=== PATIENT | male | born 1950 | race African-American/Black ===

== ENCOUNTER → 2017-08-30 | Outpatient (CLI) | payer MEDICARE, BC | END | disposition home or self-care (01) | LOC: HKI 08:45 | DX: M17.12 Unilateral primary osteoarthritis, left knee (principal); D57.1 Sickle-cell disease without crisis; Z79.01 Long term (current) use of anticoagulants | CPT/HCPCS: 73562; 73562-50 ==

== ENCOUNTER → 2017-09-20 | Outpatient (CLI) | payer MEDICARE, BC | END | disposition home or self-care (01) | LOC: HKI 10:49 | DX: Z01.818 Encounter for other preprocedural examination (principal) | CPT/HCPCS: G0463 ==

== ENCOUNTER 2017-09-30 08:15 | Observation (INO) | payer MEDICARE, BC ==
[~2017-09-30 08:15] MED LIST: ACETAMINOPHEN 1000MG/100ML IV 100 ML IVPB; CEFAZOLIN 2 GM/50 ML (PMX) 50 ML (FOR WT < 120 KG) IVPB; CELECOXIB 200 MG CAP PO; DEXAMETHASONE 4 MG/ML 1 ML INJ IV; ETOMIDATE 20 MG INJ; LANSOPRAZOLE 30 MG CAP PO; ONDANSETRON 4 MG INJ IV; TRANEXAMIC ACID 1,000 MG in D5W 100 ML AT CLOSURE X1 IVPB; TRANEXAMIC ACID 1,000 MG in D5W 100 ML AT INCISION X1 IVPB
[2017-09-30 09:29] LABS: ADD MAN DIFF? NO
[2017-09-30 09:32] LABS: WHITE BLOOD COUNT 8.3 10^3/ul (4.8-10.8)
[2017-09-30 09:32] LABS: ABNORMAL IP MESSAGE 1; BASOPHIL # 0.1 10^3/ul (0.0-0.1); BASOPHILS % 0.7 % (0.0-2.0); EOSINOPHILS # 0.1 10^3/ul (0.0-0.5); EOSINOPHILS % 0.8 % (0.0-7.0); HEMOGLOBIN 7.1 g/dl (14.0-18.0); LYMPHOCYTES # 1.1 10^3/ul (0.8-2.9); LYMPHOCYTES % 13.5 % (15.0-51.0); MEAN CORPUSCULAR HEMOGLOBIN 30.2 pg (29.0-33.0); MEAN CORPUSCULAR HGB CONC 35.5 g/dl (32.0-37.0); MEAN CORPUSCULAR VOLUME 85.1 fl (82.0-101.0); MEAN PLATELET VOLUME 10.4 fl (7.4-10.4); MONOCYTE # 1.2 10^3/ul (0.3-0.9); MONOCYTES % 14.2 % (0.0-11.0); NEUTROPHIL # 5.8 10^3/ul (1.6-7.5); NEUTROPHILS % 70.1 % (39.0-77.0); NUCLEATED RED BLOOD CELLS # 0.5 10^3/ul (0.0-0.0); NUCLEATED RED BLOOD CELLS% 5.7 /100WBC (0.0-0.0); PLATELET COUNT 354 10^3/UL (140-415); POSITIVE DIFF @See below; RED BLOOD COUNT 2.35 10^6/ul (4.70-6.10); RED CELL DISTRIBUTION WIDTH 26.8 % (11.5-14.5)
[2017-09-30 09:36] LABS: HOLD TRANSMISSIONS 1
[2017-09-30 09:53] LABS: INR 1.28; PROTIME 16.2 Sec (11.9-14.9); PT RATIO 1.3
[2017-09-30 09:54] LABS: PARTIAL THROMBOPLASTIN TIME 30.3 Sec (25.0-35.0)
[2017-09-30 09:58] LABS: ALANINE AMINOTRANSFERASE 39 IU/L (13-69); ALBUMIN/GLOBULIN RATIO 0.97; ALKALINE PHOSPHATASE 182 IU/L (42-121); ANION GAP 18 (8-16); ASPARTATE AMINO TRANSFERASE 73 IU/L (15-46); BILIRUBIN,INDIRECT 4.7 mg/dl (0-1.1); BILIRUBIN,TOTAL 4.9 mg/dl (0.2-1.3); CARBON DIOXIDE 21 mmol/L (21-31); CHLORIDE 107 mmol/L (97-110); GLUCOSE 99 mg/dl (70-220); TOTAL PROTEIN 8.1 g/dl (6.1-8.1)
[2017-09-30 10:01] LABS: BLOOD UREA NITROGEN 16 mg/dl (7-20); CALCIUM 8.2 mg/dl (8.4-10.2); CREATININE 1.01 mg/dl (0.61-1.24); POTASSIUM 4.5 mmol/L (3.5-5.1); SODIUM 141 mmol/L (135-144)
[2017-09-30] MEDS ORDERED: MIDAZOLAM 1 MG/ML 2 ML INJ (11:12)
[2017-09-30] MEDS ORDERED: PROPOFOL 20 ML (11:12)
[2017-09-30] MEDS ORDERED: FENTAnyl 50 MCG/ML VIAL (11:12)
[2017-09-30] MEDS ORDERED: BUPIVACAINE 0.75%/DEXT (SPINAL) 2 ML INJ (11:13)
[2017-09-30] MEDS ORDERED: LIDOCAINE 1% (MDV) 20 ML INJ (11:13)
[2017-09-30] MEDS: POLYMYXIN B 500000 UNIT INJ (11:48)
[2017-09-30] MEDS: BACITRACIN 50000 UNITS INJ (11:48)
[2017-09-30] MEDS ORDERED: CEFAZOLIN 1 GM INJ (11:50)
[2017-09-30] MEDS ORDERED: PHENYLephrine (100 MCG/ML) 5ML SYG (12:12)
[2017-09-30] MEDS ORDERED: FAMOTIDINE 20 MG INJ (12:23)
[2017-09-30] MEDS ORDERED: ONDANSETRON 4 MG INJ (12:23)
[2017-09-30] MEDS ORDERED: DEXAMETHASONE 4 MG/ML 1 ML INJ ×2 (12:23→13:09)
[2017-09-30] MEDS ORDERED: ROPIVACAINE 0.5 % 30 ML VIAL (13:09)
[2017-09-30] MEDS ORDERED: NA PHOSPHATE/BIPHOS 133 ML ENEMA PR (13:30)
[2017-09-30] MEDS ORDERED: HYDROmorphONE (0.2 MG/ML) 10ML SYG IV ×2 (13:30)
[2017-09-30] MEDS ORDERED: NALOXONE (0.4 MG/ML) INJ IV (13:30)
[2017-09-30] MEDS ORDERED: MEPERIDINE 25 MG INJ IV (13:30)
[2017-09-30] MEDS ORDERED: DIPHENHYDRAMINE 50 MG INJ IV (13:30)
[2017-09-30] MEDS ORDERED: BISACODYL 10 MG SUPP PR (13:30)
[2017-09-30] MEDS ORDERED: DOCUSATE SODIUM 100 MG CAP PO (13:30)
[2017-09-30] MEDS ORDERED: ONDANSETRON 4 MG INJ IV (13:30)
[2017-09-30] MEDS ORDERED: oxyCODONE 5 MG TAB PO ×3 (13:30)
[2017-09-30] MEDS ORDERED: SENNA/DOCUSATE NA (8.6MG/50MG) TAB PO (13:30)
[2017-09-30] MEDS ORDERED: KETOROLAC 15 MG INJ IV (13:30)
[2017-09-30] MEDS: ONDANSETRON 4 MG INJ IV ×2 (13:30→20:12)
[2017-09-30] MEDS ORDERED: TRIMETHOBENZAMIDE 100 MG/ML VIAL IM (13:30)
[2017-09-30] MEDS ORDERED: MAGNESIUM HYDROXIDE 30ML CUP PO (13:30)
[2017-09-30] MEDS: SOD CHLORIDE 0.9% 1,000 ML IV (16:28)
[2017-09-30] MEDS: CEFAZOLIN 1 GM/50 ML (PMX) 50 ML IVPB ×2 (16:28→21:32)
[2017-09-30] MEDS: WARFARIN 1 MG TAB PO (16:29)
[2017-09-30] MEDS: WARFARIN 5 MG TAB PO (16:29)
[2017-09-30] MEDS: CELECOXIB 100 MG CAP PO (20:11)
[2017-09-30] MEDS: GABAPENTIN 100 MG CAP PO (20:11)
[2017-10-01] MEDS: SOD CHLORIDE 0.9% 1,000 ML IV (01:50)
[2017-10-01] MEDS: ONDANSETRON 4 MG INJ IV ×2 (02:04→06:49)
[2017-10-01] MEDS: CEFAZOLIN 1 GM/50 ML (PMX) 50 ML IVPB (05:20)
[2017-10-01] MEDS: LEVOTHYROXINE 50 MCG TAB PO (05:20)
[2017-10-01 05:42] LABS: ABNORMAL IP MESSAGE 1; HEMATOCRIT 15.6 % (42.0-52.0); MEAN CORPUSCULAR HGB CONC 34.6 g/dl (32.0-37.0); MEAN CORPUSCULAR VOLUME 86.7 fl (82.0-101.0); MEAN PLATELET VOLUME 11.4 fl (7.4-10.4); NUCLEATED RED BLOOD CELLS% 3.6 /100WBC (0.0-0.0); PLATELET COUNT 202 10^3/UL (140-415); POSITIVE DIFF @See below; RED CELL DISTRIBUTION WIDTH 26.5 % (11.5-14.5)
[2017-10-01 05:42] LABS: WHITE BLOOD COUNT 9.4 10^3/ul (4.8-10.8)
[2017-10-01 05:52] LABS: ADD MAN DIFF? YES; HEMOGLOBIN 5.4 g/dl (14.0-18.0); PATH REVIEW? YES
[2017-10-01 06:03] LABS: ANION GAP 13 (8-16); BLOOD UREA NITROGEN 15 mg/dl (7-20); CALCIUM 7.9 mg/dl (8.4-10.2); CARBON DIOXIDE 21 mmol/L (21-31); CHLORIDE 110 mmol/L (97-110); CREATININE 0.85 mg/dl (0.61-1.24); GLUCOSE 145 mg/dl (70-220); POTASSIUM 4.9 mmol/L (3.5-5.1); SODIUM 139 mmol/L (135-144)
[2017-10-01 06:08] LABS: INR 1.31; PROTIME 16.5 Sec (11.9-14.9); PT RATIO 1.3
[2017-10-01] MEDS: BETHANECHOL 25 MG TAB PO (06:49)
[2017-10-01 06:55] LABS: ADD UMIC YES; UR ASCORBIC ACID NEGATIVE (NEGATIVE); UR BACTERIA FEW /HPF (NONE SEEN); UR BILIRUBIN (Dip) NEGATIVE (NEGATIVE); UR BLOOD (Dip) 2+ mg/dL (NEGATIVE); UR CLARITY SLIGHTLY CLOUDY (CLEAR); UR COLOR YELLOW (YELLOW); UR GLUCOSE (Dip) NEGATIVE (NEGATIVE); UR KETONES (Dip) NEGATIVE (NEGATIVE); UR LEUKOCYTE ESTERASE (Dip) NEGATIVE Leu/ul (NEGATIVE); UR NITRITE (Dip) NEGATIVE (NEGATIVE); UR RBC 7 /HPF (0-5); UR SPECIFIC GRAVITY (Dip) 1.004 (1.003-1.030); UR TOTAL PROTEIN (Dip) NEGATIVE (NEGATIVE); UR UROBILINOGEN (Dip) NEGATIVE (NEGATIVE); UR WBC 4 /HPF (0-5)
[2017-10-01 07:07] LABS: IMMEDIATE SPIN CROSSMATCH 1 4
[2017-10-01 07:36] LABS: ANISOCYTOSIS 2+ (0-0); BAND NEUTROPHILS #M 0.3 10^3/ul (0.0-0.6); BAND NEUTROPHILS % (M) 4 % (0-4); ERYTHROBLAST% (NRBC) (M) 7 % (0-0); GIANT THROMBO% (M) 3 % (0-0); HYPOCHROMASIA 1+ (0-0); LYMPHOCYTES #M 0.6 10^3/ul (0.8-2.9); LYMPHOCYTES % (M) 7 % (15-51); MICROCYTOSIS 2+ (0-0); MONOCYTE #M 0.1 10^3/ul (0.3-0.9); MONOCYTES % (M) 2 % (0-11); MYELOCYTES % (M) 1 % (0-0); PLATELET ESTIMATE NORMAL; POIKILOCYTOSIS 2+ (0-0); POLYCHROMASIA 3+ (0-0); RBC MORPHOLOGY COMMENT @See below; SEG NEUT #M 8.1 10^3/ul (1.6-7.5); SEGMENTED NEUTROPHILS (M) % 86 % (39-77); SICKLE CELL 2+ (0-0); SMUDGE%M 1 % (0-0); WBC MORPHOLOGY COMMENT @See below
[2017-10-01] MEDS: FOLIC ACID 1 MG TAB PO (08:50)
[2017-10-01] MEDS: GABAPENTIN 100 MG CAP PO ×2 (08:50→21:05)
[2017-10-01] MEDS: CELECOXIB 100 MG CAP PO ×2 (08:50→21:05)
[2017-10-01] MEDS: AMIODARONE 200 MG TAB PO (08:50)
[2017-10-01] MEDS: FERROUS FUMARATE (SR) TAB PO ×2 (08:50→21:05)
[2017-10-01] MEDS: DOCUSATE SODIUM 100 MG CAP PO ×2 (08:51→21:05)
[2017-10-01 16:43] LABS: ADD MAN DIFF? NO
[2017-10-01 16:45] LABS: BASOPHILS % 0.1 % (0.0-2.0); HEMATOCRIT 25.7 % (42.0-52.0); LYMPHOCYTES # 0.9 10^3/ul (0.8-2.9); LYMPHOCYTES % 6.8 % (15.0-51.0); MEAN CORPUSCULAR HEMOGLOBIN 30.1 pg (29.0-33.0); MEAN PLATELET VOLUME 10.5 fl (7.4-10.4); MONOCYTE # 1.6 10^3/ul (0.3-0.9); MONOCYTES % 11.9 % (0.0-11.0); NEUTROPHILS % 80.3 % (39.0-77.0); NUCLEATED RED BLOOD CELLS # 0.5 10^3/ul (0.0-0.0); NUCLEATED RED BLOOD CELLS% 3.9 /100WBC (0.0-0.0); PLATELET COUNT 307 10^3/UL (140-415); RED BLOOD COUNT 2.99 10^6/ul (4.70-6.10); RED CELL DISTRIBUTION WIDTH 22.8 % (11.5-14.5)
[2017-10-01 16:45] LABS: WHITE BLOOD COUNT 13.7 10^3/ul (4.8-10.8)
[2017-10-01] MEDS: WARFARIN 5 MG TAB PO (17:19)
[2017-10-02] MEDS: LEVOTHYROXINE 50 MCG TAB PO (05:31)
[2017-10-02] MEDS: PANTOPRAZOLE (EC) 40 MG TAB PO (05:31)
[2017-10-02 06:09] LABS: ADD MAN DIFF? NO
[2017-10-02 06:14] LABS: WHITE BLOOD COUNT 10.3 10^3/ul (4.8-10.8)
[2017-10-02 06:14] LABS: ABNORMAL IP MESSAGE 1; BASOPHILS % 0.3 % (0.0-2.0); EOSINOPHILS % 0.3 % (0.0-7.0); HEMATOCRIT 21.7 % (42.0-52.0); HEMOGLOBIN 7.6 g/dl (14.0-18.0); LYMPHOCYTES # 1.4 10^3/ul (0.8-2.9); LYMPHOCYTES % 13.1 % (15.0-51.0); MEAN CORPUSCULAR HEMOGLOBIN 30.3 pg (29.0-33.0); MEAN CORPUSCULAR VOLUME 86.5 fl (82.0-101.0); MEAN PLATELET VOLUME 11.3 fl (7.4-10.4); MONOCYTE # 1.5 10^3/ul (0.3-0.9); MONOCYTES % 14.1 % (0.0-11.0); NEUTROPHIL # 7.4 10^3/ul (1.6-7.5); NEUTROPHILS % 71.6 % (39.0-77.0); NUCLEATED RED BLOOD CELLS # 0.6 10^3/ul (0.0-0.0); NUCLEATED RED BLOOD CELLS% 5.7 /100WBC (0.0-0.0); PLATELET COUNT 265 10^3/UL (140-415); POSITIVE DIFF @See below; RED BLOOD COUNT 2.51 10^6/ul (4.70-6.10); RED CELL DISTRIBUTION WIDTH 23.2 % (11.5-14.5)
[2017-10-02 06:21] LABS: ANION GAP 10 (8-16); BLOOD UREA NITROGEN 16 mg/dl (7-20); CALCIUM 7.9 mg/dl (8.4-10.2); CARBON DIOXIDE 23 mmol/L (21-31); CHLORIDE 110 mmol/L (97-110); CREATININE 0.84 mg/dl (0.61-1.24); GLUCOSE 98 mg/dl (70-220); POTASSIUM 4.9 mmol/L (3.5-5.1); SODIUM 138 mmol/L (135-144)
[2017-10-02] MEDS: FERROUS FUMARATE (SR) TAB PO (08:43)
[2017-10-02] MEDS: DOCUSATE SODIUM 100 MG CAP PO (08:43)
[2017-10-02] MEDS: CELECOXIB 100 MG CAP PO (08:43)
[2017-10-02] MEDS: GABAPENTIN 100 MG CAP PO (08:43)
[2017-10-02] MEDS: AMIODARONE 200 MG TAB PO (08:43)
[2017-10-02] MEDS: FOLIC ACID 1 MG TAB PO (08:43)
== END 2017-10-02 14:10 | disposition home health service (06) ==
LOC: REC 08:15 → MS1 15:09
DX: M17.12 Unilateral primary osteoarthritis, left knee (principal); M87.9 Osteonecrosis, unspecified; D57.1 Sickle-cell disease without crisis; I48.0 Paroxysmal atrial fibrillation; E03.9 Hypothyroidism, unspecified; N40.1 Benign prostatic hyperplasia with lower urinary tract symptoms; R33.8 Other retention of urine; M06.9 Rheumatoid arthritis, unspecified; K21.9 Gastro-esophageal reflux disease without esophagitis
CPT/HCPCS: 27447; 36430; 73560; 80048; 80053; 81001; 85025; 85610; 85730; 86850; 86900; 86901; 86920; 87081; 87086; 88304; 88311; 97110; 97116; 97161; 97167; 97530; 99217

== ENCOUNTER → 2017-10-11 | Outpatient (CLI) | payer MEDICARE, BC | END | disposition home or self-care (01) | LOC: HKI 10:55 | DX: Z47.1 Aftercare following joint replacement surgery (principal); Z96.652 Presence of left artificial knee joint | CPT/HCPCS: 73560; 73560-LT ==

== ENCOUNTER → 2017-11-08 | Outpatient (CLI) | payer MEDICARE, BC | END | disposition home or self-care (01) | LOC: HKI 10:51 | DX: Z09 Encounter for follow-up examination after completed treatment for conditions other than malignant neoplasm (principal); Z96.652 Presence of left artificial knee joint | CPT/HCPCS: 73560; 73560-LT ==

== ENCOUNTER → 2018-01-31 | Outpatient (CLI) | payer MEDICARE, BC | END | disposition home or self-care (01) | LOC: HKI 09:12 | DX: Z47.1 Aftercare following joint replacement surgery (principal); Z96.652 Presence of left artificial knee joint; Z96.642 Presence of left artificial hip joint | CPT/HCPCS: 73560; 73560-LT ==

== ENCOUNTER 2018-02-12 17:26 | Inpatient (IN) | payer MEDICARE, BC ==
[2018-02-12 18:23] LABS: ADD MAN DIFF? NO
[2018-02-12 18:25] LABS: WHITE BLOOD COUNT 19.7 10^3/ul (4.8-10.8)
[2018-02-12 18:26] LABS: ABNORMAL IP MESSAGE 1; BASOPHILS % 0.2 % (0.0-2.0); HEMATOCRIT 22.2 % (42.0-52.0); HEMOGLOBIN 7.9 g/dl (14.0-18.0); LYMPHOCYTES # 0.5 10^3/ul (0.8-2.9); LYMPHOCYTES % 2.5 % (15.0-51.0); MEAN CORPUSCULAR HEMOGLOBIN 32.4 pg (29.0-33.0); MEAN CORPUSCULAR HGB CONC 35.6 g/dl (32.0-37.0); MEAN PLATELET VOLUME 10.1 fl (7.4-10.4); MONOCYTE # 1.7 10^3/ul (0.3-0.9); MONOCYTES % 8.5 % (0.0-11.0); NEUTROPHIL # 17.4 10^3/ul (1.6-7.5); NUCLEATED RED BLOOD CELLS # 0.5 10^3/ul (0.0-0.0); NUCLEATED RED BLOOD CELLS% 2.3 /100WBC (0.0-0.0); PLATELET COUNT 423 10^3/UL (140-415); POSITIVE DIFF @See below; RED BLOOD COUNT 2.44 10^6/ul (4.70-6.10)
[2018-02-12] MEDS: SODIUM CHLORIDE 0.9% 1L BAG IV* (18:29)
[2018-02-12 18:41] LABS: INR 1.64; PROTIME 19.8 Sec (11.9-14.9); PT RATIO 1.5
[2018-02-12 18:42] LABS: PARTIAL THROMBOPLASTIN TIME 39.5 Sec (25.0-35.0)
[2018-02-12 18:43] LABS: ALANINE AMINOTRANSFERASE 44 IU/L (13-69); ALBUMIN 4.1 g/dl (3.3-4.9); ALBUMIN/GLOBULIN RATIO 0.89; ALKALINE PHOSPHATASE 169 IU/L (42-121); ANION GAP 19 (8-16); ASPARTATE AMINO TRANSFERASE 85 IU/L (15-46); BILIRUBIN,TOTAL 7.1 mg/dl (0.2-1.3); BLOOD UREA NITROGEN 14 mg/dl (7-20); CALCIUM 8.5 mg/dl (8.4-10.2); CARBON DIOXIDE 20 mmol/L (21-31); CHLORIDE 98 mmol/L (97-110); CREATININE 0.87 mg/dl (0.61-1.24); GLUCOSE 125 mg/dl (70-220); LIPASE 88 U/L (23-300); POTASSIUM 4.8 mmol/L (3.5-5.1); SODIUM 132 mmol/L (135-144); TOTAL PROTEIN 8.7 g/dl (6.1-8.1)
[2018-02-12 18:53] LABS: LACTIC ACID 4.4 mmol/L (0.5-2.0)
[2018-02-12] MEDS: PIPER-TAZO 3.375 GM IV (PMX) 100 ML IVPB ×2 (19:11→23:52)
[2018-02-12] MEDS: ACETAMINOPHEN 325 MG TAB PO (19:11)
[2018-02-12] MEDS: HYDROmorphONE 0.5 MG/0.5 ML SYG IV (19:30)
[2018-02-12] MEDS: SOD CHLORIDE 0.9% 100 ML (20:14)
[2018-02-12] MEDS: IOHEXOL 300MG/ML 150 ML BTL (20:14)
[2018-02-12] MEDS ORDERED: ONDANSETRON 4 MG INJ IV (20:30)
[2018-02-12] MEDS ORDERED: ACETAMINOPHEN 325 MG TAB PO (20:30)
[2018-02-12 21:12] LABS: HAAIG REFLEX REFLEX FILED
[2018-02-12 21:52] LABS: HEPATITIS B SURFACE ANTIGEN NEGATIVE (NEGATIVE)
[2018-02-12 22:10] LABS: HEPATITIS B CORE ANTIBODY NEGATIVE (NEGATIVE); HEPATITIS C VIRAL ANTIBODY NEGATIVE (NEGATIVE)
[2018-02-12 22:48] LABS: LACTIC ACID 3.2 mmol/L (0.5-2.0)
[2018-02-12] MEDS: HYDROmorphONE 1 MG/ML SYG IV (23:07)
[2018-02-12] MEDS: SOD CHLORIDE 0.45% 1,000 ML IV (23:49)
[2018-02-13] MEDS: HYDROmorphONE 1 MG/ML SYG IV ×3 (05:06→23:26)
[2018-02-13] MEDS: PANTOPRAZOLE 40 MG INJ IV (05:06)
[2018-02-13 06:24] LABS: ABNORMAL IP MESSAGE 1; HEMATOCRIT 19.2 % (42.0-52.0); MEAN CORPUSCULAR HEMOGLOBIN 32.5 pg (29.0-33.0); MEAN CORPUSCULAR HGB CONC 35.4 g/dl (32.0-37.0); MEAN CORPUSCULAR VOLUME 91.9 fl (82.0-101.0); MEAN PLATELET VOLUME 10.6 fl (7.4-10.4); NUCLEATED RED BLOOD CELLS% 1.4 /100WBC (0.0-0.0); PLATELET COUNT 320 10^3/UL (140-415); POSITIVE DIFF @See below; RED BLOOD COUNT 2.09 10^6/ul (4.70-6.10); RED CELL DISTRIBUTION WIDTH 22.5 % (11.5-14.5)
[2018-02-13] MEDS: LEVOTHYROXINE 50 MCG TAB PO (06:33)
[2018-02-13] MEDS: PIPER-TAZO 3.375 GM IV (PMX) 100 ML IVPB ×4 (06:33→23:38)
[2018-02-13 06:39] LABS: LACTIC ACID 1.4 mmol/L (0.5-2.0)
[2018-02-13 06:56] LABS: ADD MAN DIFF? YES; HEMOGLOBIN 6.8 g/dl (14.0-18.0)
[2018-02-13 07:39] LABS: ALBUMIN 3.4 g/dl (3.3-4.9); ALBUMIN/GLOBULIN RATIO 0.94; ALKALINE PHOSPHATASE 138 IU/L (42-121); ANION GAP 11 (8-16); ASPARTATE AMINO TRANSFERASE 61 IU/L (15-46); BILIRUBIN,INDIRECT 5.7 mg/dl (0-1.1); BILIRUBIN,TOTAL 8.7 mg/dl (0.2-1.3); BLOOD UREA NITROGEN 14 mg/dl (7-20); CARBON DIOXIDE 21 mmol/L (21-31); CHLORIDE 104 mmol/L (97-110); CREATININE 0.76 mg/dl (0.61-1.24); GLUCOSE 109 mg/dl (70-220); MAGNESIUM 2.2 mg/dl (1.7-2.5); POTASSIUM 4.4 mmol/L (3.5-5.1); SODIUM 132 mmol/L (135-144)
[2018-02-13 08:01] LABS: ALANINE AMINOTRANSFERASE 44 IU/L (13-69)
[2018-02-13 08:05] LABS: FREE T4 (FREE THYROXINE) 2.63 ng/dl (0.78-2.44)
[2018-02-13] MEDS: AMIODARONE 200 MG TAB PO (09:09)
[2018-02-13] MEDS: FOLIC ACID 1 MG TAB PO (09:09)
[2018-02-13 09:33] LABS: PT RATIO 1.8
[2018-02-13 09:35] LABS: INR 2.04; PARTIAL THROMBOPLASTIN TIME 53.6 Sec (25.0-35.0); PROTIME 23.5 Sec (11.9-14.9)
[2018-02-13 09:55] LABS: ANISOCYTOSIS 3+ (0-0); BAND NEUTROPHILS #M 0.2 10^3/ul (0.0-0.6); BAND NEUTROPHILS % (M) 1 % (0-4); BASOPHIL #M 0.2 10^3/ul (0.0-0.0); BASOPHILS % (M) 1 % (0-2); ERYTHROBLAST% (NRBC) (M) 2 % (0-0); LYMPHOCYTES % (M) 4 % (15-51); MONOCYTES % (M) 8 % (0-11); OVALOCYTES 1+ (0-0); PLATELET ESTIMATE NORMAL; POIKILOCYTOSIS 2+ (0-0); POLYCHROMASIA 2+ (0-0); SEG NEUT #M 21.6 10^3/ul (1.6-7.5); SEGMENTED NEUTROPHILS (M) % 86 % (39-77); SICKLE CELL 2+ (0-0); SMUDGE%M 15 % (0-0); TARGET CELLS 2+ (0-0)
[2018-02-13] MEDS: SOD CHLORIDE 0.45% 1,000 ML IV ×2 (12:20→17:49)
[2018-02-13] MEDS: ACETAMINOPHEN 325 MG TAB PO (14:39)
[2018-02-14] MEDS: ACETAMINOPHEN 325 MG TAB PO (01:09)
[2018-02-14] MEDS: HYDROmorphONE 1 MG/ML SYG IV ×4 (04:42→21:35)
[2018-02-14] MEDS: PANTOPRAZOLE 40 MG INJ IV (06:01)
[2018-02-14] MEDS: PIPER-TAZO 3.375 GM IV (PMX) 100 ML IVPB ×4 (06:02→23:03)
[2018-02-14] MEDS: LEVOTHYROXINE 50 MCG TAB PO (06:30)
[2018-02-14] MEDS: FOLIC ACID 1 MG TAB PO (08:25)
[2018-02-14] MEDS: AMIODARONE 200 MG TAB PO (08:27)
[2018-02-14 11:32] LABS: WHITE BLOOD COUNT 27.1 10^3/ul (4.8-10.8)
[2018-02-14 11:32] LABS: ABNORMAL IP MESSAGE 1; HEMATOCRIT 23.1 % (42.0-52.0); HEMOGLOBIN 8.1 g/dl (14.0-18.0); MEAN CORPUSCULAR HEMOGLOBIN 31.6 pg (29.0-33.0); MEAN CORPUSCULAR HGB CONC 35.1 g/dl (32.0-37.0); MEAN CORPUSCULAR VOLUME 90.2 fl (82.0-101.0); MEAN PLATELET VOLUME 11.3 fl (7.4-10.4); NUCLEATED RED BLOOD CELLS% 0.8 /100WBC (0.0-0.0); PLATELET COUNT 289 10^3/UL (140-415); POSITIVE DIFF @See below; RED BLOOD COUNT 2.56 10^6/ul (4.70-6.10); RED CELL DISTRIBUTION WIDTH 19.6 % (11.5-14.5)
[2018-02-14 11:39] LABS: ADD MAN DIFF? YES
[2018-02-14 11:50] LABS: LACTIC ACID 1.8 mmol/L (0.5-2.0)
[2018-02-14 11:51] LABS: ALANINE AMINOTRANSFERASE 41 IU/L (13-69); ALBUMIN 2.8 g/dl (3.3-4.9); ALBUMIN/GLOBULIN RATIO 0.73; ALKALINE PHOSPHATASE 126 IU/L (42-121); AMYLASE 74 U/L (11-123); ANION GAP 14 (8-16); ASPARTATE AMINO TRANSFERASE 43 IU/L (15-46); BILIRUBIN,INDIRECT 6.1 mg/dl (0-1.1); BILIRUBIN,TOTAL 10.1 mg/dl (0.2-1.3); BLOOD UREA NITROGEN 19 mg/dl (7-20); CALCIUM 8.6 mg/dl (8.4-10.2); CARBON DIOXIDE 20 mmol/L (21-31); CHLORIDE 105 mmol/L (97-110); CREATININE 0.93 mg/dl (0.61-1.24); GLUCOSE 90 mg/dl (70-220); LIPASE 60 U/L (23-300); POTASSIUM 4.2 mmol/L (3.5-5.1); SODIUM 135 mmol/L (135-144); TOTAL PROTEIN 6.6 g/dl (6.1-8.1)
[2018-02-14 13:18] LABS: ANISOCYTOSIS 2+ (0-0); BAND NEUTROPHILS % (M) 4 % (0-4); EOSINOPHILS % (M) 1 % (0-7); LYMPHOCYTES % (M) 4 % (15-51); MONOCYTE #M 1.8 10^3/ul (0.3-0.9); MONOCYTES % (M) 7 % (0-11); MYELOCYTES #M 0.2 10^3/ul (0.0-0.0); MYELOCYTES % (M) 1 % (0-0); PLATELET ESTIMATE NORMAL; POIKILOCYTOSIS 1+ (0-0); POLYCHROMASIA 3+ (0-0); SEG NEUT #M 22.8 10^3/ul (1.6-7.5); SEGMENTED NEUTROPHILS (M) % 83 % (39-77); SICKLE CELL 1+ (0-0); SMUDGE%M 6 % (0-0); TARGET CELLS 2+ (0-0)
[2018-02-14] MEDS: SOD CHLORIDE 0.45% 1,000 ML IV (15:14)
[2018-02-14 18:47] LABS: INR 2.29; PROTIME 25.8 Sec (11.9-14.9)
[2018-02-14 18:48] LABS: PARTIAL THROMBOPLASTIN TIME 53.6 Sec (25.0-35.0)
[2018-02-15] MEDS: HYDROmorphONE 1 MG/ML SYG IV ×4 (02:20→19:04)
[2018-02-15 03:54] LABS: IMMEDIATE SPIN CROSSMATCH 1 1
[2018-02-15] MEDS: SOD CHLORIDE 0.45% 1,000 ML IV ×3 (05:40→20:02)
[2018-02-15] MEDS: PANTOPRAZOLE 40 MG INJ IV (05:40)
[2018-02-15] MEDS: PIPER-TAZO 3.375 GM IV (PMX) 100 ML IVPB ×4 (05:45→23:15)
[2018-02-15] MEDS: LEVOTHYROXINE 50 MCG TAB PO (06:25)
[2018-02-15] MEDS: ACETAMINOPHEN 325 MG TAB PO (06:45)
[2018-02-15 07:29] LABS: ABNORMAL IP MESSAGE 1; HEMATOCRIT 18.9 % (42.0-52.0); MEAN CORPUSCULAR HEMOGLOBIN 31.4 pg (29.0-33.0); MEAN CORPUSCULAR HGB CONC 34.9 g/dl (32.0-37.0); MEAN PLATELET VOLUME 11.3 fl (7.4-10.4); PLATELET COUNT 264 10^3/UL (140-415); POSITIVE DIFF @See below; RED CELL DISTRIBUTION WIDTH 19.9 % (11.5-14.5)
[2018-02-15 07:40] LABS: HEMOGLOBIN 6.6 g/dl (14.0-18.0)
[2018-02-15 07:41] LABS: PATH REVIEW? YES
[2018-02-15 07:45] LABS: INR 2.08; PROTIME 23.9 Sec (11.9-14.9); PT RATIO 1.9
[2018-02-15 07:46] LABS: PARTIAL THROMBOPLASTIN TIME 58.9 Sec (23.0-35.0)
[2018-02-15 07:48] LABS: ALANINE AMINOTRANSFERASE 33 IU/L (13-69); ALBUMIN 2.8 g/dl (3.3-4.9); ALBUMIN/GLOBULIN RATIO 0.75; ALKALINE PHOSPHATASE 101 IU/L (42-121); ANION GAP 15 (8-16); ASPARTATE AMINO TRANSFERASE 36 IU/L (15-46); BILIRUBIN,INDIRECT 6.3 mg/dl (0-1.1); BILIRUBIN,TOTAL 10.3 mg/dl (0.2-1.3); BLOOD UREA NITROGEN 22 mg/dl (7-20); CALCIUM 8.5 mg/dl (8.4-10.2); CARBON DIOXIDE 21 mmol/L (21-31); CHLORIDE 107 mmol/L (97-110); CREATININE 1.01 mg/dl (0.61-1.24); GLUCOSE 91 mg/dl (70-220); POTASSIUM 3.6 mmol/L (3.5-5.1); SODIUM 139 mmol/L (135-144); TOTAL PROTEIN 6.5 g/dl (6.1-8.1)
[2018-02-15 08:33] LABS: ANISOCYTOSIS 2+ (0-0); BURR CELLS 1+ (0-0); LYMPHOCYTES #M 0.9 10^3/ul (0.8-2.9); LYMPHOCYTES % (M) 4 % (15-51); MONOCYTE #M 1.6 10^3/ul (0.3-0.9); MONOCYTES % (M) 7 % (0-11); PLATELET ESTIMATE NORMAL; POIKILOCYTOSIS 2+ (0-0); POLYCHROMASIA 3+ (0-0); SCHISTOCYTES 1+ (0-0); SEGMENTED NEUTROPHILS (M) % 89 % (39-77); SICKLE CELL 1+ (0-0); SMUDGE%M 11 % (0-0); TARGET CELLS 1+ (0-0); TEAR DROP CELLS 1+ (0-0)
[2018-02-15 08:37] LABS: ADD MAN DIFF? YES
[2018-02-15] MEDS: FOLIC ACID 1 MG TAB PO (08:43)
[2018-02-15] MEDS: AMIODARONE 200 MG TAB PO (08:45)
[2018-02-15 11:13] LABS: IMMEDIATE SPIN CROSSMATCH 1
[2018-02-15] MEDS: PHYTONADIONE 10 MG in DEXTROSE 5% 50 ML IVPB ×2 (12:54→21:38)
[2018-02-15] MEDS: PHYTONADIONE (1 MG/ML PO SYG) PO (23:41)
[2018-02-16] MEDS: HYDROmorphONE 1 MG/ML SYG IV ×2 (00:35→10:25)
[2018-02-16] MEDS: ONDANSETRON 4 MG INJ IV (00:35)
[2018-02-16] MEDS: PANTOPRAZOLE 40 MG INJ IV (05:30)
[2018-02-16] MEDS: PIPER-TAZO 3.375 GM IV (PMX) 100 ML IVPB ×3 (05:30→17:52)
[2018-02-16 06:47] LABS: ADD MAN DIFF? NO
[2018-02-16 06:51] LABS: WHITE BLOOD COUNT 21.5 10^3/ul (4.8-10.8)
[2018-02-16 06:51] LABS: ABNORMAL IP MESSAGE 1; BASOPHIL # 0.1 10^3/ul (0.0-0.1); BASOPHILS % 0.4 % (0.0-2.0); EOSINOPHILS % 0.2 % (0.0-7.0); LYMPHOCYTES # 0.7 10^3/ul (0.8-2.9); LYMPHOCYTES % 3.1 % (15.0-51.0); MEAN CORPUSCULAR HEMOGLOBIN 30.5 pg (29.0-33.0); MEAN CORPUSCULAR HGB CONC 34.8 g/dl (32.0-37.0); MEAN CORPUSCULAR VOLUME 87.8 fl (82.0-101.0); MEAN PLATELET VOLUME 10.8 fl (7.4-10.4); MONOCYTE # 2.5 10^3/ul (0.3-0.9); MONOCYTES % 11.7 % (0.0-11.0); NEUTROPHILS % 83.7 % (39.0-77.0); NUCLEATED RED BLOOD CELLS # 0.4 10^3/ul (0.0-0.0); PLATELET COUNT 330 10^3/UL (140-415); POSITIVE DIFF @See below; RED BLOOD COUNT 2.62 10^6/ul (4.70-6.10); RED CELL DISTRIBUTION WIDTH 20.8 % (11.5-14.5)
[2018-02-16] MEDS: LEVOTHYROXINE 50 MCG TAB PO ×2 (07:00→08:08)
[2018-02-16 07:11] LABS: INR 1.21; PROTIME 15.5 Sec (11.9-14.9); PT RATIO 1.2
[2018-02-16 07:12] LABS: PARTIAL THROMBOPLASTIN TIME 43.6 Sec (23.0-35.0)
[2018-02-16] MEDS: FOLIC ACID 1 MG TAB PO ×2 (07:38→08:08)
[2018-02-16] MEDS: AMIODARONE 200 MG TAB PO (08:08)
[2018-02-16 10:08] LABS: PARTIAL THROMBOPLASTIN TIME 42.7 Sec (23.0-35.0)
[2018-02-16 10:36] LABS: ANISOCYTOSIS 2+ (0-0); BAND NEUTROPHILS #M 0.4 10^3/ul (0.0-0.6); BAND NEUTROPHILS % (M) 2 % (0-4); BURR CELLS 1+ (0-0); ERYTHROBLAST% (NRBC) (M) 2 % (0-0); HYPOCHROMASIA 1+ (0-0); LYMPHOCYTES #M 1.2 10^3/ul (0.8-2.9); LYMPHOCYTES % (M) 6 % (15-51); MONOCYTES % (M) 14 % (0-11); PLATELET ESTIMATE NORMAL; POIKILOCYTOSIS 3+ (0-0); POLYCHROMASIA 1+ (0-0); SEG NEUT #M 16.9 10^3/ul (1.6-7.5); SEGMENTED NEUTROPHILS (M) % 78 % (39-77); SICKLE CELL 1+ (0-0); TARGET CELLS 1+ (0-0)
[2018-02-16] MEDS: SOD CHLORIDE 0.45% 1,000 ML IV (15:24)
[2018-02-16 18:28] LABS: 50/50 PTT IMMED 38.7 Sec
[2018-02-16 18:30] LABS: 50/50 PTT 1 HOUR 46.8 Sec
[2018-02-16] MEDS ORDERED: BUPIVACAINE 0.25%/EPI (SDV) 30 ML INJ (19:02)
[2018-02-16] MEDS ORDERED: LIDOCAINE 1% (MPF) 10 ML INJ (19:02)
[2018-02-16] MEDS ORDERED: IOHEXOL 300MG/ML 30 ML BTL (19:03)
[2018-02-16] MEDS ORDERED: LIDOCAINE 1% (MDV) 20 ML INJ ×2 (19:04→22:04)
[2018-02-16] MEDS: LIDOCAINE 1% (MPF) 30 ML INJ INJ (20:28)
[2018-02-16] MEDS: BUPIVACAINE 0.25%/EPI (SDV) 30 ML INJ INJ (20:28)
[2018-02-16] MEDS ORDERED: ETOMIDATE 20 MG INJ (22:03)
[2018-02-16] MEDS ORDERED: ROCURONIUM 50 MG INJ (22:04)
[2018-02-16] MEDS ORDERED: METOPROLOL 5 MG INJ (22:04)
[2018-02-16] MEDS ORDERED: ACETAMINOPHEN 1000MG/100ML IV 100 ML (22:04)
[2018-02-16] MEDS ORDERED: ONDANSETRON 4 MG INJ (22:04)
[2018-02-16] MEDS ORDERED: MIDAZOLAM 1 MG/ML 2 ML INJ (22:04)
[2018-02-16] MEDS ORDERED: ROPIVACAINE 0.2% 20 ML VIAL (22:04)
[2018-02-16] MEDS ORDERED: DEXAMETHASONE 4 MG/ML 1 ML INJ (22:04)
[2018-02-16] MEDS ORDERED: SUGAMMADEX SODIUM 200 MG/2 ML VIAL IV (22:22)
[2018-02-16] MEDS ORDERED: HYDROmorphONE 1 MG/5 ML IV SYRINGE IV ×2 (23:00)
[2018-02-16 23:04] LABS: ADD MAN DIFF? NO
[2018-02-16 23:07] LABS: WHITE BLOOD COUNT 19.1 10^3/ul (4.8-10.8)
[2018-02-16 23:07] LABS: ABNORMAL IP MESSAGE 1; BASOPHIL # 0.1 10^3/ul (0.0-0.1); BASOPHILS % 0.3 % (0.0-2.0); EOSINOPHILS % 0.1 % (0.0-7.0); HEMATOCRIT 19.2 % (42.0-52.0); LYMPHOCYTES # 0.4 10^3/ul (0.8-2.9); MEAN CORPUSCULAR HEMOGLOBIN 30.3 pg (29.0-33.0); MEAN CORPUSCULAR HGB CONC 34.9 g/dl (32.0-37.0); MEAN CORPUSCULAR VOLUME 86.9 fl (82.0-101.0); MEAN PLATELET VOLUME 10.3 fl (7.4-10.4); MONOCYTES % 5.2 % (0.0-11.0); NEUTROPHIL # 17.4 10^3/ul (1.6-7.5); NEUTROPHILS % 90.7 % (39.0-77.0); NUCLEATED RED BLOOD CELLS # 0.4 10^3/ul (0.0-0.0); NUCLEATED RED BLOOD CELLS% 2.1 /100WBC (0.0-0.0); PLATELET COUNT 240 10^3/UL (140-415); POSITIVE DIFF @See below; RED BLOOD COUNT 2.21 10^6/ul (4.70-6.10); RED CELL DISTRIBUTION WIDTH 21.2 % (11.5-14.5)
[2018-02-16 23:14] LABS: HEMOGLOBIN 6.7 g/dl (14.0-18.0)
[2018-02-17] MEDS ORDERED: DIPHENHYDRAMINE 50 MG INJ (00:24)
[2018-02-17] MEDS: PIPER-TAZO 3.375 GM IV (PMX) 100 ML IVPB ×5 (00:46→23:24)
[2018-02-17 02:36] LABS: AHG CROSSMATCH 1 2
[2018-02-17] MEDS: PANTOPRAZOLE 40 MG INJ IV (06:06)
[2018-02-17] MEDS: LEVOTHYROXINE 50 MCG TAB PO (06:06)
[2018-02-17 06:11] LABS: ADD MAN DIFF? NO
[2018-02-17 06:14] LABS: WHITE BLOOD COUNT 16.5 10^3/ul (4.8-10.8)
[2018-02-17 06:14] LABS: ABNORMAL IP MESSAGE 1; BASOPHILS % 0.2 % (0.0-2.0); HEMATOCRIT 22.1 % (42.0-52.0); HEMOGLOBIN 7.7 g/dl (14.0-18.0); LYMPHOCYTES # 0.5 10^3/ul (0.8-2.9); LYMPHOCYTES % 2.7 % (15.0-51.0); MEAN CORPUSCULAR HEMOGLOBIN 30.3 pg (29.0-33.0); MEAN CORPUSCULAR HGB CONC 34.8 g/dl (32.0-37.0); MEAN PLATELET VOLUME 11.5 fl (7.4-10.4); MONOCYTE # 0.7 10^3/ul (0.3-0.9); MONOCYTES % 4.3 % (0.0-11.0); NEUTROPHIL # 15.2 10^3/ul (1.6-7.5); NEUTROPHILS % 91.8 % (39.0-77.0); NUCLEATED RED BLOOD CELLS # 0.4 10^3/ul (0.0-0.0); NUCLEATED RED BLOOD CELLS% 2.4 /100WBC (0.0-0.0); PLATELET COUNT 230 10^3/UL (140-415); POSITIVE DIFF @See below; RED BLOOD COUNT 2.54 10^6/ul (4.70-6.10); RED CELL DISTRIBUTION WIDTH 19.6 % (11.5-14.5)
[2018-02-17 07:05] LABS: ALANINE AMINOTRANSFERASE 55 IU/L (13-69); ALBUMIN 2.5 g/dl (3.3-4.9); ALBUMIN/GLOBULIN RATIO 0.71; ALKALINE PHOSPHATASE 73 IU/L (42-121); ANION GAP 15 (8-16); ASPARTATE AMINO TRANSFERASE 108 IU/L (15-46); BILIRUBIN,TOTAL 13.7 mg/dl (0.2-1.3); CALCIUM 8.2 mg/dl (8.4-10.2); CARBON DIOXIDE 19 mmol/L (21-31); CHLORIDE 111 mmol/L (97-110); CREATININE 1.21 mg/dl (0.61-1.24); GLUCOSE 120 mg/dl (70-220); POTASSIUM 3.8 mmol/L (3.5-5.1); SODIUM 141 mmol/L (135-144)
[2018-02-17] MEDS: HYDROCHLOROTHIAZIDE 25 MG TAB PO (07:32)
[2018-02-17] MEDS: FOLIC ACID 1 MG TAB PO (07:32)
[2018-02-17] MEDS: AMIODARONE 200 MG TAB PO (07:33)
[2018-02-17 07:49] LABS: BLOOD UREA NITROGEN 32 mg/dl (7-20)
[2018-02-17] MEDS: HYDROmorphONE 1 MG/ML SYG IV ×3 (11:52→23:17)
[2018-02-17] MEDS: ATENOLOL 50 MG TAB NGT ×2 (15:23→23:17)
[2018-02-17] MEDS: SOD CHLORIDE 0.45% 1,000 ML IV ×2 (15:26→23:00)
[2018-02-18] MEDS: PIPER-TAZO 3.375 GM IV (PMX) 100 ML IVPB ×4 (05:50→23:48)
[2018-02-18] MEDS: PANTOPRAZOLE 40 MG INJ IV (05:50)
[2018-02-18] MEDS: LEVOTHYROXINE 50 MCG TAB PO (05:50)
[2018-02-18 07:16] LABS: ABNORMAL IP MESSAGE 1; HEMOGLOBIN 7.4 g/dl (14.0-18.0); MEAN CORPUSCULAR HEMOGLOBIN 30.5 pg (29.0-33.0); MEAN CORPUSCULAR HGB CONC 35.2 g/dl (32.0-37.0); MEAN CORPUSCULAR VOLUME 86.4 fl (82.0-101.0); MEAN PLATELET VOLUME 11.7 fl (7.4-10.4); NUCLEATED RED BLOOD CELLS% 3.6 /100WBC (0.0-0.0); PLATELET COUNT 199 10^3/UL (140-415); POSITIVE DIFF @See below; RED BLOOD COUNT 2.43 10^6/ul (4.70-6.10); RED CELL DISTRIBUTION WIDTH 20.6 % (11.5-14.5)
[2018-02-18 07:16] LABS: WHITE BLOOD COUNT 13.5 10^3/ul (4.8-10.8)
[2018-02-18 07:30] LABS: ADD MAN DIFF? YES
[2018-02-18 08:26] LABS: ALANINE AMINOTRANSFERASE 52 IU/L (13-69); ALBUMIN 2.4 g/dl (3.3-4.9); ALBUMIN/GLOBULIN RATIO 0.66; ALKALINE PHOSPHATASE 73 IU/L (42-121); ANION GAP 14 (8-16); ASPARTATE AMINO TRANSFERASE 66 IU/L (15-46); BILIRUBIN,INDIRECT 4.3 mg/dl (0-1.1); BILIRUBIN,TOTAL 14.5 mg/dl (0.2-1.3); BLOOD UREA NITROGEN 37 mg/dl (7-20); CALCIUM 8.4 mg/dl (8.4-10.2); CARBON DIOXIDE 22 mmol/L (21-31); CHLORIDE 111 mmol/L (97-110); CREATININE 1.17 mg/dl (0.61-1.24); GLUCOSE 96 mg/dl (70-220); POTASSIUM 3.7 mmol/L (3.5-5.1); SODIUM 143 mmol/L (135-144)
[2018-02-18] MEDS: FOLIC ACID 1 MG TAB PO (08:50)
[2018-02-18] MEDS: ATENOLOL 50 MG TAB NGT ×2 (08:52→20:20)
[2018-02-18] MEDS: AMIODARONE 200 MG TAB PO (08:52)
[2018-02-18 10:20] LABS: ANISOCYTOSIS 2+ (0-0); BURR CELLS 1+ (0-0); ERYTHROBLAST% (NRBC) (M) 5 % (0-0); GIANT THROMBO% (M) 7 % (0-0); LYMPHOCYTES #M 0.5 10^3/ul (0.8-2.9); LYMPHOCYTES % (M) 4 % (15-51); MONOCYTE #M 2.5 10^3/ul (0.3-0.9); MONOCYTES % (M) 19 % (0-11); MYELOCYTES #M 0.2 10^3/ul (0.0-0.0); MYELOCYTES % (M) 2 % (0-0); PLATELET ESTIMATE NORMAL; POIKILOCYTOSIS 1+ (0-0); POLYCHROMASIA 3+ (0-0); SCHISTOCYTES 1+ (0-0); SEGMENTED NEUTROPHILS (M) % 75 % (39-77); SICKLE CELL 1+ (0-0); SMUDGE%M 2 % (0-0); TARGET CELLS 1+ (0-0)
[2018-02-18] MEDS: HYDROmorphONE 1 MG/ML SYG IV ×3 (11:04→20:19)
[2018-02-18] MEDS: SOD CHLORIDE 0.45% 1,000 ML IV ×2 (11:58→23:48)
[2018-02-18 17:36] LABS: ANA SCREEN POSITIVE (NEGATIVE)
[2018-02-18 19:06] LABS: ANA PATTERN HOMOGENEOUS
[2018-02-19] MEDS: HYDROmorphONE 1 MG/ML SYG IV ×4 (01:31→23:07)
[2018-02-19] MEDS: SOD CHLORIDE 0.45% 1,000 ML IV ×2 (01:40→15:16)
[2018-02-19] MEDS: PANTOPRAZOLE 40 MG INJ IV (06:29)
[2018-02-19] MEDS: PIPER-TAZO 3.375 GM IV (PMX) 100 ML IVPB ×4 (06:30→23:06)
[2018-02-19] MEDS: LEVOTHYROXINE 50 MCG TAB PO (06:30)
[2018-02-19] MEDS: FOLIC ACID 1 MG TAB PO (08:17)
[2018-02-19] MEDS: AMIODARONE 200 MG TAB PO (08:18)
[2018-02-19] MEDS: ATENOLOL 50 MG TAB NGT ×2 (08:18→21:02)
[2018-02-19] MEDS: LACTATED RINGER'S 500 ML IV (11:49)
[2018-02-19 20:42] LABS: HEXAGONAL PHASE CONFIRMATION POSITIVE (NEGATIVE); THROMBIN CLOTTING TIME 16 sec (13-19)
[2018-02-20] MEDS: SOD CHLORIDE 0.45% 1,000 ML IV ×3 (02:39→21:43)
[2018-02-20] MEDS: PIPER-TAZO 3.375 GM IV (PMX) 100 ML IVPB ×3 (06:38→17:33)
[2018-02-20] MEDS: HYDROmorphONE 1 MG/ML SYG IV (06:38)
[2018-02-20] MEDS: LEVOTHYROXINE 50 MCG TAB PO (06:38)
[2018-02-20] MEDS: PANTOPRAZOLE 40 MG INJ IV (06:38)
[2018-02-20 06:58] LABS: ABNORMAL IP MESSAGE 1; HEMOGLOBIN 7.4 g/dl (14.0-18.0); MEAN CORPUSCULAR HEMOGLOBIN 29.7 pg (29.0-33.0); MEAN CORPUSCULAR HGB CONC 33.6 g/dl (32.0-37.0); MEAN CORPUSCULAR VOLUME 88.4 fl (82.0-101.0); MEAN PLATELET VOLUME 11.2 fl (7.4-10.4); NUCLEATED RED BLOOD CELLS% 20.5 /100WBC (0.0-0.0); PLATELET COUNT 331 10^3/UL (140-415); POSITIVE DIFF @See below; RED BLOOD COUNT 2.49 10^6/ul (4.70-6.10); RED CELL DISTRIBUTION WIDTH 21.8 % (11.5-14.5)
[2018-02-20 06:58] LABS: WHITE BLOOD COUNT 19.4 10^3/ul (4.8-10.8)
[2018-02-20 07:18] LABS: ADD MAN DIFF? YES
[2018-02-20 07:26] LABS: ALANINE AMINOTRANSFERASE 42 IU/L (13-69); ALBUMIN 2.3 g/dl (3.3-4.9); ALBUMIN/GLOBULIN RATIO 0.63; ALKALINE PHOSPHATASE 70 IU/L (42-121); ANION GAP 13 (8-16); ASPARTATE AMINO TRANSFERASE 51 IU/L (15-46); BILIRUBIN,INDIRECT 3.2 mg/dl (0-1.1); BILIRUBIN,TOTAL 12.8 mg/dl (0.2-1.3); BLOOD UREA NITROGEN 30 mg/dl (7-20); CALCIUM 8.1 mg/dl (8.4-10.2); CARBON DIOXIDE 21 mmol/L (21-31); CHLORIDE 110 mmol/L (97-110); GLUCOSE 82 mg/dl (70-220); POTASSIUM 3.2 mmol/L (3.5-5.1); SODIUM 141 mmol/L (135-144); TOTAL PROTEIN 5.9 g/dl (6.1-8.1)
[2018-02-20] MEDS: AMIODARONE 200 MG TAB PO (08:13)
[2018-02-20] MEDS: FOLIC ACID 1 MG TAB PO (08:13)
[2018-02-20] MEDS: ATENOLOL 50 MG TAB NGT ×2 (08:13→21:00)
[2018-02-20 13:11] LABS: ANISOCYTOSIS 1+ (0-0); BAND NEUTROPHILS #M 0.1 10^3/ul (0.0-0.6); BAND NEUTROPHILS % (M) 1 % (0-4); BURR CELLS 1+ (0-0); ERYTHROBLAST% (NRBC) (M) 26 % (0-0); GIANT THROMBO% (M) 9 % (0-0); LYMPHOCYTES #M 1.3 10^3/ul (0.8-2.9); LYMPHOCYTES % (M) 7 % (15-51); MONOCYTE #M 2.1 10^3/ul (0.3-0.9); MONOCYTES % (M) 11 % (0-11); MYELOCYTES #M 0.7 10^3/ul (0.0-0.0); MYELOCYTES % (M) 4 % (0-0); OVALOCYTES 1+ (0-0); PLATELET ESTIMATE NORMAL; POIKILOCYTOSIS 1+ (0-0); POLYCHROMASIA 3+ (0-0); PROMYELOCYTES #M 0.3 10^3/ul (0-0); PROMYELOCYTES % (M) 2 % (0-0); SCHISTOCYTES 1+ (0-0); SEG NEUT #M 14.6 10^3/ul (1.6-7.5); SEGMENTED NEUTROPHILS (M) % 75 % (39-77); SICKLE CELL 1+ (0-0); SMUDGE%M 1 % (0-0); TARGET CELLS 2+ (0-0)
[2018-02-20 15:16] LABS: CARDIOLIPIN AB - IGA <11 APL; CARDIOLIPIN AB - IGG <14 GPL; CARDIOLIPIN AB - IGM <12 MPL
[2018-02-21] MEDS: PIPER-TAZO 3.375 GM IV (PMX) 100 ML IVPB ×4 (00:09→17:55)
[2018-02-21] MEDS: LEVOTHYROXINE 50 MCG TAB PO (06:33)
[2018-02-21] MEDS: PANTOPRAZOLE (EC) 40 MG TAB PO (06:33)
[2018-02-21] MEDS: FOLIC ACID 1 MG TAB PO (08:14)
[2018-02-21] MEDS: AMIODARONE 200 MG TAB PO (08:14)
[2018-02-21] MEDS: ATENOLOL 50 MG TAB NGT ×2 (08:14→21:00)
[2018-02-21] MEDS: SOD CHLORIDE 0.45% 1,000 ML IV (20:20)
[2018-02-22] MEDS: PIPER-TAZO 3.375 GM IV (PMX) 100 ML IVPB ×4 (01:14→18:21)
[2018-02-22] MEDS: PANTOPRAZOLE (EC) 40 MG TAB PO (05:19)
[2018-02-22 06:56] LABS: ADD MAN DIFF? NO
[2018-02-22 07:02] LABS: ABNORMAL IP MESSAGE 1; BASOPHIL # 0.1 10^3/ul (0.0-0.1); BASOPHILS % 0.3 % (0.0-2.0); EOSINOPHILS # 0.2 10^3/ul (0.0-0.5); EOSINOPHILS % 0.9 % (0.0-7.0); HEMATOCRIT 19.7 % (42.0-52.0); LYMPHOCYTES # 0.7 10^3/ul (0.8-2.9); LYMPHOCYTES % 3.1 % (15.0-51.0); MEAN CORPUSCULAR HEMOGLOBIN 31.1 pg (29.0-33.0); MEAN CORPUSCULAR HGB CONC 34.5 g/dl (32.0-37.0); MEAN PLATELET VOLUME 11.3 fl (7.4-10.4); MONOCYTE # 1.4 10^3/ul (0.3-0.9); NEUTROPHIL # 20.6 10^3/ul (1.6-7.5); NEUTROPHILS % 86.7 % (39.0-77.0); NUCLEATED RED BLOOD CELLS # 3.9 10^3/ul (0.0-0.0); NUCLEATED RED BLOOD CELLS% 16.5 /100WBC (0.0-0.0); PLATELET COUNT 359 10^3/UL (140-415); POSITIVE DIFF @See below; RED BLOOD COUNT 2.19 10^6/ul (4.70-6.10); RED CELL DISTRIBUTION WIDTH 23.1 % (11.5-14.5)
[2018-02-22 07:02] LABS: WHITE BLOOD COUNT 23.8 10^3/ul (4.8-10.8)
[2018-02-22] MEDS: LEVOTHYROXINE 50 MCG TAB PO (07:04)
[2018-02-22 07:17] LABS: HEMOGLOBIN 6.8 g/dl (14.0-18.0)
[2018-02-22 07:26] LABS: ALANINE AMINOTRANSFERASE 41 IU/L (13-69); ALBUMIN 2.2 g/dl (3.3-4.9); ALBUMIN/GLOBULIN RATIO 0.73; ALKALINE PHOSPHATASE 78 IU/L (42-121); ANION GAP 8 (8-16); ASPARTATE AMINO TRANSFERASE 59 IU/L (15-46); BILIRUBIN,INDIRECT 2.6 mg/dl (0-1.1); BILIRUBIN,TOTAL 11.4 mg/dl (0.2-1.3); BLOOD UREA NITROGEN 15 mg/dl (7-20); CALCIUM 7.2 mg/dl (8.4-10.2); CARBON DIOXIDE 22 mmol/L (21-31); CHLORIDE 112 mmol/L (97-110); CREATININE 0.84 mg/dl (0.61-1.24); GLUCOSE 84 mg/dl (70-220); SODIUM 139 mmol/L (135-144); TOTAL PROTEIN 5.2 g/dl (6.1-8.1)
[2018-02-22 07:32] LABS: POTASSIUM 2.8 mmol/L (3.5-5.1)
[2018-02-22] MEDS: ATENOLOL 50 MG TAB NGT ×2 (08:15→21:00)
[2018-02-22] MEDS: FOLIC ACID 1 MG TAB PO (08:16)
[2018-02-22] MEDS: AMIODARONE 200 MG TAB PO (08:16)
[2018-02-22] MEDS: POTASSIUM CHLORIDE 100 ML IVPB ×4 (09:08→18:30)
[2018-02-22] MEDS: SOD CHLORIDE 0.45% 1,000 ML IV ×2 (09:40→23:06)
[2018-02-22 15:19] LABS: POTASSIUM 3.4 mmol/L (3.5-5.1)
[2018-02-22] MEDS: POTASSIUM CHLORIDE (SR) 20 MEQ TAB PO (15:23)
[2018-02-22 18:42] LABS: AHG CROSSMATCH 1 2
[2018-02-23] MEDS: PIPER-TAZO 3.375 GM IV (PMX) 100 ML IVPB ×4 (00:35→17:42)
[2018-02-23] MEDS: PANTOPRAZOLE (EC) 40 MG TAB PO (05:42)
[2018-02-23] MEDS: LEVOTHYROXINE 50 MCG TAB PO (06:12)
[2018-02-23 06:45] LABS: HEMATOCRIT 22.9 % (42.0-52.0); HEMOGLOBIN 7.9 g/dl (14.0-18.0); MEAN CORPUSCULAR HEMOGLOBIN 31.2 pg (29.0-33.0); MEAN CORPUSCULAR HGB CONC 34.5 g/dl (32.0-37.0); MEAN CORPUSCULAR VOLUME 90.5 fl (82.0-101.0); MEAN PLATELET VOLUME 11.2 fl (7.4-10.4); NUCLEATED RED BLOOD CELLS% 6.9 /100WBC (0.0-0.0); PLATELET COUNT 320 10^3/UL (140-415); RED BLOOD COUNT 2.53 10^6/ul (4.70-6.10); RED CELL DISTRIBUTION WIDTH 21.5 % (11.5-14.5)
[2018-02-23 06:45] LABS: WHITE BLOOD COUNT 26.8 10^3/ul (4.8-10.8)
[2018-02-23 06:46] LABS: ABNORMAL IP MESSAGE 1; POSITIVE DIFF @See below
[2018-02-23 07:04] LABS: INR 1.27; PROTIME 16.1 Sec (11.9-14.9); PT RATIO 1.3
[2018-02-23 07:09] LABS: ADD MAN DIFF? YES
[2018-02-23] MEDS: FOLIC ACID 1 MG TAB PO (07:35)
[2018-02-23] MEDS: ATENOLOL 50 MG TAB NGT ×2 (07:35→21:00)
[2018-02-23] MEDS: AMIODARONE 200 MG TAB PO (07:35)
[2018-02-23 07:54] LABS: ALANINE AMINOTRANSFERASE 44 IU/L (13-69); ALBUMIN/GLOBULIN RATIO 0.62; ALKALINE PHOSPHATASE 105 IU/L (42-121); ANION GAP 10 (8-16); ASPARTATE AMINO TRANSFERASE 59 IU/L (15-46); BILIRUBIN,INDIRECT 3.4 mg/dl (0-1.1); BILIRUBIN,TOTAL 15.5 mg/dl (0.2-1.3); BLOOD UREA NITROGEN 12 mg/dl (7-20); CALCIUM 7.4 mg/dl (8.4-10.2); CARBON DIOXIDE 19 mmol/L (21-31); CHLORIDE 114 mmol/L (97-110); CREATININE 0.77 mg/dl (0.61-1.24); GLUCOSE 79 mg/dl (70-220); POTASSIUM 3.7 mmol/L (3.5-5.1); SODIUM 139 mmol/L (135-144); TOTAL PROTEIN 5.2 g/dl (6.1-8.1)
[2018-02-23 08:17] LABS: MAGNESIUM 2.5 mg/dl (1.7-2.5)
[2018-02-23 09:40] LABS: ANISOCYTOSIS 2+ (0-0); BURR CELLS 1+ (0-0); EOSINOPHILS % (M) 1 % (0-7); ERYTHROBLAST% (NRBC) (M) 11 % (0-0); GIANT THROMBO% (M) 1 % (0-0); LYMPHOCYTES #M 0.5 10^3/ul (0.8-2.9); LYMPHOCYTES % (M) 2 % (15-51); MYELOCYTES #M 0.2 10^3/ul (0.0-0.0); MYELOCYTES % (M) 1 % (0-0); PLATELET ESTIMATE NORMAL; POIKILOCYTOSIS 3+ (0-0); POLYCHROMASIA 2+ (0-0); SEGMENTED NEUTROPHILS (M) % 96 % (39-77); SICKLE CELL 3+ (0-0); SMUDGE%M 70 % (0-0); TARGET CELLS 1+ (0-0)
[2018-02-23] MEDS: SOD CHLORIDE 0.45% 1,000 ML IV (11:35)
[2018-02-23] MEDS: TAMSULOSIN (SR) 0.4 MG CAP PO (21:08)
[2018-02-24] MEDS: PIPER-TAZO 3.375 GM IV (PMX) 100 ML IVPB ×4 (00:10→20:34)
[2018-02-24] MEDS: SOD CHLORIDE 0.45% 1,000 ML IV ×2 (04:51→14:20)
[2018-02-24] MEDS: PANTOPRAZOLE (EC) 40 MG TAB PO (06:00)
[2018-02-24] MEDS: LEVOTHYROXINE 50 MCG TAB PO (06:25)
[2018-02-24] MEDS ORDERED: LIDOCAINE 2% (SDV) 5 ML INJ (07:00)
[2018-02-24] MEDS: FOLIC ACID 1 MG TAB PO (08:54)
[2018-02-24] MEDS: AMIODARONE 200 MG TAB PO (08:54)
[2018-02-24] MEDS: FINASTERIDE 5 MG TAB PO (08:54)
[2018-02-24] MEDS: ATENOLOL 50 MG TAB NGT ×2 (08:55→20:35)
[2018-02-24] MEDS ORDERED: IOHEXOL 300MG/ML 30 ML BTL (14:53)
[2018-02-24] MEDS ORDERED: PROPOFOL 20 ML (15:11)
[2018-02-24] MEDS: INDOMETHACIN 50 MG SUPP PR (16:00)
[2018-02-24] MEDS ORDERED: ROCURONIUM 50 MG INJ (16:05)
[2018-02-24] MEDS ORDERED: SUGAMMADEX SODIUM 200 MG/2 ML VIAL IV (17:07)
[2018-02-24] MEDS ORDERED: KETOROLAC 30 MG INJ IV (17:30)
[2018-02-24] MEDS ORDERED: ONDANSETRON 4 MG INJ IV (17:30)
[2018-02-24] MEDS ORDERED: hydrALAzine 20 MG INJ IV (17:30)
[2018-02-24] MEDS ORDERED: EPHEDrine SULFATE 50 MG/5 ML SYG IV (17:30)
[2018-02-24] MEDS ORDERED: DIPHENHYDRAMINE 50 MG INJ IV (17:30)
[2018-02-24] MEDS ORDERED: LABETALOL HCL 20MG INJ IV (17:30)
[2018-02-24] MEDS ORDERED: MIDAZOLAM 1 MG/ML 2 ML INJ IV (17:30)
[2018-02-24] MEDS ORDERED: METOCLOPRAMIDE 10 MG INJ IV (17:30)
[2018-02-24] MEDS ORDERED: FENTAnyl 50 MCG/ML VIAL IV ×3 (17:30)
[2018-02-24] MEDS ORDERED: ALBUTEROL 0.083% (NEB) 2.5 MG/3 ML AMP HHN (17:30)
[2018-02-24] MEDS: TAMSULOSIN (SR) 0.4 MG CAP PO (20:35)
[2018-02-24] MEDS: URSODIOL 300 MG CAP PO (21:43)
[2018-02-25] MEDS: PIPER-TAZO 3.375 GM IV (PMX) 100 ML IVPB ×5 (00:25→23:57)
[2018-02-25] MEDS: SOD CHLORIDE 0.45% 1,000 ML IV ×2 (04:21→11:53)
[2018-02-25] MEDS: PANTOPRAZOLE (EC) 40 MG TAB PO (05:30)
[2018-02-25 06:13] LABS: ADD MAN DIFF? NO
[2018-02-25 06:22] LABS: WHITE BLOOD COUNT 18.8 10^3/ul (4.8-10.8)
[2018-02-25 06:22] LABS: BASOPHIL # 0.1 10^3/ul (0.0-0.1); BASOPHILS % 0.7 % (0.0-2.0); EOSINOPHILS # 0.4 10^3/ul (0.0-0.5); EOSINOPHILS % 2.1 % (0.0-7.0); HEMATOCRIT 22.3 % (42.0-52.0); HEMOGLOBIN 7.6 g/dl (14.0-18.0); LYMPHOCYTES # 1.2 10^3/ul (0.8-2.9); LYMPHOCYTES % 6.3 % (15.0-51.0); MEAN CORPUSCULAR HEMOGLOBIN 30.8 pg (29.0-33.0); MEAN CORPUSCULAR HGB CONC 34.1 g/dl (32.0-37.0); MEAN CORPUSCULAR VOLUME 90.3 fl (82.0-101.0); MEAN PLATELET VOLUME 11.1 fl (7.4-10.4); MONOCYTE # 1.4 10^3/ul (0.3-0.9); MONOCYTES % 7.2 % (0.0-11.0); NEUTROPHIL # 15.3 10^3/ul (1.6-7.5); NEUTROPHILS % 81.9 % (39.0-77.0); NUCLEATED RED BLOOD CELLS # 0.3 10^3/ul (0.0-0.0); NUCLEATED RED BLOOD CELLS% 1.4 /100WBC (0.0-0.0); PLATELET COUNT 472 10^3/UL (140-415); RED BLOOD COUNT 2.47 10^6/ul (4.70-6.10); RED CELL DISTRIBUTION WIDTH 20.8 % (11.5-14.5)
[2018-02-25] MEDS: LEVOTHYROXINE 50 MCG TAB PO (06:32)
[2018-02-25 06:35] LABS: LACTATE DEHYDROGENASE 589 IU/L (313-618)
[2018-02-25 06:39] LABS: ALANINE AMINOTRANSFERASE 39 IU/L (13-69); ALBUMIN 1.9 g/dl (3.3-4.9); ALBUMIN/GLOBULIN RATIO 0.59; ALKALINE PHOSPHATASE 87 IU/L (42-121); ANION GAP 12 (8-16); ASPARTATE AMINO TRANSFERASE 50 IU/L (15-46); BILIRUBIN,INDIRECT 2.4 mg/dl (0-1.1); BILIRUBIN,TOTAL 11.6 mg/dl (0.2-1.3); BLOOD UREA NITROGEN 10 mg/dl (7-20); CALCIUM 7.3 mg/dl (8.4-10.2); CARBON DIOXIDE 18 mmol/L (21-31); CHLORIDE 113 mmol/L (97-110); CREATININE 0.73 mg/dl (0.61-1.24); GLUCOSE 103 mg/dl (70-220); POTASSIUM 3.4 mmol/L (3.5-5.1); SODIUM 140 mmol/L (135-144); TOTAL PROTEIN 5.1 g/dl (6.1-8.1)
[2018-02-25] MEDS: URSODIOL 300 MG CAP PO ×2 (08:51→20:39)
[2018-02-25] MEDS: FOLIC ACID 1 MG TAB PO (08:51)
[2018-02-25] MEDS: FINASTERIDE 5 MG TAB PO (08:51)
[2018-02-25] MEDS: ATENOLOL 50 MG TAB NGT ×2 (08:52→20:39)
[2018-02-25] MEDS: AMIODARONE 200 MG TAB PO (08:53)
[2018-02-25] MEDS: POTASSIUM CHLORIDE (SR) 20 MEQ TAB PO (14:54)
[2018-02-25] MEDS: POTASSIUM CHLORIDE 100 ML IVPB ×2 (15:36→18:05)
[2018-02-25] MEDS: TAMSULOSIN (SR) 0.4 MG CAP PO (20:39)
[2018-02-26] MEDS: LEVOTHYROXINE 50 MCG TAB PO (06:26)
[2018-02-26] MEDS: PANTOPRAZOLE (EC) 40 MG TAB PO (06:26)
[2018-02-26] MEDS: PIPER-TAZO 3.375 GM IV (PMX) 100 ML IVPB ×3 (06:26→17:28)
[2018-02-26] MEDS: SOD CHLORIDE 0.45% 1,000 ML IV ×2 (06:27→17:28)
[2018-02-26 07:07] LABS: ALANINE AMINOTRANSFERASE 34 IU/L (13-69); ALBUMIN 2.2 g/dl (3.3-4.9); ALBUMIN/GLOBULIN RATIO 0.73; ALKALINE PHOSPHATASE 102 IU/L (42-121); ANION GAP 9 (8-16); ASPARTATE AMINO TRANSFERASE 55 IU/L (15-46); BILIRUBIN,INDIRECT 2.1 mg/dl (0-1.1); BILIRUBIN,TOTAL 10.7 mg/dl (0.2-1.3); BLOOD UREA NITROGEN 8 mg/dl (7-20); CALCIUM 7.6 mg/dl (8.4-10.2); CARBON DIOXIDE 20 mmol/L (21-31); CHLORIDE 115 mmol/L (97-110); CREATININE 0.68 mg/dl (0.61-1.24); GLUCOSE 80 mg/dl (70-220); POTASSIUM 4.6 mmol/L (3.5-5.1); SODIUM 139 mmol/L (135-144); TOTAL PROTEIN 5.2 g/dl (6.1-8.1)
[2018-02-26] MEDS: URSODIOL 300 MG CAP PO ×2 (09:07→22:19)
[2018-02-26] MEDS: FOLIC ACID 1 MG TAB PO (09:07)
[2018-02-26] MEDS: FINASTERIDE 5 MG TAB PO (09:07)
[2018-02-26] MEDS: AMIODARONE 200 MG TAB PO (09:08)
[2018-02-26] MEDS: ATENOLOL 50 MG TAB NGT ×2 (09:09→22:20)
[2018-02-26] MEDS: TAMSULOSIN (SR) 0.4 MG CAP PO (22:19)
[2018-02-27] MEDS: PIPER-TAZO 3.375 GM IV (PMX) 100 ML IVPB ×4 (05:08→17:57)
[2018-02-27] MEDS: PANTOPRAZOLE (EC) 40 MG TAB PO (06:21)
[2018-02-27] MEDS: LEVOTHYROXINE 50 MCG TAB PO (06:21)
[2018-02-27 07:02] LABS: ABNORMAL IP MESSAGE 1; HEMATOCRIT 22.7 % (42.0-52.0); HEMOGLOBIN 7.8 g/dl (14.0-18.0); MEAN CORPUSCULAR HEMOGLOBIN 31.5 pg (29.0-33.0); MEAN CORPUSCULAR HGB CONC 34.4 g/dl (32.0-37.0); MEAN CORPUSCULAR VOLUME 91.5 fl (82.0-101.0); MEAN PLATELET VOLUME 11.8 fl (7.4-10.4); NUCLEATED RED BLOOD CELLS% 1.6 /100WBC (0.0-0.0); PLATELET COUNT 518 10^3/UL (140-415); POSITIVE DIFF @See below; RED BLOOD COUNT 2.48 10^6/ul (4.70-6.10); RED CELL DISTRIBUTION WIDTH 21.7 % (11.5-14.5)
[2018-02-27 07:02] LABS: WHITE BLOOD COUNT 25.7 10^3/ul (4.8-10.8)
[2018-02-27 07:07] LABS: ADD MAN DIFF? YES
[2018-02-27 07:19] LABS: ALANINE AMINOTRANSFERASE 36 IU/L (13-69); ALBUMIN 1.9 g/dl (3.3-4.9); ALBUMIN/GLOBULIN RATIO 0.59; ALKALINE PHOSPHATASE 136 IU/L (42-121); ANION GAP 11 (8-16); ASPARTATE AMINO TRANSFERASE 50 IU/L (15-46); BILIRUBIN,TOTAL 10.1 mg/dl (0.2-1.3); BLOOD UREA NITROGEN 9 mg/dl (7-20); CALCIUM 7.6 mg/dl (8.4-10.2); CARBON DIOXIDE 19 mmol/L (21-31); CHLORIDE 112 mmol/L (97-110); CREATININE 0.79 mg/dl (0.61-1.24); GLUCOSE 93 mg/dl (70-220); POTASSIUM 3.8 mmol/L (3.5-5.1); SODIUM 138 mmol/L (135-144); TOTAL PROTEIN 5.1 g/dl (6.1-8.1)
[2018-02-27 07:24] LABS: PHOSPHORUS 2.1 mg/dl (2.5-4.9)
[2018-02-27 07:24] LABS: MAGNESIUM 1.9 mg/dl (1.7-2.5)
[2018-02-27 08:07] LABS: ANISOCYTOSIS 2+ (0-0); BURR CELLS 2+ (0-0); EOSINOPHILS % (M) 1 % (0-7); GIANT THROMBO% (M) 6 % (0-0); HYPOCHROMASIA 1+ (0-0); LYMPHOCYTES #M 0.2 10^3/ul (0.8-2.9); LYMPHOCYTES % (M) 1 % (15-51); MONOCYTE #M 0.7 10^3/ul (0.3-0.9); MONOCYTES % (M) 3 % (0-11); PLATELET ESTIMATE INCREASED; POIKILOCYTOSIS 2+ (0-0); POLYCHROMASIA 2+ (0-0); SEGMENTED NEUTROPHILS (M) % 95 % (39-77); SICKLE CELL 1+ (0-0); SMUDGE%M 2 % (0-0); TARGET CELLS 1+ (0-0)
[2018-02-27] MEDS: AMIODARONE 200 MG TAB PO (09:27)
[2018-02-27] MEDS: ATENOLOL 50 MG TAB NGT ×2 (09:27→21:07)
[2018-02-27] MEDS: URSODIOL 300 MG CAP PO ×2 (09:27→21:07)
[2018-02-27] MEDS: FOLIC ACID 1 MG TAB PO (09:27)
[2018-02-27] MEDS: SOD CHLORIDE 0.45% 1,000 ML IV ×2 (09:28→22:45)
[2018-02-27] MEDS: FINASTERIDE 5 MG TAB PO (09:28)
[2018-02-27] MEDS: POTASSIUM PHOSPHATE 15 MM in SOD CHLORIDE 0.9% 250 ML IVPB (11:34)
[2018-02-27] MEDS: TAMSULOSIN (SR) 0.4 MG CAP PO (21:07)
[2018-02-28] MEDS: PANTOPRAZOLE (EC) 40 MG TAB PO (05:56)
[2018-02-28] MEDS: PIPER-TAZO 3.375 GM IV (PMX) 100 ML IVPB ×3 (05:56→11:38)
[2018-02-28 06:04] LABS: ADD MAN DIFF? NO
[2018-02-28 06:14] LABS: WHITE BLOOD COUNT 24.2 10^3/ul (4.8-10.8)
[2018-02-28 06:14] LABS: ABNORMAL IP MESSAGE 1; BASOPHIL # 0.2 10^3/ul (0.0-0.1); BASOPHILS % 0.9 % (0.0-2.0); EOSINOPHILS # 0.4 10^3/ul (0.0-0.5); EOSINOPHILS % 1.7 % (0.0-7.0); HEMATOCRIT 21.1 % (42.0-52.0); HEMOGLOBIN 7.4 g/dl (14.0-18.0); LYMPHOCYTES # 1.4 10^3/ul (0.8-2.9); LYMPHOCYTES % 5.7 % (15.0-51.0); MEAN CORPUSCULAR HEMOGLOBIN 31.1 pg (29.0-33.0); MEAN CORPUSCULAR HGB CONC 35.1 g/dl (32.0-37.0); MEAN CORPUSCULAR VOLUME 88.7 fl (82.0-101.0); MONOCYTES % 8.3 % (0.0-11.0); NEUTROPHIL # 19.7 10^3/ul (1.6-7.5); NEUTROPHILS % 81.4 % (39.0-77.0); NUCLEATED RED BLOOD CELLS # 0.3 10^3/ul (0.0-0.0); NUCLEATED RED BLOOD CELLS% 1.1 /100WBC (0.0-0.0); PLATELET COUNT 495 10^3/UL (140-415); POSITIVE DIFF @See below; RED BLOOD COUNT 2.38 10^6/ul (4.70-6.10); RED CELL DISTRIBUTION WIDTH 21.4 % (11.5-14.5)
[2018-02-28] MEDS: LEVOTHYROXINE 50 MCG TAB PO (06:33)
[2018-02-28 06:34] LABS: ALANINE AMINOTRANSFERASE 31 IU/L (13-69); ALBUMIN 2.1 g/dl (3.3-4.9); ALKALINE PHOSPHATASE 118 IU/L (42-121); ANION GAP 9 (8-16); ASPARTATE AMINO TRANSFERASE 49 IU/L (15-46); BILIRUBIN,INDIRECT 1.8 mg/dl (0-1.1); BILIRUBIN,TOTAL 10.1 mg/dl (0.2-1.3); BLOOD UREA NITROGEN 9 mg/dl (7-20); CALCIUM 7.4 mg/dl (8.4-10.2); CARBON DIOXIDE 19 mmol/L (21-31); CHLORIDE 113 mmol/L (97-110); CREATININE 0.74 mg/dl (0.61-1.24); GLUCOSE 82 mg/dl (70-220); SODIUM 137 mmol/L (135-144); TOTAL PROTEIN 5.1 g/dl (6.1-8.1)
[2018-02-28] MEDS: SOD CHLORIDE 0.45% 1,000 ML IV ×2 (06:34→12:20)
[2018-02-28] MEDS: URSODIOL 300 MG CAP PO ×2 (09:07→21:23)
[2018-02-28] MEDS: ATENOLOL 50 MG TAB NGT (09:07)
[2018-02-28] MEDS: AMIODARONE 200 MG TAB PO (09:08)
[2018-02-28] MEDS: FINASTERIDE 5 MG TAB PO (09:08)
[2018-02-28] MEDS: FOLIC ACID 1 MG TAB PO (09:08)
[2018-02-28] MEDS: WARFARIN 10 MG TAB PO (18:38)
[2018-02-28] MEDS: ATENOLOL 50 MG TAB PO (18:39)
[2018-02-28] MEDS: TAMSULOSIN (SR) 0.4 MG CAP PO (21:23)
[2018-03-01] MEDS: PANTOPRAZOLE (EC) 40 MG TAB PO (05:37)
[2018-03-01] MEDS: LEVOTHYROXINE 50 MCG TAB PO (06:35)
[2018-03-01 07:06] LABS: PROTIME 15.4 Sec (11.9-14.9); PT RATIO 1.2
[2018-03-01 07:07] LABS: PARTIAL THROMBOPLASTIN TIME 37.7 Sec (23.0-35.0)
[2018-03-01] MEDS: FOLIC ACID 1 MG TAB PO (08:46)
[2018-03-01] MEDS: ATENOLOL 50 MG TAB PO ×2 (08:46→20:23)
[2018-03-01] MEDS: URSODIOL 300 MG CAP PO ×2 (08:46→20:23)
[2018-03-01] MEDS: FINASTERIDE 5 MG TAB PO (08:46)
[2018-03-01] MEDS: AMIODARONE 200 MG TAB PO (08:46)
[2018-03-01 12:23] LABS: MITOCHONDRIAL TB NEGATIVE (NEGATIVE); SMOOTH MUSCLE AB SCREEN NEGATIVE (NEGATIVE)
[2018-03-01] MEDS: WARFARIN 5 MG TAB PO (17:57)
[2018-03-01] MEDS: TAMSULOSIN (SR) 0.4 MG CAP PO (20:23)
[2018-03-02 06:10] LABS: ADD MAN DIFF? NO
[2018-03-02 06:22] LABS: WHITE BLOOD COUNT 23.9 10^3/ul (4.8-10.8)
[2018-03-02 06:22] LABS: ABNORMAL IP MESSAGE 1; BASOPHIL # 0.1 10^3/ul (0.0-0.1); BASOPHILS % 0.6 % (0.0-2.0); EOSINOPHILS # 0.5 10^3/ul (0.0-0.5); EOSINOPHILS % 2.3 % (0.0-7.0); HEMATOCRIT 19.6 % (42.0-52.0); HEMOGLOBIN 7.1 g/dl (14.0-18.0); LYMPHOCYTES # 1.5 10^3/ul (0.8-2.9); LYMPHOCYTES % 6.1 % (15.0-51.0); MEAN CORPUSCULAR HGB CONC 36.2 g/dl (32.0-37.0); MEAN CORPUSCULAR VOLUME 88.3 fl (82.0-101.0); MEAN PLATELET VOLUME 12.1 fl (7.4-10.4); MONOCYTE # 2.3 10^3/ul (0.3-0.9); MONOCYTES % 9.8 % (0.0-11.0); NEUTROPHIL # 18.8 10^3/ul (1.6-7.5); NEUTROPHILS % 78.8 % (39.0-77.0); NUCLEATED RED BLOOD CELLS # 0.1 10^3/ul (0.0-0.0); NUCLEATED RED BLOOD CELLS% 0.6 /100WBC (0.0-0.0); PLATELET COUNT 491 10^3/UL (140-415); POSITIVE DIFF @See below; RED BLOOD COUNT 2.22 10^6/ul (4.70-6.10); RED CELL DISTRIBUTION WIDTH 21.3 % (11.5-14.5)
[2018-03-02 06:40] LABS: PROTIME 18.4 Sec (11.9-14.9); PT RATIO 1.4
[2018-03-02] MEDS: PANTOPRAZOLE (EC) 40 MG TAB PO (06:40)
[2018-03-02] MEDS: LEVOTHYROXINE 50 MCG TAB PO (06:40)
[2018-03-02 06:42] LABS: PARTIAL THROMBOPLASTIN TIME 47.8 Sec (23.0-35.0)
[2018-03-02 07:05] LABS: ALBUMIN 2.2 g/dl (3.3-4.9); ALKALINE PHOSPHATASE 136 IU/L (42-121); ANION GAP 9 (8-16); ASPARTATE AMINO TRANSFERASE 65 IU/L (15-46); BILIRUBIN,INDIRECT 1.9 mg/dl (0-1.1); BILIRUBIN,TOTAL 9.9 mg/dl (0.2-1.3); BLOOD UREA NITROGEN 13 mg/dl (7-20); CALCIUM 7.7 mg/dl (8.4-10.2); CARBON DIOXIDE 19 mmol/L (21-31); CHLORIDE 113 mmol/L (97-110); CREATININE 0.93 mg/dl (0.61-1.24); GLUCOSE 89 mg/dl (70-220); POTASSIUM 3.9 mmol/L (3.5-5.1); SODIUM 137 mmol/L (135-144); TOTAL PROTEIN 5.3 g/dl (6.1-8.1)
[2018-03-02 07:39] LABS: ALANINE AMINOTRANSFERASE 36 IU/L (13-69)
[2018-03-02] MEDS: AMIODARONE 200 MG TAB PO (08:04)
[2018-03-02 08:05] LABS: ERYTHROCYTE SEDIMENTATION RATE 53 mm/Hr (0-20)
[2018-03-02] MEDS: URSODIOL 300 MG CAP PO ×2 (08:05→21:59)
[2018-03-02] MEDS: FINASTERIDE 5 MG TAB PO (08:06)
[2018-03-02] MEDS: FOLIC ACID 1 MG TAB PO (08:06)
[2018-03-02] MEDS: ATENOLOL 50 MG TAB PO ×2 (08:06→21:59)
[2018-03-02] MEDS: WARFARIN 5 MG TAB PO (18:09)
[2018-03-02] MEDS: TAMSULOSIN (SR) 0.4 MG CAP PO (21:58)
[2018-03-03 06:12] LABS: ADD MAN DIFF? NO
[2018-03-03 06:24] LABS: WHITE BLOOD COUNT 23.5 10^3/ul (4.8-10.8)
[2018-03-03 06:24] LABS: ABNORMAL IP MESSAGE 1; BASOPHIL # 0.1 10^3/ul (0.0-0.1); BASOPHILS % 0.3 % (0.0-2.0); EOSINOPHILS # 0.3 10^3/ul (0.0-0.5); EOSINOPHILS % 1.4 % (0.0-7.0); HEMATOCRIT 19.8 % (42.0-52.0); LYMPHOCYTES # 1.4 10^3/ul (0.8-2.9); LYMPHOCYTES % 5.9 % (15.0-51.0); MEAN CORPUSCULAR HEMOGLOBIN 31.4 pg (29.0-33.0); MEAN CORPUSCULAR HGB CONC 35.4 g/dl (32.0-37.0); MEAN CORPUSCULAR VOLUME 88.8 fl (82.0-101.0); MEAN PLATELET VOLUME 11.6 fl (7.4-10.4); MONOCYTE # 2.3 10^3/ul (0.3-0.9); MONOCYTES % 9.6 % (0.0-11.0); NEUTROPHIL # 19.1 10^3/ul (1.6-7.5); NEUTROPHILS % 80.9 % (39.0-77.0); NUCLEATED RED BLOOD CELLS # 0.2 10^3/ul (0.0-0.0); NUCLEATED RED BLOOD CELLS% 0.6 /100WBC (0.0-0.0); PLATELET COUNT 431 10^3/UL (140-415); POSITIVE DIFF @See below; RED BLOOD COUNT 2.23 10^6/ul (4.70-6.10); RED CELL DISTRIBUTION WIDTH 21.2 % (11.5-14.5)
[2018-03-03 06:41] LABS: INR 1.84; PROTIME 21.7 Sec (11.9-14.9); PT RATIO 1.7
[2018-03-03] MEDS: LEVOTHYROXINE 50 MCG TAB PO (07:02)
[2018-03-03] MEDS: PANTOPRAZOLE (EC) 40 MG TAB PO (07:02)
[2018-03-03 07:06] LABS: ALANINE AMINOTRANSFERASE 35 IU/L (13-69); ALBUMIN 1.9 g/dl (3.3-4.9); ALBUMIN/GLOBULIN RATIO 0.59; ALKALINE PHOSPHATASE 121 IU/L (42-121); ANION GAP 11 (8-16); ASPARTATE AMINO TRANSFERASE 75 IU/L (15-46); BILIRUBIN,INDIRECT 2.6 mg/dl (0-1.1); BILIRUBIN,TOTAL 10.8 mg/dl (0.2-1.3); BLOOD UREA NITROGEN 17 mg/dl (7-20); CALCIUM 7.9 mg/dl (8.4-10.2); CARBON DIOXIDE 19 mmol/L (21-31); CHLORIDE 111 mmol/L (97-110); CREATININE 0.86 mg/dl (0.61-1.24); GLUCOSE 93 mg/dl (70-220); POTASSIUM 3.8 mmol/L (3.5-5.1); SODIUM 137 mmol/L (135-144); TOTAL PROTEIN 5.1 g/dl (6.1-8.1)
[2018-03-03] MEDS: ATENOLOL 50 MG TAB PO ×2 (09:13→21:00)
[2018-03-03] MEDS: FINASTERIDE 5 MG TAB PO (09:13)
[2018-03-03] MEDS: FOLIC ACID 1 MG TAB PO (09:13)
[2018-03-03] MEDS: AMIODARONE 200 MG TAB PO (09:14)
[2018-03-03] MEDS: URSODIOL 300 MG CAP PO ×2 (09:14→21:10)
[2018-03-03] MEDS: WARFARIN 5 MG TAB PO (16:23)
[2018-03-03] MEDS: TAMSULOSIN (SR) 0.4 MG CAP PO (21:09)
[2018-03-03] MEDS: SOD CHLORIDE 0.9% 100 ML (22:15)
[2018-03-03] MEDS: IOHEXOL 300MG/ML 150 ML BTL (22:16)
[2018-03-04] MEDS: LEVOTHYROXINE 50 MCG TAB PO (07:07)
[2018-03-04] MEDS: PANTOPRAZOLE (EC) 40 MG TAB PO (07:07)
[2018-03-04] MEDS: FINASTERIDE 5 MG TAB PO (08:09)
[2018-03-04] MEDS: URSODIOL 300 MG CAP PO ×2 (08:09→21:12)
[2018-03-04] MEDS: AMIODARONE 200 MG TAB PO (08:10)
[2018-03-04] MEDS: FOLIC ACID 1 MG TAB PO (08:10)
[2018-03-04] MEDS: ATENOLOL 50 MG TAB PO ×2 (08:10→21:12)
[2018-03-04 09:14] LABS: INR 2.37; PROTIME 26.5 Sec (11.9-14.9); PT RATIO 2.1
[2018-03-04] MEDS: WARFARIN 5 MG TAB PO (17:00)
[2018-03-04] MEDS: TAMSULOSIN (SR) 0.4 MG CAP PO (21:12)
[2018-03-05] MEDS: LEVOTHYROXINE 50 MCG TAB PO (06:35)
[2018-03-05] MEDS: PANTOPRAZOLE (EC) 40 MG TAB PO (06:35)
[2018-03-05 07:32] LABS: INR 2.22; PROTIME 25.2 Sec (11.9-14.9)
[2018-03-05] MEDS: AMIODARONE 200 MG TAB PO (08:16)
[2018-03-05] MEDS: FOLIC ACID 1 MG TAB PO (08:16)
[2018-03-05] MEDS: FINASTERIDE 5 MG TAB PO (08:16)
[2018-03-05] MEDS: URSODIOL 300 MG CAP PO ×2 (08:16→20:56)
[2018-03-05] MEDS: ATENOLOL 50 MG TAB PO ×2 (08:16→20:57)
[2018-03-05] MEDS: WARFARIN 5 MG TAB PO (17:02)
[2018-03-05] MEDS: TAMSULOSIN (SR) 0.4 MG CAP PO (20:56)
[2018-03-06] MEDS: PANTOPRAZOLE (EC) 40 MG TAB PO (06:35)
[2018-03-06] MEDS: LEVOTHYROXINE 50 MCG TAB PO (06:35)
[2018-03-06 06:55] LABS: ABNORMAL IP MESSAGE 1; HEMATOCRIT 17.4 % (42.0-52.0); MEAN CORPUSCULAR HGB CONC 35.6 g/dl (32.0-37.0); MEAN PLATELET VOLUME 12.2 fl (7.4-10.4); NUCLEATED RED BLOOD CELLS% 0.8 /100WBC (0.0-0.0); PLATELET COUNT 316 10^3/UL (140-415); POSITIVE DIFF @See below; RED CELL DISTRIBUTION WIDTH 20.9 % (11.5-14.5)
[2018-03-06 06:55] LABS: WHITE BLOOD COUNT 21.1 10^3/ul (4.8-10.8)
[2018-03-06 06:58] LABS: ADD MAN DIFF? YES; HEMOGLOBIN 6.2 g/dl (14.0-18.0)
[2018-03-06 07:09] LABS: INR 1.94; PROTIME 22.6 Sec (11.9-14.9); PT RATIO 1.8
[2018-03-06 07:17] LABS: ALANINE AMINOTRANSFERASE 45 IU/L (13-69); ALBUMIN 2.1 g/dl (3.3-4.9); ALBUMIN/GLOBULIN RATIO 0.65; ALKALINE PHOSPHATASE 146 IU/L (42-121); ANION GAP 10 (8-16); ASPARTATE AMINO TRANSFERASE 119 IU/L (15-46); BILIRUBIN,INDIRECT 2.4 mg/dl (0-1.1); BILIRUBIN,TOTAL 11.7 mg/dl (0.2-1.3); BLOOD UREA NITROGEN 17 mg/dl (7-20); CALCIUM 7.7 mg/dl (8.4-10.2); CARBON DIOXIDE 19 mmol/L (21-31); CHLORIDE 110 mmol/L (97-110); CREATININE 0.72 mg/dl (0.61-1.24); GLUCOSE 74 mg/dl (70-220); POTASSIUM 4.2 mmol/L (3.5-5.1); SODIUM 135 mmol/L (135-144); TOTAL PROTEIN 5.3 g/dl (6.1-8.1)
[2018-03-06] MEDS: ACETAMINOPHEN 325 MG TAB PO (08:00)
[2018-03-06] MEDS: DIPHENHYDRAMINE 50 MG CAP PO (08:00)
[2018-03-06] MEDS: URSODIOL 300 MG CAP PO ×2 (08:20→20:23)
[2018-03-06] MEDS: ATENOLOL 50 MG TAB PO ×2 (08:20→20:24)
[2018-03-06] MEDS: FOLIC ACID 1 MG TAB PO (08:21)
[2018-03-06] MEDS: AMIODARONE 200 MG TAB PO (08:21)
[2018-03-06] MEDS: FINASTERIDE 5 MG TAB PO (08:21)
[2018-03-06 08:58] LABS: ANISOCYTOSIS 3+ (0-0); BAND NEUTROPHILS #M 0.6 10^3/ul (0.0-0.6); BAND NEUTROPHILS % (M) 3 % (0-4); BASOPHIL #M 0.2 10^3/ul (0.0-0.0); BASOPHILS % (M) 1 % (0-2); EOSINOPHILS % (M) 2 % (0-7); ERYTHROBLAST% (NRBC) (M) 2 % (0-0); GIANT THROMBO% (M) 1 % (0-0); HYPOCHROMASIA 2+ (0-0); LYMPHOCYTES % (M) 5 % (15-51); MONOCYTES % (M) 5 % (0-11); MYELOCYTES #M 0.4 10^3/ul (0.0-0.0); MYELOCYTES % (M) 2 % (0-0); PLATELET ESTIMATE NORMAL; POIKILOCYTOSIS 1+ (0-0); POLYCHROMASIA 3+ (0-0); REACTIVE LYMPHOCYTES #M 0.2 10^3/ul (0.0-0.0); REACTIVE LYMPHOCYTES% (M) 1 % (0-0); SEG NEUT #M 17.2 10^3/ul (1.6-7.5); SEGMENTED NEUTROPHILS (M) % 81 % (39-77); SICKLE CELL 2+ (0-0); SMUDGE%M 1 % (0-0); TARGET CELLS 2+ (0-0)
[2018-03-06 14:38] LABS: AHG CROSSMATCH 1 2
[2018-03-06] MEDS: WARFARIN 5 MG TAB PO (17:34)
[2018-03-06] MEDS: TAMSULOSIN (SR) 0.4 MG CAP PO (20:23)
[2018-03-07] MEDS: LEVOTHYROXINE 50 MCG TAB PO (05:40)
[2018-03-07] MEDS: PANTOPRAZOLE (EC) 40 MG TAB PO (05:40)
[2018-03-07 06:40] LABS: ADD MAN DIFF? NO
[2018-03-07 06:43] LABS: ABNORMAL IP MESSAGE 1; BASOPHIL # 0.2 10^3/ul (0.0-0.1); EOSINOPHILS # 0.4 10^3/ul (0.0-0.5); EOSINOPHILS % 2.1 % (0.0-7.0); HEMATOCRIT 23.1 % (42.0-52.0); HEMOGLOBIN 8.3 g/dl (14.0-18.0); LYMPHOCYTES # 1.5 10^3/ul (0.8-2.9); LYMPHOCYTES % 8.3 % (15.0-51.0); MEAN CORPUSCULAR HEMOGLOBIN 30.9 pg (29.0-33.0); MEAN CORPUSCULAR HGB CONC 35.9 g/dl (32.0-37.0); MEAN CORPUSCULAR VOLUME 85.9 fl (82.0-101.0); MEAN PLATELET VOLUME 11.4 fl (7.4-10.4); MONOCYTE # 1.7 10^3/ul (0.3-0.9); MONOCYTES % 9.6 % (0.0-11.0); NEUTROPHILS % 77.7 % (39.0-77.0); NUCLEATED RED BLOOD CELLS # 0.1 10^3/ul (0.0-0.0); NUCLEATED RED BLOOD CELLS% 0.7 /100WBC (0.0-0.0); PLATELET COUNT 301 10^3/UL (140-415); POSITIVE DIFF @See below; RED BLOOD COUNT 2.69 10^6/ul (4.70-6.10); RED CELL DISTRIBUTION WIDTH 18.6 % (11.5-14.5)
[2018-03-07 07:03] LABS: INR 2.28; PROTIME 25.7 Sec (11.9-14.9)
[2018-03-07 07:13] LABS: ALANINE AMINOTRANSFERASE 51 IU/L (13-69); ALBUMIN 2.1 g/dl (3.3-4.9); ALBUMIN/GLOBULIN RATIO 0.61; ALKALINE PHOSPHATASE 135 IU/L (42-121); ANION GAP 12 (8-16); ASPARTATE AMINO TRANSFERASE 127 IU/L (15-46); BILIRUBIN,INDIRECT 2.4 mg/dl (0-1.1); BILIRUBIN,TOTAL 12.6 mg/dl (0.2-1.3); BLOOD UREA NITROGEN 14 mg/dl (7-20); CALCIUM 8.1 mg/dl (8.4-10.2); CARBON DIOXIDE 20 mmol/L (21-31); CHLORIDE 110 mmol/L (97-110); CREATININE 0.78 mg/dl (0.61-1.24); GLUCOSE 76 mg/dl (70-220); POTASSIUM 3.9 mmol/L (3.5-5.1); SODIUM 138 mmol/L (135-144); TOTAL PROTEIN 5.5 g/dl (6.1-8.1)
[2018-03-07] MEDS: FINASTERIDE 5 MG TAB PO (08:14)
[2018-03-07] MEDS: FOLIC ACID 1 MG TAB PO (08:14)
[2018-03-07] MEDS: URSODIOL 300 MG CAP PO ×2 (08:14→20:30)
[2018-03-07] MEDS: ATENOLOL 50 MG TAB PO ×2 (08:14→21:00)
[2018-03-07] MEDS: AMIODARONE 200 MG TAB PO (08:14)
[2018-03-07] MEDS: WARFARIN 5 MG TAB PO (20:35)
[2018-03-07] MEDS: TAMSULOSIN (SR) 0.4 MG CAP PO (20:35)
[2018-03-08] MEDS: PANTOPRAZOLE (EC) 40 MG TAB PO (05:27)
[2018-03-08] MEDS: LEVOTHYROXINE 50 MCG TAB PO (05:27)
[2018-03-08] MEDS: URSODIOL 300 MG CAP PO ×2 (09:15→20:30)
[2018-03-08] MEDS: FINASTERIDE 5 MG TAB PO (09:16)
[2018-03-08] MEDS: FOLIC ACID 1 MG TAB PO (09:16)
[2018-03-08] MEDS: AMIODARONE 200 MG TAB PO (09:16)
[2018-03-08] MEDS: ATENOLOL 50 MG TAB PO ×2 (09:16→20:30)
[2018-03-08] MEDS: WARFARIN 5 MG TAB PO (16:49)
[2018-03-08] MEDS: TAMSULOSIN (SR) 0.4 MG CAP PO (20:30)
[2018-03-09] MEDS: LEVOTHYROXINE 50 MCG TAB PO (06:12)
[2018-03-09] MEDS: PANTOPRAZOLE (EC) 40 MG TAB PO (06:12)
[2018-03-09 06:44] LABS: ADD MAN DIFF? NO
[2018-03-09 06:49] LABS: ABNORMAL IP MESSAGE 1; BASOPHIL # 0.1 10^3/ul (0.0-0.1); BASOPHILS % 0.5 % (0.0-2.0); EOSINOPHILS # 0.5 10^3/ul (0.0-0.5); EOSINOPHILS % 2.2 % (0.0-7.0); HEMATOCRIT 22.8 % (42.0-52.0); HEMOGLOBIN 8.3 g/dl (14.0-18.0); LYMPHOCYTES # 1.3 10^3/ul (0.8-2.9); LYMPHOCYTES % 5.9 % (15.0-51.0); MEAN CORPUSCULAR HEMOGLOBIN 31.6 pg (29.0-33.0); MEAN CORPUSCULAR HGB CONC 36.4 g/dl (32.0-37.0); MEAN CORPUSCULAR VOLUME 86.7 fl (82.0-101.0); MEAN PLATELET VOLUME 11.9 fl (7.4-10.4); MONOCYTE # 1.9 10^3/ul (0.3-0.9); MONOCYTES % 8.8 % (0.0-11.0); NEUTROPHIL # 17.4 10^3/ul (1.6-7.5); NEUTROPHILS % 81.5 % (39.0-77.0); NUCLEATED RED BLOOD CELLS # 0.1 10^3/ul (0.0-0.0); NUCLEATED RED BLOOD CELLS% 0.5 /100WBC (0.0-0.0); PLATELET COUNT 282 10^3/UL (140-415); POSITIVE DIFF @See below; RED BLOOD COUNT 2.63 10^6/ul (4.70-6.10)
[2018-03-09 06:49] LABS: WHITE BLOOD COUNT 21.3 10^3/ul (4.8-10.8)
[2018-03-09 07:08] LABS: INR 2.67; PROTIME 29.2 Sec (11.9-14.9); PT RATIO 2.3
[2018-03-09 07:15] LABS: ALANINE AMINOTRANSFERASE 59 IU/L (13-69); ALBUMIN 2.1 g/dl (3.3-4.9); ALBUMIN/GLOBULIN RATIO 0.61; ALKALINE PHOSPHATASE 152 IU/L (42-121); ANION GAP 9 (8-16); ASPARTATE AMINO TRANSFERASE 134 IU/L (15-46); BILIRUBIN,INDIRECT 2.4 mg/dl (0-1.1); BILIRUBIN,TOTAL 12.2 mg/dl (0.2-1.3); BLOOD UREA NITROGEN 15 mg/dl (7-20); CALCIUM 7.8 mg/dl (8.4-10.2); CARBON DIOXIDE 22 mmol/L (21-31); CHLORIDE 108 mmol/L (97-110); CREATININE 0.97 mg/dl (0.61-1.24); GLUCOSE 85 mg/dl (70-220); POTASSIUM 3.9 mmol/L (3.5-5.1); SODIUM 135 mmol/L (135-144); TOTAL PROTEIN 5.5 g/dl (6.1-8.1)
[2018-03-09] MEDS: FINASTERIDE 5 MG TAB PO (08:42)
[2018-03-09] MEDS: AMIODARONE 200 MG TAB PO (08:43)
[2018-03-09] MEDS: FOLIC ACID 1 MG TAB PO (08:43)
[2018-03-09] MEDS: ATENOLOL 50 MG TAB PO (08:43)
[2018-03-09] MEDS: URSODIOL 300 MG CAP PO (08:43)
[2018-03-11 10:46] LABS: NIL 0.04 IU/mL; QUANTIFERON(R)-TB GOLD NEGATIVE (NEGATIVE); TB-NIL <0.00 IU/mL
== END 2018-03-09 16:51 | disposition home or self-care (01) | DRG 853 ==
LOC: E/R 17:26 → TEL 20:14
PROC: 0FT44ZZ Resection of Gallbladder, Percutaneous Endoscopic Approach (ICD-10-PCS; principal; 2018-02-16 19:30)
PROC: 0FB04ZX Excision of Liver, Percutaneous Endoscopic Approach, Diagnostic (ICD-10-PCS; 2018-02-16 19:30)
PROC: 0FD98ZX Extraction of Common Bile Duct, Via Natural or Artificial Opening Endoscopic, Diagnostic (ICD-10-PCS; 2018-02-16 19:39)
PROC: 0F9C8ZZ Drainage of Ampulla of Vater, Via Natural or Artificial Opening Endoscopic (ICD-10-PCS; 2018-02-16 19:39)
PROC: BF10YZZ Fluoroscopy of Bile Ducts using Other Contrast (ICD-10-PCS; 2018-02-16 19:39)
PROC: CF1C1ZZ Planar Nuclear Medicine Imaging of Hepatobiliary System, All using Technetium 99m (Tc-99m) (ICD-10-PCS; 2018-02-16 19:39)
PROC: 30233N1 Transfusion of Nonautologous Red Blood Cells into Peripheral Vein, Percutaneous Approach (ICD-10-PCS; 2018-02-16 19:39)
PROC: 30233K1 Transfusion of Nonautologous Frozen Plasma into Peripheral Vein, Percutaneous Approach (ICD-10-PCS; 2018-02-16 19:39)
DX: A41.9 Sepsis, unspecified organism (principal); K72.00 Acute and subacute hepatic failure without coma; K83.1 Obstruction of bile duct; R18.8 Other ascites; D68.62 Lupus anticoagulant syndrome; K56.0 Paralytic ileus; K81.0 Acute cholecystitis; K82.A1 Gangrene of gallbladder in cholecystitis; D57.1 Sickle-cell disease without crisis; D64.9 Anemia, unspecified; E03.9 Hypothyroidism, unspecified; E80.6 Other disorders of bilirubin metabolism; E88.09 Other disorders of plasma-protein metabolism, not elsewhere classified; I48.0 Paroxysmal atrial fibrillation; I10 Essential (primary) hypertension; K21.9 Gastro-esophageal reflux disease without esophagitis; K57.90 Diverticulosis of intestine, part unspecified, without perforation or abscess without bleeding; M05.742 Rheumatoid arthritis with rheumatoid factor of left hand without organ or systems involvement; M05.741 Rheumatoid arthritis with rheumatoid factor of right hand without organ or systems involvement; N40.1 Benign prostatic hyperplasia with lower urinary tract symptoms; R16.0 Hepatomegaly, not elsewhere classified; R33.8 Other retention of urine; R60.1 Generalized edema; Z96.643 Presence of artificial hip joint, bilateral; Z96.653 Presence of artificial knee joint, bilateral; Z86.711 Personal history of pulmonary embolism; Z79.01 Long term (current) use of anticoagulants
CPT/HCPCS: 36415; 36430; 71045; 74177; 74181; 74330; 76705; 78226; 78806; 80053; 82150; 83036; 83605; 83615; 83690; 83735; 84100; 84132; 84439; 84443; 85025; 85335; 85610; 85613; 85651; 85730; 86038; 86147; 86255; 86301; 86480; 86644; 86704; 86709; 86803; 86850; 86870; 86900; 86901; 86920; 87040; 87070; 87340; 88104; 88304; 88305; 88307; 88313; 93005; 96374; 96375; 99291-25

== ENCOUNTER 2018-03-26 13:12 | Inpatient (IN) | payer MEDICARE, BC ==
[2018-03-26 14:52] LABS: ADD MAN DIFF? NO
[2018-03-26 15:14] LABS: ALBUMIN 3.3 g/dl (3.3-4.9); ALBUMIN/GLOBULIN RATIO 0.76; ANION GAP 21 (5-13); ASPARTATE AMINO TRANSFERASE 264 IU/L (15-46); BLOOD UREA NITROGEN 65 mg/dl (7-20); CALCIUM 8.1 mg/dl (8.4-10.2); CARBON DIOXIDE 10 mmol/L (21-31); CHLORIDE 102 mmol/L (97-110); CREATININE 4.55 mg/dl (0.61-1.24); Estimated GFR 16 mL/min (>60); GLUCOSE 108 mg/dl (70-220); POTASSIUM 3.7 mmol/L (3.5-5.1); SODIUM 133 mmol/L (135-144); TOTAL PROTEIN 7.6 g/dl (6.1-8.1)
[2018-03-26 15:18] LABS: INR 2.82; PROTIME 30.5 Sec (11.9-14.9); PT RATIO 2.4
[2018-03-26 15:21] LABS: ALANINE AMINOTRANSFERASE 117 IU/L (13-69); ALKALINE PHOSPHATASE 172 IU/L (42-121); LIPASE 1234 U/L (23-300)
[2018-03-26 15:22] LABS: BILIRUBIN,INDIRECT 3.4 mg/dl (0-1.1); BILIRUBIN,TOTAL 36.7 mg/dl (0.2-1.3)
[2018-03-26 15:33] LABS: WHITE BLOOD COUNT 22.5 10^3/ul (4.8-10.8)
[2018-03-26 15:33] LABS: ABNORMAL IP MESSAGE 1; BASOPHIL # 0.1 10^3/ul (0.0-0.1); BASOPHILS % 0.4 % (0.0-2.0); EOSINOPHILS # 0.2 10^3/ul (0.0-0.5); EOSINOPHILS % 1.1 % (0.0-7.0); LYMPHOCYTES % 4.3 % (15.0-51.0); MEAN CORPUSCULAR HEMOGLOBIN 30.8 pg (29.0-33.0); MEAN PLATELET VOLUME 11.7 fl (7.4-10.4); MONOCYTE # 2.6 10^3/ul (0.3-0.9); MONOCYTES % 11.6 % (0.0-11.0); NEUTROPHIL # 18.1 10^3/ul (1.6-7.5); NEUTROPHILS % 80.4 % (39.0-77.0); NUCLEATED RED BLOOD CELLS # 0.2 10^3/ul (0.0-0.0); NUCLEATED RED BLOOD CELLS% 0.9 /100WBC (0.0-0.0); PLATELET COUNT 375 10^3/UL (140-415); POSITIVE DIFF @See below; RED BLOOD COUNT 2.14 10^6/ul (4.70-6.10)
[2018-03-26 15:51] LABS: MEAN CORPUSCULAR HGB CONC 39.1 g/dl (32.0-37.0)
[2018-03-26 15:52] LABS: HEMOGLOBIN 5.7 g/dl (14.0-18.0)
[2018-03-26 15:53] LABS: HEMATOCRIT 17.1 % (42.0-52.0); PATH REVIEW? YES
[2018-03-26] MEDS ORDERED: ACETAMINOPHEN 325 MG TAB PO (16:30)
[2018-03-26] MEDS ORDERED: ONDANSETRON 4 MG INJ IV ×2 (16:30→17:30)
[2018-03-26 16:54] LABS: ADD UMIC YES; UR ASCORBIC ACID NEGATIVE (NEGATIVE); UR BILIRUBIN (Dip) 2+ mg/dL (NEGATIVE); UR BLOOD (Dip) 1+ mg/dL (NEGATIVE); UR CLARITY SLIGHTLY CLOUDY (CLEAR); UR COLOR AMBER (YELLOW); UR GLUCOSE (Dip) NEGATIVE (NEGATIVE); UR KETONES (Dip) NEGATIVE (NEGATIVE); UR LEUKOCYTE ESTERASE (Dip) NEGATIVE Leu/ul (NEGATIVE); UR NITRITE (Dip) NEGATIVE (NEGATIVE); UR RBC 0 /HPF (0-5); UR TOTAL PROTEIN (Dip) NEGATIVE (NEGATIVE); UR UROBILINOGEN (Dip) 2+ mg/dL (NEGATIVE); UR WBC 5 /HPF (0-5)
[2018-03-26] MEDS: PIPER-TAZO 3.375 GM IV (PMX) 100 ML IVPB (17:04)
[2018-03-26] MEDS: SODIUM CHLORIDE 0.9% 1L BAG IV* (17:05)
[2018-03-26 18:04] LABS: HEMOGLOBIN A1C 5.7 % (0-5.9)
[2018-03-26] MEDS: VANCOMYCIN IV PER PHARMACY XX (18:54)
[2018-03-26] MEDS: PHYTONADIONE 10 MG in DEXTROSE 5% 50 ML IVPB (19:26)
[2018-03-26] MEDS: DEXTROSE 5%-0.45% NACL 1,000 ML IV (19:28)
[2018-03-26] MEDS: VANCOMYCIN 1 GM (PMX) 250 ML IVPB (19:41)
[2018-03-26] MEDS: SOD CHLORIDE 0.9% 1,000 ML IV (20:26)
[2018-03-26] MEDS: TAMSULOSIN (SR) 0.4 MG CAP PO (20:26)
[2018-03-26] MEDS: URSODIOL 300 MG CAP PO (20:26)
[2018-03-26] MEDS: ATENOLOL 50 MG TAB PO (20:26)
[2018-03-26 20:54] LABS: LACTIC ACID 2.2 mmol/L (0.5-2.0)
[2018-03-26] MEDS: SOD CHLORIDE 0.9% 250 ML IV* (22:40)
[2018-03-26] MEDS: SOD CHLORIDE 0.9% 250 ML IV (22:40)
[2018-03-26] MEDS: PIPER-TAZO 2.25 GM (PMX) 50 ML IVPB (22:41)
[2018-03-27 04:58] LABS: ADD MAN DIFF? NO
[2018-03-27 05:03] LABS: RETICULOCYTE RBC 2.07
[2018-03-27 05:03] LABS: RETICULOCYTE COUNT # 0.076 X10^6 (0.020-0.110); RETICULOCYTE COUNT % 3.7 % (0.5-1.5)
[2018-03-27 05:22] LABS: AMMONIA 54 umol/l (9-30); LIPASE 1004 U/L (23-300)
[2018-03-27 05:24] LABS: ALANINE AMINOTRANSFERASE 103 IU/L (13-69); ALBUMIN 2.7 g/dl (3.3-4.9); ALKALINE PHOSPHATASE 138 IU/L (42-121); ANION GAP 15 (5-13); ASPARTATE AMINO TRANSFERASE 214 IU/L (15-46); BLOOD UREA NITROGEN 66 mg/dl (7-20); CALCIUM 7.5 mg/dl (8.4-10.2); CARBON DIOXIDE 12 mmol/L (21-31); CHLORIDE 108 mmol/L (97-110); CREATININE 4.24 mg/dl (0.61-1.24); Estimated GFR 17 mL/min (>60); GLUCOSE 81 mg/dl (70-220); LACTATE DEHYDROGENASE 957 IU/L (313-618); MAGNESIUM 2.3 mg/dl (1.7-2.5); PHOSPHORUS 7.3 mg/dl (2.5-4.9); POTASSIUM 3.1 mmol/L (3.5-5.1); SODIUM 135 mmol/L (135-144); TOTAL PROTEIN 6.7 g/dl (6.1-8.1)
[2018-03-27 05:55] LABS: BILIRUBIN,TOTAL 31.7 mg/dl (0.2-1.3)
[2018-03-27 05:56] LABS: BILIRUBIN,INDIRECT 3.3 mg/dl (0-1.1)
[2018-03-27] MEDS: PIPER-TAZO 2.25 GM (PMX) 50 ML IVPB ×3 (06:09→21:36)
[2018-03-27] MEDS: LEVOTHYROXINE 50 MCG TAB PO (06:09)
[2018-03-27] MEDS: PANTOPRAZOLE 40 MG INJ IV (06:09)
[2018-03-27 06:19] LABS: WHITE BLOOD COUNT 25.7 10^3/ul (4.8-10.8)
[2018-03-27 06:19] LABS: ABNORMAL IP MESSAGE 1; BASOPHIL # 0.2 10^3/ul (0.0-0.1); BASOPHILS % 0.6 % (0.0-2.0); EOSINOPHILS # 0.7 10^3/ul (0.0-0.5); EOSINOPHILS % 2.6 % (0.0-7.0); HEMATOCRIT 16.5 % (42.0-52.0); LYMPHOCYTES # 0.6 10^3/ul (0.8-2.9); LYMPHOCYTES % 2.4 % (15.0-51.0); MEAN CORPUSCULAR HEMOGLOBIN 31.4 pg (29.0-33.0); MEAN CORPUSCULAR VOLUME 79.7 fl (82.0-101.0); MEAN PLATELET VOLUME 11.3 fl (7.4-10.4); MONOCYTE # 2.7 10^3/ul (0.3-0.9); MONOCYTES % 10.6 % (0.0-11.0); NEUTROPHIL # 20.6 10^3/ul (1.6-7.5); NEUTROPHILS % 80.2 % (39.0-77.0); NUCLEATED RED BLOOD CELLS # 0.2 10^3/ul (0.0-0.0); NUCLEATED RED BLOOD CELLS% 0.6 /100WBC (0.0-0.0); PLATELET COUNT 287 10^3/UL (140-415); POSITIVE DIFF @See below; RED BLOOD COUNT 2.07 10^6/ul (4.70-6.10)
[2018-03-27 06:25] LABS: FREE THYROXINE INDEX (Calc) 3.49 ug/ml (0.65-3.89); T3 UPTAKE 49.9 % (23.5-40.5)
[2018-03-27 06:28] LABS: HEMOGLOBIN 6.5 g/dl (14.0-18.0); MEAN CORPUSCULAR HGB CONC 39.4 g/dl (32.0-37.0)
[2018-03-27 06:39] LABS: THYROID STIMULATING HORMONE 0.223 MIU/L (0.465-4.680)
[2018-03-27 08:14] LABS: IMMEDIATE SPIN CROSSMATCH 1
[2018-03-27] MEDS: AMIODARONE 200 MG TAB PO (08:33)
[2018-03-27] MEDS: POTASSIUM CHLORIDE (SR) 20 MEQ TAB PO (08:33)
[2018-03-27] MEDS: FINASTERIDE 5 MG TAB PO (08:33)
[2018-03-27] MEDS: FOLIC ACID 1 MG TAB PO (08:33)
[2018-03-27] MEDS: URSODIOL 300 MG CAP PO ×2 (08:34→21:36)
[2018-03-27 08:40] LABS: AADO2 Arterial 33.9 mmHg (7.0-24.0); Allen Test ACCEPTAB; Arterial Base Excess -9.4 mmol/L (-3.0-3); Arterial Blood Gas Oxygen Sat 98.4 mmHG (95.0-98.0); Arterial COHb 7.4 % (0.0-3.0); Arterial Fraction of Oxyhgb 90.9 % (93.0-99.0); Arterial HCO3 14.4 mmol/L (22.0-26.0); Arterial MetHb 0.2 % (0.0-1.5); Arterial Total Hemglobin 3.6 g/dl (12.0-18.0); Arterial pCO2 21.4 mmhg (35-45); MODE ROOM AIR; Site Right Radial
[2018-03-27] MEDS: ATENOLOL 50 MG TAB PO (09:00)
[2018-03-27 10:24] LABS: ADD UMIC YES; UR ASCORBIC ACID NEGATIVE (NEGATIVE); UR BILIRUBIN (Dip) 2+ mg/dL (NEGATIVE); UR BLOOD (Dip) 1+ mg/dL (NEGATIVE); UR CLARITY SLIGHTLY CLOUDY (CLEAR); UR COLOR AMBER (YELLOW); UR GLUCOSE (Dip) NEGATIVE (NEGATIVE); UR KETONES (Dip) NEGATIVE (NEGATIVE); UR LEUKOCYTE ESTERASE (Dip) NEGATIVE Leu/ul (NEGATIVE); UR NITRITE (Dip) NEGATIVE (NEGATIVE); UR RBC 0 /HPF (0-5); UR TOTAL PROTEIN (Dip) NEGATIVE (NEGATIVE); UR UROBILINOGEN (Dip) 2+ mg/dL (NEGATIVE); UR WBC 1 /HPF (0-5)
[2018-03-27 10:37] LABS: SODIUM,URINE RANDOM 47 mmol/L (30-90)
[2018-03-27 10:37] LABS: CREATININE,URINE RANDOM 56.49 mg/dl (20-370)
[2018-03-27] MEDS: SOD CHLORIDE 0.9% 1,000 ML IV ×2 (12:46→23:10)
[2018-03-27] MEDS: TAMSULOSIN (SR) 0.4 MG CAP PO (21:36)
[2018-03-28] MEDS: SOD CHLORIDE 0.9% 1,000 ML IV ×2 (01:15→14:00)
[2018-03-28 05:08] LABS: ADD MAN DIFF? NO
[2018-03-28 05:14] LABS: ABNORMAL IP MESSAGE 1; BASOPHIL # 0.1 10^3/ul (0.0-0.1); BASOPHILS % 0.6 % (0.0-2.0); EOSINOPHILS # 0.2 10^3/ul (0.0-0.5); EOSINOPHILS % 0.7 % (0.0-7.0); HEMATOCRIT 18.2 % (42.0-52.0); LYMPHOCYTES # 0.8 10^3/ul (0.8-2.9); LYMPHOCYTES % 3.3 % (15.0-51.0); MEAN CORPUSCULAR HEMOGLOBIN 31.1 pg (29.0-33.0); MEAN PLATELET VOLUME 11.6 fl (7.4-10.4); MONOCYTE # 2.6 10^3/ul (0.3-0.9); MONOCYTES % 10.9 % (0.0-11.0); NEUTROPHIL # 19.5 10^3/ul (1.6-7.5); NEUTROPHILS % 82.5 % (39.0-77.0); NUCLEATED RED BLOOD CELLS # 0.2 10^3/ul (0.0-0.0); NUCLEATED RED BLOOD CELLS% 0.9 /100WBC (0.0-0.0); PLATELET COUNT 247 10^3/UL (140-415); POSITIVE DIFF @See below; RED BLOOD COUNT 2.22 10^6/ul (4.70-6.10); RED CELL DISTRIBUTION WIDTH 18.3 % (11.5-14.5)
[2018-03-28 05:14] LABS: WHITE BLOOD COUNT 23.6 10^3/ul (4.8-10.8)
[2018-03-28] MEDS: PIPER-TAZO 2.25 GM (PMX) 50 ML IVPB ×3 (05:27→22:03)
[2018-03-28] MEDS: PANTOPRAZOLE 40 MG INJ IV (05:27)
[2018-03-28 05:33] LABS: INR 2.47; PROTIME 27.4 Sec (11.9-14.9); PT RATIO 2.1
[2018-03-28 05:34] LABS: AMMONIA 79 umol/l (9-30)
[2018-03-28 05:35] LABS: MEAN CORPUSCULAR HGB CONC 37.9 g/dl (32.0-37.0)
[2018-03-28 05:37] LABS: HEMOGLOBIN 6.9 g/dl (14.0-18.0)
[2018-03-28 05:42] LABS: ANION GAP 18 (5-13); BLOOD UREA NITROGEN 77 mg/dl (7-20); CALCIUM 7.4 mg/dl (8.4-10.2); CARBON DIOXIDE 10 mmol/L (21-31); CHLORIDE 108 mmol/L (97-110); CREATININE 4.58 mg/dl (0.61-1.24); Estimated GFR 16 mL/min (>60); GLUCOSE 90 mg/dl (70-220); MAGNESIUM 2.2 mg/dl (1.7-2.5); PHOSPHORUS 7.2 mg/dl (2.5-4.9); POTASSIUM 3.4 mmol/L (3.5-5.1); SODIUM 136 mmol/L (135-144)
[2018-03-28 05:48] LABS: VANCOMYCIN,RANDOM 9.6 ug/ml
[2018-03-28 05:49] LABS: PARTIAL THROMBOPLASTIN TIME 99.1 Sec (23.0-35.0)
[2018-03-28 06:05] LABS: ALANINE AMINOTRANSFERASE 94 IU/L (13-69); ALBUMIN 2.6 g/dl (3.3-4.9); ALKALINE PHOSPHATASE 105 IU/L (42-121); ASPARTATE AMINO TRANSFERASE 181 IU/L (15-46); TOTAL PROTEIN 5.8 g/dl (6.1-8.1)
[2018-03-28 06:05] LABS: LIPASE 1125 U/L (23-300)
[2018-03-28 06:14] LABS: BILIRUBIN,INDIRECT 3.4 mg/dl (0-1.1); BILIRUBIN,TOTAL 34.7 mg/dl (0.2-1.3)
[2018-03-28] MEDS: LEVOTHYROXINE 50 MCG TAB PO ×2 (06:55→10:18)
[2018-03-28] MEDS: AMIODARONE 200 MG TAB PO (09:00)
[2018-03-28 09:34] LABS: AHG CROSSMATCH 1 3
[2018-03-28] MEDS: POTASSIUM CHLORIDE 100 ML IVPB (09:37)
[2018-03-28] MEDS: FINASTERIDE 5 MG TAB PO (10:18)
[2018-03-28] MEDS: FOLIC ACID 1 MG TAB PO (10:19)
[2018-03-28] MEDS: URSODIOL 300 MG CAP PO ×2 (10:19→20:22)
[2018-03-28 15:21] LABS: CREATININE, RANDOM URINE 57 mg/dL (20-320); MICROALBUMIN 2.7 mg/dL; MICROALBUMIN/CREATININE RATIO 47 (<30)
[2018-03-28] MEDS ORDERED: ARTIFICIAL TEARS 15 ML OPH BOTH EYES (16:30)
[2018-03-28] MEDS: VANCOMYCIN 1 GM 250 ML IVPB (16:53)
[2018-03-28] MEDS: TAMSULOSIN (SR) 0.4 MG CAP PO (20:22)
[2018-03-29 05:09] LABS: ADD MAN DIFF? NO
[2018-03-29 05:14] LABS: ABNORMAL IP MESSAGE 1; BASOPHIL # 0.1 10^3/ul (0.0-0.1); BASOPHILS % 0.6 % (0.0-2.0); EOSINOPHILS # 0.2 10^3/ul (0.0-0.5); EOSINOPHILS % 0.8 % (0.0-7.0); HEMATOCRIT 16.6 % (42.0-52.0); LYMPHOCYTES # 0.8 10^3/ul (0.8-2.9); LYMPHOCYTES % 3.9 % (15.0-51.0); MEAN CORPUSCULAR HEMOGLOBIN 31.2 pg (29.0-33.0); MONOCYTES % 9.7 % (0.0-11.0); NEUTROPHIL # 16.5 10^3/ul (1.6-7.5); NEUTROPHILS % 82.6 % (39.0-77.0); NUCLEATED RED BLOOD CELLS # 0.3 10^3/ul (0.0-0.0); NUCLEATED RED BLOOD CELLS% 1.3 /100WBC (0.0-0.0); PLATELET COUNT 192 10^3/UL (140-415); POSITIVE DIFF @See below; RED BLOOD COUNT 2.05 10^6/ul (4.70-6.10); RED CELL DISTRIBUTION WIDTH 18.1 % (11.5-14.5)
[2018-03-29 05:27] LABS: MEAN CORPUSCULAR HGB CONC 38.6 g/dl (32.0-37.0)
[2018-03-29] MEDS: PIPER-TAZO 2.25 GM (PMX) 50 ML IVPB ×3 (05:28→21:50)
[2018-03-29 05:29] LABS: HEMOGLOBIN 6.4 g/dl (14.0-18.0)
[2018-03-29] MEDS: PANTOPRAZOLE 40 MG INJ IV (05:30)
[2018-03-29] MEDS: SOD CHLORIDE 0.9% 1,000 ML IV ×2 (05:30→21:50)
[2018-03-29 05:42] LABS: ANION GAP 16 (5-13); BLOOD UREA NITROGEN 86 mg/dl (7-20); CALCIUM 7.2 mg/dl (8.4-10.2); CARBON DIOXIDE 10 mmol/L (21-31); CHLORIDE 110 mmol/L (97-110); CREATININE 5.56 mg/dl (0.61-1.24); Estimated GFR 12 mL/min (>60); GLUCOSE 87 mg/dl (70-220); MAGNESIUM 2.2 mg/dl (1.7-2.5); PHOSPHORUS 7.5 mg/dl (2.5-4.9); POTASSIUM 3.5 mmol/L (3.5-5.1); SODIUM 136 mmol/L (135-144)
[2018-03-29] MEDS: AMIODARONE 200 MG TAB PO (09:00)
[2018-03-29] MEDS: LEVOTHYROXINE 50 MCG TAB PO (09:55)
[2018-03-29] MEDS: URSODIOL 300 MG CAP PO ×2 (09:55→20:49)
[2018-03-29] MEDS: FINASTERIDE 5 MG TAB PO (09:55)
[2018-03-29] MEDS: FOLIC ACID 1 MG TAB PO (09:55)
[2018-03-29] MEDS: SEVELAMER CARBONATE 800 MG TABLET PO ×2 (13:09→18:47)
[2018-03-29 13:12] LABS: HAPTOGLOBIN <8 mg/dL (43-212)
[2018-03-29] MEDS: FUROSEMIDE 40 MG INJ IV (14:21)
[2018-03-29] MEDS: TAMSULOSIN (SR) 0.4 MG CAP PO (20:49)
[2018-03-30 05:11] LABS: ADD MAN DIFF? NO
[2018-03-30] MEDS: PIPER-TAZO 2.25 GM (PMX) 50 ML IVPB ×3 (05:13→21:54)
[2018-03-30] MEDS: PANTOPRAZOLE 40 MG INJ IV (05:13)
[2018-03-30 05:20] LABS: ABNORMAL IP MESSAGE 1; BASOPHIL # 0.1 10^3/ul (0.0-0.1); BASOPHILS % 0.4 % (0.0-2.0); EOSINOPHILS # 0.1 10^3/ul (0.0-0.5); EOSINOPHILS % 0.5 % (0.0-7.0); HEMATOCRIT 17.7 % (42.0-52.0); LYMPHOCYTES # 0.7 10^3/ul (0.8-2.9); LYMPHOCYTES % 3.9 % (15.0-51.0); MEAN CORPUSCULAR HEMOGLOBIN 30.7 pg (29.0-33.0); MEAN CORPUSCULAR HGB CONC 37.3 g/dl (32.0-37.0); MEAN CORPUSCULAR VOLUME 82.3 fl (82.0-101.0); MEAN PLATELET VOLUME 11.8 fl (7.4-10.4); MONOCYTE # 2.3 10^3/ul (0.3-0.9); NEUTROPHIL # 15.2 10^3/ul (1.6-7.5); NEUTROPHILS % 80.7 % (39.0-77.0); NUCLEATED RED BLOOD CELLS # 0.5 10^3/ul (0.0-0.0); NUCLEATED RED BLOOD CELLS% 2.4 /100WBC (0.0-0.0); PLATELET COUNT 164 10^3/UL (140-415); POSITIVE DIFF @See below; RED BLOOD COUNT 2.15 10^6/ul (4.70-6.10); RED CELL DISTRIBUTION WIDTH 17.7 % (11.5-14.5)
[2018-03-30 05:20] LABS: WHITE BLOOD COUNT 18.9 10^3/ul (4.8-10.8)
[2018-03-30 05:37] LABS: AMYLASE 373 U/L (11-123)
[2018-03-30 05:39] LABS: INR 3.73; PROTIME 38.1 Sec (11.9-14.9)
[2018-03-30 05:44] LABS: ANION GAP 21 (5-13); BLOOD UREA NITROGEN 98 mg/dl (7-20); CALCIUM 6.8 mg/dl (8.4-10.2); CHLORIDE 109 mmol/L (97-110); CREATININE 6.45 mg/dl (0.61-1.24); Estimated GFR 11 mL/min (>60); GLUCOSE 82 mg/dl (70-220); MAGNESIUM 2.1 mg/dl (1.7-2.5); PHOSPHORUS 8.1 mg/dl (2.5-4.9); POTASSIUM 3.5 mmol/L (3.5-5.1); SODIUM 137 mmol/L (135-144)
[2018-03-30 05:48] LABS: LIPASE 2166 U/L (23-300)
[2018-03-30 05:56] LABS: CARBON DIOXIDE 7 mmol/L (21-31)
[2018-03-30 06:00] LABS: HEMOGLOBIN 6.6 g/dl (14.0-18.0)
[2018-03-30 06:07] LABS: ALANINE AMINOTRANSFERASE 64 IU/L (13-69); ALBUMIN 2.7 g/dl (3.3-4.9); ALKALINE PHOSPHATASE 88 IU/L (42-121); ASPARTATE AMINO TRANSFERASE 108 IU/L (15-46); TOTAL PROTEIN 6.2 g/dl (6.1-8.1)
[2018-03-30 06:31] LABS: BILIRUBIN,INDIRECT 3.2 mg/dl (0-1.1); BILIRUBIN,TOTAL 38.3 mg/dl (0.2-1.3)
[2018-03-30] MEDS: AMIODARONE 200 MG TAB PO (08:09)
[2018-03-30 08:14] LABS: AADO2 Arterial 20.3 mmHg (7.0-24.0); Allen Test ACCEPTAB; Arterial Base Excess -12.6 mmol/L (-3.0-3); Arterial Blood Gas Oxygen Sat 97.8 mmHG (95.0-98.0); Arterial COHb 3.1 % (0.0-3.0); Arterial Fraction of Oxyhgb 94.7 % (93.0-99.0); Arterial HCO3 11.7 mmol/L (22.0-26.0); Arterial MetHb 0.1 % (0.0-1.5); Arterial Total Hemglobin 6.7 g/dl (12.0-18.0); Arterial pCO2 21.4 mmhg (35-45); MODE ROOM AIR; Site Right Radial
[2018-03-30] MEDS: FINASTERIDE 5 MG TAB PO (10:06)
[2018-03-30] MEDS: FOLIC ACID 1 MG TAB PO (10:06)
[2018-03-30] MEDS: SEVELAMER CARBONATE 800 MG TABLET PO ×3 (10:06→17:01)
[2018-03-30] MEDS: LEVOTHYROXINE 50 MCG TAB PO (10:06)
[2018-03-30] MEDS: URSODIOL 300 MG CAP PO ×2 (10:07→20:58)
[2018-03-30 10:34] LABS: IMMEDIATE SPIN CROSSMATCH 1
[2018-03-30] MEDS: PHYTONADIONE 10 MG in DEXTROSE 5% 50 ML IVPB (13:42)
[2018-03-30 17:40] LABS: INR 3.16; PROTIME 33.4 Sec (11.9-14.9); PT RATIO 2.6
[2018-03-30 17:53] LABS: PARTIAL THROMBOPLASTIN TIME 161.4 Sec (23.0-35.0)
[2018-03-30] MEDS: TAMSULOSIN (SR) 0.4 MG CAP PO (20:58)
[2018-03-30] MEDS: SOD CHLORIDE 0.9% 1,000 ML IV (21:09)
[2018-03-31 05:43] LABS: ADD MAN DIFF? NO
[2018-03-31] MEDS: PANTOPRAZOLE 40 MG INJ IV (05:52)
[2018-03-31] MEDS: PIPER-TAZO 2.25 GM (PMX) 50 ML IVPB ×3 (05:52→21:43)
[2018-03-31 05:56] LABS: ABNORMAL IP MESSAGE 1; BASOPHIL # 0.1 10^3/ul (0.0-0.1); BASOPHILS % 0.4 % (0.0-2.0); EOSINOPHILS # 0.1 10^3/ul (0.0-0.5); EOSINOPHILS % 0.4 % (0.0-7.0); HEMATOCRIT 15.6 % (42.0-52.0); LYMPHOCYTES # 0.7 10^3/ul (0.8-2.9); LYMPHOCYTES % 3.7 % (15.0-51.0); MEAN CORPUSCULAR HGB CONC 37.2 g/dl (32.0-37.0); MEAN CORPUSCULAR VOLUME 83.4 fl (82.0-101.0); MEAN PLATELET VOLUME 12.4 fl (7.4-10.4); MONOCYTE # 2.4 10^3/ul (0.3-0.9); MONOCYTES % 12.5 % (0.0-11.0); NEUTROPHIL # 15.3 10^3/ul (1.6-7.5); NEUTROPHILS % 80.3 % (39.0-77.0); NUCLEATED RED BLOOD CELLS # 0.8 10^3/ul (0.0-0.0); NUCLEATED RED BLOOD CELLS% 3.9 /100WBC (0.0-0.0); PLATELET COUNT 115 10^3/UL (140-415); POSITIVE DIFF @See below; RED BLOOD COUNT 1.87 10^6/ul (4.70-6.10); RED CELL DISTRIBUTION WIDTH 17.3 % (11.5-14.5)
[2018-03-31 06:10] LABS: HEMOGLOBIN 5.8 g/dl (14.0-18.0)
[2018-03-31 06:18] LABS: VANCOMYCIN,RANDOM 7.1 ug/ml
[2018-03-31 06:19] LABS: ANION GAP 20 (5-13); BLOOD UREA NITROGEN 111 mg/dl (7-20); CALCIUM 6.6 mg/dl (8.4-10.2); CHLORIDE 110 mmol/L (97-110); CREATININE 7.29 mg/dl (0.61-1.24); Estimated GFR 9 mL/min (>60); GLUCOSE 85 mg/dl (70-220); MAGNESIUM 2.2 mg/dl (1.7-2.5); PHOSPHORUS 8.5 mg/dl (2.5-4.9); POTASSIUM 3.8 mmol/L (3.5-5.1); SODIUM 138 mmol/L (135-144)
[2018-03-31 06:31] LABS: CARBON DIOXIDE 8 mmol/L (21-31)
[2018-03-31 07:55] LABS: HEPATITIS B SURFACE ANTIGEN NEGATIVE (NEGATIVE)
[2018-03-31 08:12] LABS: HEPATITIS B SURFACE ANTIBODY POSITIVE (NEGATIVE)
[2018-03-31] MEDS: AMIODARONE 200 MG TAB PO (09:00)
[2018-03-31] MEDS ORDERED: ALBUMIN HUMAN 25% 50 ML IV (09:00)
[2018-03-31] MEDS: SEVELAMER CARBONATE 800 MG TABLET PO ×3 (09:09→19:56)
[2018-03-31] MEDS: URSODIOL 300 MG CAP PO ×2 (09:10→20:51)
[2018-03-31] MEDS: FINASTERIDE 5 MG TAB PO (09:10)
[2018-03-31] MEDS: FOLIC ACID 1 MG TAB PO (09:10)
[2018-03-31] MEDS: NORepinephrine 8MG/250 ML (PMX 250 ML IV (09:29)
[2018-03-31] MEDS: LIDOCAINE 1% (MPF) 5 ML VIAL SC (09:30)
[2018-03-31] MEDS ORDERED: ALBUMIN HUMAN 25% 100 ML IV (10:00)
[2018-03-31] MEDS: HEPARIN 1000 UNITS/ML 10 ML INJ CATHETER (12:40)
[2018-03-31] MEDS: VANCOMYCIN 1 GM 250 ML IVPB (13:15)
[2018-03-31] MEDS: PHYTONADIONE 10 MG/ML INJ SC (16:05)
[2018-03-31 16:18] LABS: HEMATOCRIT 15.9 % (42.0-52.0)
[2018-03-31 16:28] LABS: HEMOGLOBIN 5.8 g/dl (14.0-18.0)
[2018-03-31] MEDS: BISACODYL (EC) 5 MG TAB PO (17:30)
[2018-03-31] MEDS: MAGNESIUM CITRATE 300 ML BTL PO (19:56)
[2018-03-31] MEDS: TAMSULOSIN (SR) 0.4 MG CAP PO (20:51)
[2018-03-31] MEDS: POLYETHYLENE GLYCOL 3350 119 GM POWDER PO (20:56)
[2018-04-01] MEDS: PANTOPRAZOLE IV 80 MG in SOD CHLORIDE 0.9% 100 ML IV ×3 (01:22→21:00)
[2018-04-01] MEDS: SOD CHLORIDE 0.9% 1,000 ML IV ×2 (01:29→20:00)
[2018-04-01 03:32] LABS: ADD MAN DIFF? NO
[2018-04-01 03:58] LABS: ABNORMAL IP MESSAGE 1; BASOPHILS % 0.2 % (0.0-2.0); EOSINOPHILS % 0.1 % (0.0-7.0); HEMATOCRIT 15.7 % (42.0-52.0); LYMPHOCYTES # 0.5 10^3/ul (0.8-2.9); LYMPHOCYTES % 2.6 % (15.0-51.0); MEAN CORPUSCULAR HEMOGLOBIN 30.2 pg (29.0-33.0); MEAN CORPUSCULAR HGB CONC 36.3 g/dl (32.0-37.0); MEAN CORPUSCULAR VOLUME 83.1 fl (82.0-101.0); MEAN PLATELET VOLUME 12.2 fl (7.4-10.4); MONOCYTE # 2.7 10^3/ul (0.3-0.9); MONOCYTES % 12.9 % (0.0-11.0); NEUTROPHIL # 16.9 10^3/ul (1.6-7.5); NUCLEATED RED BLOOD CELLS # 1.3 10^3/ul (0.0-0.0); NUCLEATED RED BLOOD CELLS% 6.2 /100WBC (0.0-0.0); PLATELET COUNT 81 10^3/UL (140-415); POSITIVE DIFF @See below; RED BLOOD COUNT 1.89 10^6/ul (4.70-6.10)
[2018-04-01 03:58] LABS: WHITE BLOOD COUNT 20.9 10^3/ul (4.8-10.8)
[2018-04-01 04:02] LABS: HEMOGLOBIN 5.7 g/dl (14.0-18.0)
[2018-04-01 04:54] LABS: ADD MAN DIFF? NO
[2018-04-01 04:58] LABS: ABNORMAL IP MESSAGE 1; BASOPHILS % 0.2 % (0.0-2.0); EOSINOPHILS % 0.1 % (0.0-7.0); HEMATOCRIT 15.3 % (42.0-52.0); LYMPHOCYTES # 0.8 10^3/ul (0.8-2.9); LYMPHOCYTES % 3.6 % (15.0-51.0); MEAN CORPUSCULAR HEMOGLOBIN 29.1 pg (29.0-33.0); MEAN CORPUSCULAR HGB CONC 35.9 g/dl (32.0-37.0); MEAN PLATELET VOLUME 11.7 fl (7.4-10.4); MONOCYTE # 2.8 10^3/ul (0.3-0.9); MONOCYTES % 12.8 % (0.0-11.0); NEUTROPHIL # 17.5 10^3/ul (1.6-7.5); NEUTROPHILS % 80.3 % (39.0-77.0); NUCLEATED RED BLOOD CELLS # 1.4 10^3/ul (0.0-0.0); NUCLEATED RED BLOOD CELLS% 6.6 /100WBC (0.0-0.0); PLATELET COUNT 81 10^3/UL (140-415); POSITIVE DIFF @See below; RED BLOOD COUNT 1.89 10^6/ul (4.70-6.10); RED CELL DISTRIBUTION WIDTH 16.8 % (11.5-14.5)
[2018-04-01 04:58] LABS: WHITE BLOOD COUNT 21.8 10^3/ul (4.8-10.8)
[2018-04-01 05:18] LABS: HEMOGLOBIN 5.5 g/dl (14.0-18.0); INR 2.51; PROTIME 27.8 Sec (11.9-14.9); PT RATIO 2.2
[2018-04-01 05:24] LABS: ANION GAP 18 (5-13); BLOOD UREA NITROGEN 86 mg/dl (7-20); CALCIUM 6.8 mg/dl (8.4-10.2); CARBON DIOXIDE 13 mmol/L (21-31); CHLORIDE 111 mmol/L (97-110); Estimated GFR 12 mL/min (>60); GLUCOSE 100 mg/dl (70-220); MAGNESIUM 2.8 mg/dl (1.7-2.5); PHOSPHORUS 6.6 mg/dl (2.5-4.9); POTASSIUM 3.2 mmol/L (3.5-5.1); SODIUM 142 mmol/L (135-144)
[2018-04-01] MEDS: PIPER-TAZO 2.25 GM (PMX) 50 ML IVPB ×3 (05:45→22:00)
[2018-04-01] MEDS: POLYETHYLENE GLYCOL 3350 119 GM POWDER PO (05:47)
[2018-04-01] MEDS: LEVOTHYROXINE 50 MCG TAB PO (07:00)
[2018-04-01] MEDS: SEVELAMER CARBONATE 800 MG TABLET PO ×3 (07:04→17:35)
[2018-04-01] MEDS: ALBUMIN HUMAN 25% 100 ML IV (08:33)
[2018-04-01] MEDS: BISACODYL (EC) 5 MG TAB PO (08:39)
[2018-04-01] MEDS: FINASTERIDE 5 MG TAB PO (10:17)
[2018-04-01] MEDS: FOLIC ACID 1 MG TAB PO (10:17)
[2018-04-01] MEDS: AMIODARONE 200 MG TAB PO (10:18)
[2018-04-01] MEDS: URSODIOL 300 MG CAP PO ×2 (10:18→21:00)
[2018-04-01] MEDS: PHYTONADIONE 10 MG/ML INJ SC (10:19)
[2018-04-01] MEDS: SOD CHLORIDE 0.9% IVPB (10:48)
[2018-04-01] MEDS: DESMOPRESSIN IVPB (10:48)
[2018-04-01] MEDS: POTASSIUM CHLORIDE 100 ML IVPB ×2 (11:24→14:51)
[2018-04-01 12:47] LABS: AHG CROSSMATCH 1 7
[2018-04-01 12:56] LABS: HEMATOCRIT 17.4 % (42.0-52.0)
[2018-04-01 13:01] LABS: HEMOGLOBIN 6.4 g/dl (14.0-18.0)
[2018-04-01 17:12] LABS: HEMATOCRIT 19.8 % (42.0-52.0); HEMOGLOBIN 7.2 g/dl (14.0-18.0)
[2018-04-01 17:32] LABS: INR 1.83; PROTIME 21.6 Sec (11.9-14.9); PT RATIO 1.7
[2018-04-01] MEDS ORDERED: PROPOFOL 60 ML (17:40)
[2018-04-01] MEDS ORDERED: LIDOCAINE 2% (SDV) 5 ML INJ (17:40)
[2018-04-01] MEDS ORDERED: EPHEDrine SULFATE 50 MG/5 ML SYG (18:39)
[2018-04-01] MEDS ORDERED: PHENYLephrine (100 MCG/ML) 5ML SYG (18:39)
[2018-04-01] MEDS ORDERED: SUCCINYLCHOLINE CHLORIDE 100 MG/5 ML SYG IV (18:39)
[2018-04-01] MEDS: TAMSULOSIN (SR) 0.4 MG CAP PO (21:00)
[2018-04-01] MEDS: HEPARIN 1000 UNITS/ML 10 ML INJ CATHETER (23:45)
[2018-04-02 05:16] LABS: ABNORMAL IP MESSAGE 1; HEMATOCRIT 19.5 % (42.0-52.0); HEMOGLOBIN 7.1 g/dl (14.0-18.0); MEAN CORPUSCULAR HEMOGLOBIN 30.1 pg (29.0-33.0); MEAN CORPUSCULAR HGB CONC 36.4 g/dl (32.0-37.0); MEAN CORPUSCULAR VOLUME 82.6 fl (82.0-101.0); MEAN PLATELET VOLUME 12.1 fl (7.4-10.4); PLATELET COUNT 70 10^3/UL (140-415); POSITIVE DIFF @See below; RED BLOOD COUNT 2.36 10^6/ul (4.70-6.10); RED CELL DISTRIBUTION WIDTH 16.1 % (11.5-14.5)
[2018-04-02 05:16] LABS: WHITE BLOOD COUNT 22.8 10^3/ul (4.8-10.8)
[2018-04-02 05:33] LABS: ADD MAN DIFF? YES
[2018-04-02 05:34] LABS: INR 1.77; PT RATIO 1.6
[2018-04-02 05:39] LABS: VANCOMYCIN,RANDOM 11.9 ug/ml
[2018-04-02] MEDS: PIPER-TAZO 2.25 GM (PMX) 50 ML IVPB ×3 (05:41→21:35)
[2018-04-02 05:47] LABS: ANION GAP 16 (5-13); BLOOD UREA NITROGEN 55 mg/dl (7-20); CALCIUM 7.3 mg/dl (8.4-10.2); CARBON DIOXIDE 21 mmol/L (21-31); CHLORIDE 105 mmol/L (97-110); CREATININE 4.02 mg/dl (0.61-1.24); Estimated GFR 18 mL/min (>60); GLUCOSE 101 mg/dl (70-220); MAGNESIUM 2.4 mg/dl (1.7-2.5); PHOSPHORUS 3.6 mg/dl (2.5-4.9); POTASSIUM 3.3 mmol/L (3.5-5.1); SODIUM 142 mmol/L (135-144)
[2018-04-02] MEDS: LEVOTHYROXINE 50 MCG TAB PO (07:02)
[2018-04-02] MEDS: SEVELAMER CARBONATE 800 MG TABLET PO ×3 (08:01→18:00)
[2018-04-02] MEDS: POTASSIUM CHLORIDE (SR) 20 MEQ TAB PO (08:01)
[2018-04-02] MEDS: PANTOPRAZOLE IV 80 MG in SOD CHLORIDE 0.9% 100 ML IV ×2 (08:07→17:59)
[2018-04-02] MEDS: ALBUMIN HUMAN 25% 100 ML IV (08:07)
[2018-04-02] MEDS: AMIODARONE 200 MG TAB PO (08:29)
[2018-04-02] MEDS: FOLIC ACID 1 MG TAB PO (08:29)
[2018-04-02] MEDS: FINASTERIDE 5 MG TAB PO (08:29)
[2018-04-02] MEDS: PHYTONADIONE 10 MG/ML INJ SC (08:29)
[2018-04-02] MEDS: URSODIOL 300 MG CAP PO ×2 (08:29→20:48)
[2018-04-02 09:01] LABS: ANISOCYTOSIS 2+ (0-0); BASOPHIL #M 0.2 10^3/ul (0.0-0.0); BASOPHILS % (M) 1 % (0-2); EOSINOPHILS % (M) 1 % (0-7); ERYTHROBLAST% (NRBC) (M) 12 % (0-0); GIANT THROMBO% (M) 1 % (0-0); LYMPHOCYTES #M 0.9 10^3/ul (0.8-2.9); LYMPHOCYTES % (M) 4 % (15-51); MICROCYTOSIS 1+ (0-0); MONOCYTE #M 1.5 10^3/ul (0.3-0.9); MONOCYTES % (M) 7 % (0-11); PLATELET ESTIMATE DECREASED; POIKILOCYTOSIS 2+ (0-0); POLYCHROMASIA 3+ (0-0); PROMYELOCYTES #M 0.4 10^3/ul (0-0); PROMYELOCYTES % (M) 2 % (0-0); SEGMENTED NEUTROPHILS (M) % 85 % (39-77); SICKLE CELL 1+ (0-0); TARGET CELLS 1+ (0-0)
[2018-04-02] MEDS: SOD CHLORIDE 0.9% 1,000 ML IV (11:04)
[2018-04-02] MEDS: HEPARIN 1000 UNITS/ML 10 ML INJ CATHETER (17:30)
[2018-04-02] MEDS: VANCOMYCIN 1 GM 250 ML IVPB (18:40)
[2018-04-02] MEDS: TAMSULOSIN (SR) 0.4 MG CAP PO (20:48)
[2018-04-03] MEDS: PANTOPRAZOLE IV 80 MG in SOD CHLORIDE 0.9% 100 ML IV ×3 (03:00→23:10)
[2018-04-03 04:51] LABS: ADD MAN DIFF? NO
[2018-04-03 04:58] LABS: ABNORMAL IP MESSAGE 1; BASOPHIL # 0.1 10^3/ul (0.0-0.1); BASOPHILS % 0.5 % (0.0-2.0); EOSINOPHILS # 0.3 10^3/ul (0.0-0.5); EOSINOPHILS % 1.2 % (0.0-7.0); HEMATOCRIT 17.3 % (42.0-52.0); LYMPHOCYTES # 1.2 10^3/ul (0.8-2.9); LYMPHOCYTES % 5.4 % (15.0-51.0); MEAN CORPUSCULAR HGB CONC 36.4 g/dl (32.0-37.0); MEAN CORPUSCULAR VOLUME 82.4 fl (82.0-101.0); MEAN PLATELET VOLUME 13.7 fl (7.4-10.4); MONOCYTE # 2.1 10^3/ul (0.3-0.9); MONOCYTES % 9.9 % (0.0-11.0); NEUTROPHIL # 17.2 10^3/ul (1.6-7.5); NEUTROPHILS % 80.3 % (39.0-77.0); NUCLEATED RED BLOOD CELLS # 9.2 10^3/ul (0.0-0.0); NUCLEATED RED BLOOD CELLS% 43.1 /100WBC (0.0-0.0); PLATELET COUNT 75 10^3/UL (140-415); POSITIVE DIFF @See below; RED CELL DISTRIBUTION WIDTH 16.5 % (11.5-14.5)
[2018-04-03 04:58] LABS: WHITE BLOOD COUNT 21.4 10^3/ul (4.8-10.8)
[2018-04-03 05:32] LABS: HEMOGLOBIN 6.3 g/dl (14.0-18.0)
[2018-04-03 05:33] LABS: ANION GAP 10 (5-13); BLOOD UREA NITROGEN 36 mg/dl (7-20); CALCIUM 7.4 mg/dl (8.4-10.2); CARBON DIOXIDE 23 mmol/L (21-31); CHLORIDE 108 mmol/L (97-110); CREATININE 2.73 mg/dl (0.61-1.24); Estimated GFR 28 mL/min (>60); GLUCOSE 88 mg/dl (70-220); MAGNESIUM 2.2 mg/dl (1.7-2.5); PHOSPHORUS 2.4 mg/dl (2.5-4.9); POTASSIUM 3.7 mmol/L (3.5-5.1); SODIUM 141 mmol/L (135-144)
[2018-04-03] MEDS: PIPER-TAZO 2.25 GM (PMX) 50 ML IVPB ×3 (06:06→21:28)
[2018-04-03] MEDS: LEVOTHYROXINE 50 MCG TAB PO (06:06)
[2018-04-03] MEDS: URSODIOL 300 MG CAP PO ×2 (08:36→21:27)
[2018-04-03] MEDS: FOLIC ACID 1 MG TAB PO (08:36)
[2018-04-03] MEDS: SEVELAMER CARBONATE 800 MG TABLET PO ×3 (08:36→18:55)
[2018-04-03] MEDS: FINASTERIDE 5 MG TAB PO (08:36)
[2018-04-03] MEDS: AMIODARONE 200 MG TAB PO (08:39)
[2018-04-03] MEDS: PHYTONADIONE 10 MG/ML INJ SC (08:40)
[2018-04-03 12:10] LABS: INR 1.78; PROTIME 21.1 Sec (11.9-14.9); PT RATIO 1.6
[2018-04-03 12:34] LABS: AHG CROSSMATCH 1 1
[2018-04-03] MEDS: SOD CHLORIDE 0.9% 1,000 ML IV (16:07)
[2018-04-03 20:55] LABS: ADD MAN DIFF? NO
[2018-04-03 20:58] LABS: WHITE BLOOD COUNT 21.1 10^3/ul (4.8-10.8)
[2018-04-03 20:58] LABS: ABNORMAL IP MESSAGE 1; BASOPHIL # 0.1 10^3/ul (0.0-0.1); BASOPHILS % 0.6 % (0.0-2.0); EOSINOPHILS # 0.3 10^3/ul (0.0-0.5); EOSINOPHILS % 1.6 % (0.0-7.0); HEMATOCRIT 21.7 % (42.0-52.0); HEMOGLOBIN 7.7 g/dl (14.0-18.0); LYMPHOCYTES # 0.7 10^3/ul (0.8-2.9); LYMPHOCYTES % 3.2 % (15.0-51.0); MEAN CORPUSCULAR HEMOGLOBIN 30.3 pg (29.0-33.0); MEAN CORPUSCULAR HGB CONC 35.5 g/dl (32.0-37.0); MEAN CORPUSCULAR VOLUME 85.4 fl (82.0-101.0); MEAN PLATELET VOLUME 12.6 fl (7.4-10.4); MONOCYTE # 1.9 10^3/ul (0.3-0.9); MONOCYTES % 9.1 % (0.0-11.0); NEUTROPHIL # 17.4 10^3/ul (1.6-7.5); NEUTROPHILS % 82.2 % (39.0-77.0); NUCLEATED RED BLOOD CELLS # 11.2 10^3/ul (0.0-0.0); PLATELET COUNT 100 10^3/UL (140-415); POSITIVE DIFF @See below; RED BLOOD COUNT 2.54 10^6/ul (4.70-6.10); RED CELL DISTRIBUTION WIDTH 17.2 % (11.5-14.5)
[2018-04-03] MEDS: TAMSULOSIN (SR) 0.4 MG CAP PO (21:27)
[2018-04-04 05:07] LABS: WHITE BLOOD COUNT 20.6 10^3/ul (4.8-10.8)
[2018-04-04 05:07] LABS: ABNORMAL IP MESSAGE 1; HEMATOCRIT 20.9 % (42.0-52.0); HEMOGLOBIN 7.6 g/dl (14.0-18.0); MEAN CORPUSCULAR HEMOGLOBIN 30.8 pg (29.0-33.0); MEAN CORPUSCULAR HGB CONC 36.4 g/dl (32.0-37.0); MEAN CORPUSCULAR VOLUME 84.6 fl (82.0-101.0); MEAN PLATELET VOLUME 12.9 fl (7.4-10.4); NUCLEATED RED BLOOD CELLS% 53.9 /100WBC (0.0-0.0); PLATELET COUNT 64 10^3/UL (140-415); POSITIVE DIFF @See below; RED BLOOD COUNT 2.47 10^6/ul (4.70-6.10); RED CELL DISTRIBUTION WIDTH 17.3 % (11.5-14.5)
[2018-04-04 05:19] LABS: ADD MAN DIFF? YES
[2018-04-04 05:37] LABS: INR 1.75; PROTIME 20.8 Sec (11.9-14.9); PT RATIO 1.6
[2018-04-04 05:40] LABS: ALANINE AMINOTRANSFERASE 61 IU/L (13-69); ALBUMIN 2.6 g/dl (3.3-4.9); ALBUMIN/GLOBULIN RATIO 0.74; ALKALINE PHOSPHATASE 85 IU/L (42-121); ANION GAP 12 (5-13); ASPARTATE AMINO TRANSFERASE 80 IU/L (15-46); BLOOD UREA NITROGEN 44 mg/dl (7-20); CALCIUM 7.4 mg/dl (8.4-10.2); CARBON DIOXIDE 19 mmol/L (21-31); CHLORIDE 109 mmol/L (97-110); CREATININE 3.63 mg/dl (0.61-1.24); Estimated GFR 20 mL/min (>60); GLUCOSE 85 mg/dl (70-220); POTASSIUM 3.6 mmol/L (3.5-5.1); SODIUM 140 mmol/L (135-144); TOTAL PROTEIN 6.1 g/dl (6.1-8.1)
[2018-04-04 05:49] LABS: BILIRUBIN,INDIRECT 3.7 mg/dl (0-1.1); BILIRUBIN,TOTAL 33.5 mg/dl (0.2-1.3)
[2018-04-04] MEDS: PIPER-TAZO 2.25 GM (PMX) 50 ML IVPB ×3 (05:57→21:02)
[2018-04-04 06:22] LABS: AMYLASE 212 U/L (11-123)
[2018-04-04 06:22] LABS: LIPASE 1578 U/L (23-300)
[2018-04-04] MEDS: LEVOTHYROXINE 50 MCG TAB PO (06:42)
[2018-04-04 06:59] LABS: PARTIAL THROMBOPLASTIN TIME 75.1 Sec (23.0-35.0)
[2018-04-04 08:11] LABS: ANISOCYTOSIS 1+ (0-0); BASOPHIL #M 0.2 10^3/ul (0.0-0.0); BASOPHILS % (M) 1 % (0-2); BURR CELLS 1+ (0-0); EOSINOPHILS % (M) 3 % (0-7); ERYTHROBLAST% (NRBC) (M) 129 % (0-0); GIANT THROMBO% (M) 5 % (0-0); LYMPHOCYTES #M 1.6 10^3/ul (0.8-2.9); LYMPHOCYTES % (M) 8 % (15-51); MONOCYTE #M 0.6 10^3/ul (0.3-0.9); MONOCYTES % (M) 3 % (0-11); MYELOCYTES #M 0.4 10^3/ul (0.0-0.0); MYELOCYTES % (M) 2 % (0-0); OVALOCYTES 1+ (0-0); PLATELET ESTIMATE DECREASED; POIKILOCYTOSIS 1+ (0-0); POLYCHROMASIA 1+ (0-0); REACTIVE LYMPHOCYTES #M 0.2 10^3/ul (0.0-0.0); REACTIVE LYMPHOCYTES% (M) 1 % (0-0); SEGMENTED NEUTROPHILS (M) % 82 % (39-77); SMUDGE%M 5 % (0-0); TARGET CELLS 1+ (0-0)
[2018-04-04] MEDS: URSODIOL 300 MG CAP PO ×2 (08:38→21:02)
[2018-04-04] MEDS: SEVELAMER CARBONATE 800 MG TABLET PO ×3 (08:38→17:45)
[2018-04-04] MEDS: AMIODARONE 200 MG TAB PO (08:38)
[2018-04-04] MEDS: FOLIC ACID 1 MG TAB PO (08:38)
[2018-04-04] MEDS: PHYTONADIONE 10 MG/ML INJ SC (08:39)
[2018-04-04] MEDS: PANTOPRAZOLE IV 80 MG in SOD CHLORIDE 0.9% 100 ML IV ×3 (08:41→21:15)
[2018-04-04] MEDS: FINASTERIDE 5 MG TAB PO (08:41)
[2018-04-04 09:33] LABS: ABNORMAL IP MESSAGE 1; HEMOGLOBIN 7.9 g/dl (14.0-18.0); MEAN CORPUSCULAR HEMOGLOBIN 30.7 pg (29.0-33.0); MEAN CORPUSCULAR HGB CONC 35.9 g/dl (32.0-37.0); MEAN CORPUSCULAR VOLUME 85.6 fl (82.0-101.0); MEAN PLATELET VOLUME 12.7 fl (7.4-10.4); NUCLEATED RED BLOOD CELLS% 50.2 /100WBC (0.0-0.0); PLATELET COUNT 79 10^3/UL (140-415); POSITIVE DIFF @See below; RED BLOOD COUNT 2.57 10^6/ul (4.70-6.10); RED CELL DISTRIBUTION WIDTH 17.2 % (11.5-14.5)
[2018-04-04 09:33] LABS: WHITE BLOOD COUNT 22.1 10^3/ul (4.8-10.8)
[2018-04-04 09:57] LABS: ADD MAN DIFF? YES
[2018-04-04 11:03] LABS: ANISOCYTOSIS 1+ (0-0); BAND NEUTROPHILS #M 0.2 10^3/ul (0.0-0.6); BAND NEUTROPHILS % (M) 1 % (0-4); BURR CELLS 1+ (0-0); EOSINOPHILS % (M) 4 % (0-7); ERYTHROBLAST% (NRBC) (M) 79 % (0-0); LYMPHOCYTES #M 1.5 10^3/ul (0.8-2.9); LYMPHOCYTES % (M) 7 % (15-51); METAMYELOCYTES #M 0.4 10^3/ul (0.0-0.0); METAMYELOCYTES %M 2 % (0-0); MONOCYTE #M 1.7 10^3/ul (0.3-0.9); MONOCYTES % (M) 8 % (0-11); MYELOCYTES #M 0.2 10^3/ul (0.0-0.0); MYELOCYTES % (M) 1 % (0-0); PLATELET ESTIMATE DECREASED; POIKILOCYTOSIS 3+ (0-0); POLYCHROMASIA 1+ (0-0); SEG NEUT #M 17.1 10^3/ul (1.6-7.5); SEGMENTED NEUTROPHILS (M) % 77 % (39-77); TARGET CELLS 1+ (0-0)
[2018-04-04] MEDS: HEPARIN 1000 UNITS/ML 10 ML INJ CATHETER (13:20)
[2018-04-04] MEDS: TAMSULOSIN (SR) 0.4 MG CAP PO (21:02)
[2018-04-04 22:34] LABS: ADD MAN DIFF? NO
[2018-04-04 22:37] LABS: WHITE BLOOD COUNT 22.1 10^3/ul (4.8-10.8)
[2018-04-04 22:37] LABS: ABNORMAL IP MESSAGE 1; BASOPHIL # 0.2 10^3/ul (0.0-0.1); BASOPHILS % 0.7 % (0.0-2.0); EOSINOPHILS # 0.4 10^3/ul (0.0-0.5); EOSINOPHILS % 1.8 % (0.0-7.0); HEMATOCRIT 21.5 % (42.0-52.0); HEMOGLOBIN 7.7 g/dl (14.0-18.0); LYMPHOCYTES # 0.3 10^3/ul (0.8-2.9); LYMPHOCYTES % 1.2 % (15.0-51.0); MEAN CORPUSCULAR HEMOGLOBIN 30.7 pg (29.0-33.0); MEAN CORPUSCULAR HGB CONC 35.8 g/dl (32.0-37.0); MEAN CORPUSCULAR VOLUME 85.7 fl (82.0-101.0); MONOCYTE # 1.6 10^3/ul (0.3-0.9); MONOCYTES % 7.1 % (0.0-11.0); NEUTROPHIL # 19.2 10^3/ul (1.6-7.5); NEUTROPHILS % 86.5 % (39.0-77.0); NUCLEATED RED BLOOD CELLS # 9.3 10^3/ul (0.0-0.0); NUCLEATED RED BLOOD CELLS% 42.1 /100WBC (0.0-0.0); PLATELET COUNT 68 10^3/UL (140-415); POSITIVE DIFF @See below; RED BLOOD COUNT 2.51 10^6/ul (4.70-6.10); RED CELL DISTRIBUTION WIDTH 17.2 % (11.5-14.5)
[2018-04-05] MEDS: SOD CHLORIDE 0.9% 1,000 ML IV (03:41)
[2018-04-05 05:14] LABS: ADD MAN DIFF? NO
[2018-04-05 05:17] LABS: ABNORMAL IP MESSAGE 1; BASOPHIL # 0.2 10^3/ul (0.0-0.1); BASOPHILS % 0.8 % (0.0-2.0); EOSINOPHILS # 0.4 10^3/ul (0.0-0.5); HEMATOCRIT 20.5 % (42.0-52.0); HEMOGLOBIN 7.3 g/dl (14.0-18.0); LYMPHOCYTES # 0.7 10^3/ul (0.8-2.9); LYMPHOCYTES % 3.4 % (15.0-51.0); MEAN CORPUSCULAR HEMOGLOBIN 29.8 pg (29.0-33.0); MEAN CORPUSCULAR HGB CONC 35.6 g/dl (32.0-37.0); MEAN CORPUSCULAR VOLUME 83.7 fl (82.0-101.0); MEAN PLATELET VOLUME 12.6 fl (7.4-10.4); MONOCYTE # 1.7 10^3/ul (0.3-0.9); MONOCYTES % 7.8 % (0.0-11.0); NEUTROPHILS % 83.5 % (39.0-77.0); NUCLEATED RED BLOOD CELLS # 8.2 10^3/ul (0.0-0.0); PLATELET COUNT 75 10^3/UL (140-415); POSITIVE DIFF @See below; RED BLOOD COUNT 2.45 10^6/ul (4.70-6.10); RED CELL DISTRIBUTION WIDTH 17.4 % (11.5-14.5)
[2018-04-05 05:17] LABS: WHITE BLOOD COUNT 21.5 10^3/ul (4.8-10.8)
[2018-04-05] MEDS: PANTOPRAZOLE IV 80 MG in SOD CHLORIDE 0.9% 100 ML IV ×3 (06:13→21:38)
[2018-04-05] MEDS: LEVOTHYROXINE 50 MCG TAB PO (06:14)
[2018-04-05] MEDS: PIPER-TAZO 2.25 GM (PMX) 50 ML IVPB ×3 (06:14→21:27)
[2018-04-05 06:26] LABS: ANION GAP 10 (5-13); BLOOD UREA NITROGEN 32 mg/dl (7-20); CALCIUM 7.1 mg/dl (8.4-10.2); CARBON DIOXIDE 22 mmol/L (21-31); CHLORIDE 106 mmol/L (97-110); CREATININE 2.42 mg/dl (0.61-1.24); Estimated GFR 33 mL/min (>60); GLUCOSE 72 mg/dl (70-220); MAGNESIUM 2.1 mg/dl (1.7-2.5); PHOSPHORUS 3.7 mg/dl (2.5-4.9); POTASSIUM 3.6 mmol/L (3.5-5.1); SODIUM 138 mmol/L (135-144)
[2018-04-05] MEDS: FOLIC ACID 1 MG TAB PO (08:09)
[2018-04-05] MEDS: URSODIOL 300 MG CAP PO ×2 (08:09→21:27)
[2018-04-05] MEDS: FINASTERIDE 5 MG TAB PO (08:09)
[2018-04-05] MEDS: AMIODARONE 200 MG TAB PO (08:27)
[2018-04-05 09:55] LABS: ADD MAN DIFF? NO
[2018-04-05 10:10] LABS: ABNORMAL IP MESSAGE 1; BASOPHIL # 0.1 10^3/ul (0.0-0.1); BASOPHILS % 0.7 % (0.0-2.0); EOSINOPHILS # 0.4 10^3/ul (0.0-0.5); EOSINOPHILS % 1.7 % (0.0-7.0); HEMATOCRIT 21.3 % (42.0-52.0); HEMOGLOBIN 7.6 g/dl (14.0-18.0); LYMPHOCYTES # 0.4 10^3/ul (0.8-2.9); LYMPHOCYTES % 1.7 % (15.0-51.0); MEAN CORPUSCULAR HEMOGLOBIN 30.3 pg (29.0-33.0); MEAN CORPUSCULAR HGB CONC 35.7 g/dl (32.0-37.0); MEAN CORPUSCULAR VOLUME 84.9 fl (82.0-101.0); MEAN PLATELET VOLUME 13.2 fl (7.4-10.4); MONOCYTE # 1.7 10^3/ul (0.3-0.9); MONOCYTES % 7.8 % (0.0-11.0); NEUTROPHIL # 18.3 10^3/ul (1.6-7.5); NEUTROPHILS % 85.8 % (39.0-77.0); NUCLEATED RED BLOOD CELLS # 7.6 10^3/ul (0.0-0.0); NUCLEATED RED BLOOD CELLS% 35.5 /100WBC (0.0-0.0); PLATELET COUNT 79 10^3/UL (140-415); POSITIVE DIFF @See below; RED BLOOD COUNT 2.51 10^6/ul (4.70-6.10); RED CELL DISTRIBUTION WIDTH 17.7 % (11.5-14.5)
[2018-04-05 10:10] LABS: WHITE BLOOD COUNT 21.3 10^3/ul (4.8-10.8)
[2018-04-05] MEDS ORDERED: PENDING SANTYL ORDER FOR WOUND CARE XX (14:00)
[2018-04-05] MEDS: VANCOMYCIN 1 GM 250 ML IVPB (18:14)
[2018-04-05] MEDS: TAMSULOSIN (SR) 0.4 MG CAP PO (21:27)
[2018-04-06] MEDS: PANTOPRAZOLE IV 80 MG in SOD CHLORIDE 0.9% 100 ML IV ×2 (04:42→14:30)
[2018-04-06 05:18] LABS: ADD MAN DIFF? NO
[2018-04-06 05:22] LABS: WHITE BLOOD COUNT 26.2 10^3/ul (4.8-10.8)
[2018-04-06 05:22] LABS: ABNORMAL IP MESSAGE 1; BASOPHIL # 0.1 10^3/ul (0.0-0.1); BASOPHILS % 0.5 % (0.0-2.0); EOSINOPHILS # 0.4 10^3/ul (0.0-0.5); EOSINOPHILS % 1.6 % (0.0-7.0); HEMATOCRIT 20.2 % (42.0-52.0); HEMOGLOBIN 7.4 g/dl (14.0-18.0); LYMPHOCYTES # 0.6 10^3/ul (0.8-2.9); LYMPHOCYTES % 2.3 % (15.0-51.0); MEAN CORPUSCULAR HEMOGLOBIN 31.1 pg (29.0-33.0); MEAN CORPUSCULAR HGB CONC 36.6 g/dl (32.0-37.0); MEAN CORPUSCULAR VOLUME 84.9 fl (82.0-101.0); MEAN PLATELET VOLUME 13.3 fl (7.4-10.4); MONOCYTE # 1.9 10^3/ul (0.3-0.9); MONOCYTES % 7.2 % (0.0-11.0); NEUTROPHIL # 22.6 10^3/ul (1.6-7.5); NEUTROPHILS % 86.4 % (39.0-77.0); NUCLEATED RED BLOOD CELLS # 5.1 10^3/ul (0.0-0.0); NUCLEATED RED BLOOD CELLS% 19.4 /100WBC (0.0-0.0); POSITIVE DIFF @See below; RED BLOOD COUNT 2.38 10^6/ul (4.70-6.10); RED CELL DISTRIBUTION WIDTH 17.4 % (11.5-14.5)
[2018-04-06 05:57] LABS: ALANINE AMINOTRANSFERASE 44 IU/L (13-69); ALBUMIN 2.4 g/dl (3.3-4.9); ALKALINE PHOSPHATASE 88 IU/L (42-121); ASPARTATE AMINO TRANSFERASE 56 IU/L (15-46); PLATELET COUNT 67 10^3/UL (140-415); TOTAL PROTEIN 5.6 g/dl (6.1-8.1)
[2018-04-06 06:03] LABS: ANION GAP 13 (5-13); BLOOD UREA NITROGEN 41 mg/dl (7-20); CALCIUM 6.9 mg/dl (8.4-10.2); CARBON DIOXIDE 20 mmol/L (21-31); CHLORIDE 105 mmol/L (97-110); Estimated GFR 25 mL/min (>60); GLUCOSE 86 mg/dl (70-220); MAGNESIUM 2.1 mg/dl (1.7-2.5); PHOSPHORUS 4.2 mg/dl (2.5-4.9); POTASSIUM 3.4 mmol/L (3.5-5.1); SODIUM 138 mmol/L (135-144)
[2018-04-06] MEDS: LEVOTHYROXINE 50 MCG TAB PO (06:12)
[2018-04-06] MEDS: PIPER-TAZO 2.25 GM (PMX) 50 ML IVPB ×3 (06:12→21:40)
[2018-04-06 06:28] LABS: BILIRUBIN,TOTAL 29.5 mg/dl (0.2-1.3)
[2018-04-06 06:30] LABS: BILIRUBIN,INDIRECT 3.5 mg/dl (0-1.1)
[2018-04-06] MEDS: FOLIC ACID 1 MG TAB PO (08:13)
[2018-04-06] MEDS: FINASTERIDE 5 MG TAB PO (08:13)
[2018-04-06] MEDS: URSODIOL 300 MG CAP PO ×2 (08:13→20:29)
[2018-04-06] MEDS: AMIODARONE 200 MG TAB PO (08:14)
[2018-04-06] MEDS: POTASSIUM CHLORIDE (SR) 20 MEQ TAB PO (08:43)
[2018-04-06] MEDS: TAMSULOSIN (SR) 0.4 MG CAP PO (20:29)
[2018-04-07] MEDS: PANTOPRAZOLE IV 80 MG in SOD CHLORIDE 0.9% 100 ML IV (02:02)
[2018-04-07 05:55] LABS: WHITE BLOOD COUNT 30.2 10^3/ul (4.8-10.8)
[2018-04-07 05:55] LABS: ABNORMAL IP MESSAGE 1; HEMATOCRIT 19.3 % (42.0-52.0); MEAN CORPUSCULAR HEMOGLOBIN 30.7 pg (29.0-33.0); MEAN CORPUSCULAR HGB CONC 35.8 g/dl (32.0-37.0); MEAN CORPUSCULAR VOLUME 85.8 fl (82.0-101.0); MEAN PLATELET VOLUME 12.5 fl (7.4-10.4); PLATELET COUNT 54 10^3/UL (140-415); POSITIVE DIFF @See below; RED BLOOD COUNT 2.25 10^6/ul (4.70-6.10); RED CELL DISTRIBUTION WIDTH 17.6 % (11.5-14.5)
[2018-04-07 05:59] LABS: ADD MAN DIFF? YES
[2018-04-07 06:00] LABS: HEMOGLOBIN 6.9 g/dl (14.0-18.0)
[2018-04-07] MEDS: PIPER-TAZO 2.25 GM (PMX) 50 ML IVPB ×3 (06:04→20:46)
[2018-04-07] MEDS: LEVOTHYROXINE 50 MCG TAB PO ×2 (06:05→08:27)
[2018-04-07 06:47] LABS: ANION GAP 15 (5-13); BLOOD UREA NITROGEN 46 mg/dl (7-20); CALCIUM 6.8 mg/dl (8.4-10.2); CARBON DIOXIDE 18 mmol/L (21-31); CHLORIDE 103 mmol/L (97-110); CREATININE 3.77 mg/dl (0.61-1.24); Estimated GFR 20 mL/min (>60); GLUCOSE 55 mg/dl (70-220); MAGNESIUM 2.2 mg/dl (1.7-2.5); PHOSPHORUS 4.3 mg/dl (2.5-4.9); POTASSIUM 3.4 mmol/L (3.5-5.1); SODIUM 136 mmol/L (135-144)
[2018-04-07 07:08] LABS: ANISOCYTOSIS 1+ (0-0); EOSINOPHILS % (M) 2 % (0-7); ERYTHROBLAST% (NRBC) (M) 11 % (0-0); LYMPHOCYTES #M 1.5 10^3/ul (0.8-2.9); LYMPHOCYTES % (M) 5 % (15-51); MONOCYTE #M 0.6 10^3/ul (0.3-0.9); MONOCYTES % (M) 2 % (0-11); PLATELET ESTIMATE DECREASED; POLYCHROMASIA 1+ (0-0); REACTIVE LYMPHOCYTES #M 0.3 10^3/ul (0.0-0.0); REACTIVE LYMPHOCYTES% (M) 1 % (0-0); SEGMENTED NEUTROPHILS (M) % 90 % (39-77); SICKLE CELL 1+ (0-0); SMUDGE%M 6 % (0-0); TARGET CELLS 1+ (0-0)
[2018-04-07 07:28] LABS: LIPASE 891 U/L (23-300)
[2018-04-07 07:28] LABS: AMYLASE 167 U/L (11-123)
[2018-04-07 08:03] LABS: ALANINE AMINOTRANSFERASE 44 IU/L (13-69); ALBUMIN 2.2 g/dl (3.3-4.9); ALKALINE PHOSPHATASE 94 IU/L (42-121); ASPARTATE AMINO TRANSFERASE 68 IU/L (15-46); BILIRUBIN,INDIRECT 3.1 mg/dl (0-1.1); TOTAL PROTEIN 5.3 g/dl (6.1-8.1)
[2018-04-07 08:04] LABS: BILIRUBIN,TOTAL 29.9 mg/dl (0.2-1.3)
[2018-04-07] MEDS: FINASTERIDE 5 MG TAB PO (08:27)
[2018-04-07] MEDS: AMIODARONE 200 MG TAB PO (08:28)
[2018-04-07] MEDS: FOLIC ACID 1 MG TAB PO (08:28)
[2018-04-07] MEDS: URSODIOL 300 MG CAP PO ×2 (08:28→20:45)
[2018-04-07] MEDS: POTASSIUM CHLORIDE (SR) 20 MEQ TAB PO (08:35)
[2018-04-07] MEDS: HYDROmorphONE 0.5 MG/0.5 ML SYG IV ×3 (12:37→20:45)
[2018-04-07 17:00] LABS: AHG CROSSMATCH 1 1
[2018-04-07] MEDS: PANTOPRAZOLE (EC) 40 MG TAB PO (18:00)
[2018-04-07] MEDS: HEPARIN 1000 UNITS/ML 10 ML INJ CATHETER (20:11)
[2018-04-07] MEDS: TAMSULOSIN (SR) 0.4 MG CAP PO (20:45)
[2018-04-08] MEDS: HYDROmorphONE 0.5 MG/0.5 ML SYG IV ×5 (02:02→21:24)
[2018-04-08] MEDS: PIPER-TAZO 2.25 GM (PMX) 50 ML IVPB ×3 (04:42→21:23)
[2018-04-08] MEDS: PANTOPRAZOLE (EC) 40 MG TAB PO ×2 (04:42→18:35)
[2018-04-08 06:08] LABS: ABNORMAL IP MESSAGE 1; HEMATOCRIT 21.7 % (42.0-52.0); HEMOGLOBIN 7.8 g/dl (14.0-18.0); MEAN CORPUSCULAR HGB CONC 35.9 g/dl (32.0-37.0); MEAN CORPUSCULAR VOLUME 83.5 fl (82.0-101.0); MEAN PLATELET VOLUME 13.1 fl (7.4-10.4); NUCLEATED RED BLOOD CELLS% 1.7 /100WBC (0.0-0.0); PLATELET COUNT 94 10^3/UL (140-415); POSITIVE DIFF @See below; RED CELL DISTRIBUTION WIDTH 16.9 % (11.5-14.5)
[2018-04-08 06:08] LABS: WHITE BLOOD COUNT 31.5 10^3/ul (4.8-10.8)
[2018-04-08 06:16] LABS: ADD MAN DIFF? YES
[2018-04-08 06:47] LABS: INR 2.14; PROTIME 24.4 Sec (11.9-14.9); PT RATIO 1.9
[2018-04-08 07:11] LABS: ANION GAP 11 (5-13); BLOOD UREA NITROGEN 30 mg/dl (7-20); CALCIUM 7.2 mg/dl (8.4-10.2); CARBON DIOXIDE 23 mmol/L (21-31); CHLORIDE 105 mmol/L (97-110); CREATININE 2.48 mg/dl (0.61-1.24); Estimated GFR 32 mL/min (>60); GLUCOSE 54 mg/dl (70-220); MAGNESIUM 2.1 mg/dl (1.7-2.5); PHOSPHORUS 3.8 mg/dl (2.5-4.9); POTASSIUM 3.8 mmol/L (3.5-5.1); SODIUM 139 mmol/L (135-144)
[2018-04-08 07:42] LABS: ANISOCYTOSIS 1+ (0-0); BASOPHIL #M 0.3 10^3/ul (0.0-0.0); BASOPHILS % (M) 1 % (0-2); BURR CELLS 2+ (0-0); EOSINOPHILS % (M) 1 % (0-7); ERYTHROBLAST% (NRBC) (M) 2 % (0-0); GIANT THROMBO% (M) 8 % (0-0); HYPOCHROMASIA 2+ (0-0); LYMPHOCYTES #M 2.2 10^3/ul (0.8-2.9); LYMPHOCYTES % (M) 7 % (15-51); MONOCYTE #M 0.9 10^3/ul (0.3-0.9); MONOCYTES % (M) 3 % (0-11); MYELOCYTES #M 0.3 10^3/ul (0.0-0.0); MYELOCYTES % (M) 1 % (0-0); PLATELET ESTIMATE DECREASED; POIKILOCYTOSIS 2+ (0-0); PROMYELOCYTES #M 0.3 10^3/ul (0-0); PROMYELOCYTES % (M) 1 % (0-0); SEGMENTED NEUTROPHILS (M) % 86 % (39-77); SMUDGE%M 3 % (0-0); SPHEROCYTES 1+ (0-0); TARGET CELLS 3+ (0-0)
[2018-04-08] MEDS: FINASTERIDE 5 MG TAB PO (08:06)
[2018-04-08] MEDS: URSODIOL 300 MG CAP PO ×2 (08:07→21:23)
[2018-04-08] MEDS: FOLIC ACID 1 MG TAB PO (08:07)
[2018-04-08] MEDS: AMIODARONE 200 MG TAB PO (08:07)
[2018-04-08 17:25] LABS: VANCOMYCIN,TROUGH 11.3 ug/ml (10.0-20.0)
[2018-04-08] MEDS: VANCOMYCIN 1 GM 250 ML IVPB (18:19)
[2018-04-08] MEDS: TAMSULOSIN (SR) 0.4 MG CAP PO (21:23)
[2018-04-09] MEDS: PIPER-TAZO 2.25 GM (PMX) 50 ML IVPB ×3 (05:44→21:58)
[2018-04-09] MEDS: PANTOPRAZOLE (EC) 40 MG TAB PO ×2 (05:45→17:36)
[2018-04-09 06:10] LABS: ADD MAN DIFF? NO
[2018-04-09] MEDS: LEVOTHYROXINE 50 MCG TAB PO (06:17)
[2018-04-09 06:21] LABS: ABNORMAL IP MESSAGE 1; BASOPHIL # 0.2 10^3/ul (0.0-0.1); BASOPHILS % 0.5 % (0.0-2.0); EOSINOPHILS # 0.3 10^3/ul (0.0-0.5); HEMATOCRIT 21.2 % (42.0-52.0); HEMOGLOBIN 7.6 g/dl (14.0-18.0); LYMPHOCYTES % 3.3 % (15.0-51.0); MEAN CORPUSCULAR HEMOGLOBIN 30.2 pg (29.0-33.0); MEAN CORPUSCULAR HGB CONC 35.8 g/dl (32.0-37.0); MEAN CORPUSCULAR VOLUME 84.1 fl (82.0-101.0); MEAN PLATELET VOLUME 13.4 fl (7.4-10.4); MONOCYTE # 2.4 10^3/ul (0.3-0.9); MONOCYTES % 7.7 % (0.0-11.0); NEUTROPHIL # 26.2 10^3/ul (1.6-7.5); NEUTROPHILS % 85.3 % (39.0-77.0); NUCLEATED RED BLOOD CELLS # 0.3 10^3/ul (0.0-0.0); NUCLEATED RED BLOOD CELLS% 0.9 /100WBC (0.0-0.0); PLATELET COUNT 113 10^3/UL (140-415); POSITIVE DIFF @See below; RED BLOOD COUNT 2.52 10^6/ul (4.70-6.10)
[2018-04-09 06:21] LABS: WHITE BLOOD COUNT 30.8 10^3/ul (4.8-10.8)
[2018-04-09 06:29] LABS: ALANINE AMINOTRANSFERASE 47 IU/L (13-69); ALBUMIN 2.3 g/dl (3.3-4.9); ALKALINE PHOSPHATASE 99 IU/L (42-121); ANION GAP 14 (5-13); ASPARTATE AMINO TRANSFERASE 89 IU/L (15-46); BILIRUBIN,INDIRECT 2.2 mg/dl (0-1.1); BLOOD UREA NITROGEN 39 mg/dl (7-20); CALCIUM 7.2 mg/dl (8.4-10.2); CARBON DIOXIDE 21 mmol/L (21-31); CHLORIDE 104 mmol/L (97-110); CREATININE 3.15 mg/dl (0.61-1.24); Estimated GFR 24 mL/min (>60); GLUCOSE 87 mg/dl (70-220); MAGNESIUM 2.1 mg/dl (1.7-2.5); PHOSPHORUS 3.9 mg/dl (2.5-4.9); POTASSIUM 3.3 mmol/L (3.5-5.1); SODIUM 139 mmol/L (135-144); TOTAL PROTEIN 5.2 g/dl (6.1-8.1)
[2018-04-09 06:31] LABS: BILIRUBIN,TOTAL 29.2 mg/dl (0.2-1.3)
[2018-04-09 06:42] LABS: LIPASE 679 U/L (23-300)
[2018-04-09 06:42] LABS: AMYLASE 117 U/L (11-123)
[2018-04-09] MEDS: FINASTERIDE 5 MG TAB PO (09:42)
[2018-04-09] MEDS: FOLIC ACID 1 MG TAB PO (09:43)
[2018-04-09] MEDS: AMIODARONE 200 MG TAB PO (09:43)
[2018-04-09] MEDS: BALSAM PERU/CASTOR OIL 60 GM TUBE TOP (09:43)
[2018-04-09] MEDS: URSODIOL 300 MG CAP PO ×2 (09:43→21:58)
[2018-04-09] MEDS: HYDROmorphONE 0.5 MG/0.5 ML SYG IV (12:18)
[2018-04-09] MEDS: TAMSULOSIN (SR) 0.4 MG CAP PO (21:00)
[2018-04-10] MEDS: PIPER-TAZO 2.25 GM (PMX) 50 ML IVPB ×3 (05:50→21:55)
[2018-04-10] MEDS: PANTOPRAZOLE (EC) 40 MG TAB PO ×2 (05:50→18:06)
[2018-04-10] MEDS: LEVOTHYROXINE 50 MCG TAB PO (06:50)
[2018-04-10 07:12] LABS: AMMONIA 34 umol/l (9-30)
[2018-04-10] MEDS: BALSAM PERU/CASTOR OIL 60 GM TUBE TOP (08:19)
[2018-04-10] MEDS: AMIODARONE 200 MG TAB PO (08:20)
[2018-04-10] MEDS: FOLIC ACID 1 MG TAB PO (08:20)
[2018-04-10] MEDS: FINASTERIDE 5 MG TAB PO (08:20)
[2018-04-10] MEDS: URSODIOL 300 MG CAP PO ×2 (08:20→21:07)
[2018-04-10] MEDS: HYDROmorphONE 0.5 MG/0.5 ML SYG IV (16:23)
[2018-04-10] MEDS: HEPARIN 1000 UNITS/ML 10 ML INJ CATHETER (17:35)
[2018-04-10 17:58] LABS: ADD MAN DIFF? NO
[2018-04-10 18:08] LABS: WHITE BLOOD COUNT 31.4 10^3/ul (4.8-10.8)
[2018-04-10 18:08] LABS: ABNORMAL IP MESSAGE 1; BASOPHIL # 0.1 10^3/ul (0.0-0.1); BASOPHILS % 0.4 % (0.0-2.0); EOSINOPHILS # 0.2 10^3/ul (0.0-0.5); EOSINOPHILS % 0.5 % (0.0-7.0); HEMATOCRIT 23.8 % (42.0-52.0); HEMOGLOBIN 8.8 g/dl (14.0-18.0); LYMPHOCYTES # 1.2 10^3/ul (0.8-2.9); LYMPHOCYTES % 3.7 % (15.0-51.0); MEAN CORPUSCULAR VOLUME 81.2 fl (82.0-101.0); MEAN PLATELET VOLUME 12.7 fl (7.4-10.4); MONOCYTE # 2.4 10^3/ul (0.3-0.9); MONOCYTES % 7.6 % (0.0-11.0); NEUTROPHIL # 26.6 10^3/ul (1.6-7.5); NEUTROPHILS % 84.8 % (39.0-77.0); NUCLEATED RED BLOOD CELLS # 0.3 10^3/ul (0.0-0.0); PLATELET COUNT 169 10^3/UL (140-415); POSITIVE DIFF @See below; RED BLOOD COUNT 2.93 10^6/ul (4.70-6.10); RED CELL DISTRIBUTION WIDTH 16.5 % (11.5-14.5)
[2018-04-10] MEDS: TAMSULOSIN (SR) 0.4 MG CAP PO (21:07)
[2018-04-11] MEDS: PIPER-TAZO 2.25 GM (PMX) 50 ML IVPB (06:02)
[2018-04-11] MEDS: PANTOPRAZOLE (EC) 40 MG TAB PO ×2 (06:02→17:17)
[2018-04-11 06:11] LABS: ABNORMAL IP MESSAGE 1; HEMATOCRIT 20.8 % (42.0-52.0); HEMOGLOBIN 7.6 g/dl (14.0-18.0); MEAN CORPUSCULAR HEMOGLOBIN 30.2 pg (29.0-33.0); MEAN CORPUSCULAR HGB CONC 36.5 g/dl (32.0-37.0); MEAN CORPUSCULAR VOLUME 82.5 fl (82.0-101.0); MEAN PLATELET VOLUME 12.4 fl (7.4-10.4); NUCLEATED RED BLOOD CELLS% 1.4 /100WBC (0.0-0.0); PLATELET COUNT 125 10^3/UL (140-415); POSITIVE DIFF @See below; RED BLOOD COUNT 2.52 10^6/ul (4.70-6.10); RED CELL DISTRIBUTION WIDTH 16.4 % (11.5-14.5)
[2018-04-11 06:11] LABS: WHITE BLOOD COUNT 32.4 10^3/ul (4.8-10.8)
[2018-04-11 06:23] LABS: ADD MAN DIFF? YES
[2018-04-11 06:40] LABS: ALANINE AMINOTRANSFERASE 58 IU/L (13-69); ALBUMIN 2.4 g/dl (3.3-4.9); ALBUMIN/GLOBULIN RATIO 0.75; ALKALINE PHOSPHATASE 122 IU/L (42-121); ANION GAP 13 (5-13); ASPARTATE AMINO TRANSFERASE 92 IU/L (15-46); BILIRUBIN,INDIRECT 2.1 mg/dl (0-1.1); BILIRUBIN,TOTAL 26.8 mg/dl (0.2-1.3); BLOOD UREA NITROGEN 32 mg/dl (7-20); CALCIUM 7.6 mg/dl (8.4-10.2); CARBON DIOXIDE 26 mmol/L (21-31); CHLORIDE 100 mmol/L (97-110); CREATININE 2.75 mg/dl (0.61-1.24); Estimated GFR 28 mL/min (>60); GLUCOSE 97 mg/dl (70-220); SODIUM 139 mmol/L (135-144); TOTAL PROTEIN 5.6 g/dl (6.1-8.1)
[2018-04-11 06:53] LABS: POTASSIUM 2.9 mmol/L (3.5-5.1)
[2018-04-11] MEDS: LEVOTHYROXINE 50 MCG TAB PO (07:28)
[2018-04-11] MEDS: URSODIOL 300 MG CAP PO ×2 (08:21→20:02)
[2018-04-11] MEDS: FINASTERIDE 5 MG TAB PO (08:22)
[2018-04-11] MEDS: POTASSIUM CHLORIDE (SR) 20 MEQ TAB PO (08:23)
[2018-04-11] MEDS: AMIODARONE 200 MG TAB PO (08:24)
[2018-04-11] MEDS: FOLIC ACID 1 MG TAB PO (08:24)
[2018-04-11] MEDS: BALSAM PERU/CASTOR OIL 60 GM TUBE TOP (08:25)
[2018-04-11 08:32] LABS: ANISOCYTOSIS 2+ (0-0); BASOPHIL #M 0.6 10^3/ul (0.0-0.0); BASOPHILS % (M) 2 % (0-2); ERYTHROBLAST% (NRBC) (M) 4 % (0-0); GIANT THROMBO% (M) 22 % (0-0); HYPOCHROMASIA 1+ (0-0); LYMPHOCYTES #M 1.6 10^3/ul (0.8-2.9); LYMPHOCYTES % (M) 5 % (15-51); MONOCYTE #M 0.9 10^3/ul (0.3-0.9); MONOCYTES % (M) 3 % (0-11); MYELOCYTES #M 0.6 10^3/ul (0.0-0.0); MYELOCYTES % (M) 2 % (0-0); PLATELET ESTIMATE DECREASED; REACTIVE LYMPHOCYTES #M 0.6 10^3/ul (0.0-0.0); REACTIVE LYMPHOCYTES% (M) 2 % (0-0); SEGMENTED NEUTROPHILS (M) % 86 % (39-77); SMUDGE%M 5 % (0-0); TARGET CELLS 2+ (0-0)
[2018-04-11] MEDS: TAMSULOSIN (SR) 0.4 MG CAP PO (20:02)
[2018-04-12] MEDS: PANTOPRAZOLE (EC) 40 MG TAB PO ×2 (06:09→18:02)
[2018-04-12] MEDS: LEVOTHYROXINE 50 MCG TAB PO (06:09)
[2018-04-12 07:21] LABS: ABNORMAL IP MESSAGE 1; HEMOGLOBIN 7.1 g/dl (14.0-18.0); MEAN CORPUSCULAR HEMOGLOBIN 30.9 pg (29.0-33.0); MEAN CORPUSCULAR HGB CONC 37.4 g/dl (32.0-37.0); MEAN CORPUSCULAR VOLUME 82.6 fl (82.0-101.0); MEAN PLATELET VOLUME 13.2 fl (7.4-10.4); NUCLEATED RED BLOOD CELLS% 2.2 /100WBC (0.0-0.0); PLATELET COUNT 132 10^3/UL (140-415); POSITIVE DIFF @See below; RED CELL DISTRIBUTION WIDTH 17.1 % (11.5-14.5)
[2018-04-12 07:21] LABS: WHITE BLOOD COUNT 37.3 10^3/ul (4.8-10.8)
[2018-04-12 07:24] LABS: ADD MAN DIFF? YES
[2018-04-12 07:39] LABS: ALANINE AMINOTRANSFERASE 57 IU/L (13-69); ALBUMIN 2.3 g/dl (3.3-4.9); ALKALINE PHOSPHATASE 153 IU/L (42-121); ASPARTATE AMINO TRANSFERASE 112 IU/L (15-46); BILIRUBIN,INDIRECT 2.3 mg/dl (0-1.1)
[2018-04-12 07:42] LABS: INR 2.47; PROTIME 27.4 Sec (11.9-14.9); PT RATIO 2.1
[2018-04-12 07:50] LABS: ANION GAP 14 (5-13); BLOOD UREA NITROGEN 47 mg/dl (7-20); CALCIUM 7.4 mg/dl (8.4-10.2); CARBON DIOXIDE 24 mmol/L (21-31); CHLORIDE 101 mmol/L (97-110); CREATININE 3.55 mg/dl (0.61-1.24); Estimated GFR 21 mL/min (>60); GLUCOSE 85 mg/dl (70-220); MAGNESIUM 2.1 mg/dl (1.7-2.5); PHOSPHORUS 2.1 mg/dl (2.5-4.9); POTASSIUM 3.2 mmol/L (3.5-5.1); SODIUM 139 mmol/L (135-144)
[2018-04-12 07:55] LABS: LIPASE 736 U/L (23-300)
[2018-04-12 07:58] LABS: BILIRUBIN,TOTAL 28.1 mg/dl (0.2-1.3)
[2018-04-12 08:13] LABS: PARTIAL THROMBOPLASTIN TIME 104.7 Sec (23.0-35.0)
[2018-04-12] MEDS: FOLIC ACID 1 MG TAB PO (08:38)
[2018-04-12] MEDS: FINASTERIDE 5 MG TAB PO (08:38)
[2018-04-12] MEDS: URSODIOL 300 MG CAP PO ×2 (08:38→20:31)
[2018-04-12] MEDS: BALSAM PERU/CASTOR OIL 60 GM TUBE TOP (08:39)
[2018-04-12] MEDS: AMIODARONE 200 MG TAB PO (08:39)
[2018-04-12 08:54] LABS: ANISOCYTOSIS 2+ (0-0); BAND NEUTROPHILS #M 0.3 10^3/ul (0.0-0.6); BAND NEUTROPHILS % (M) 1 % (0-4); BURR CELLS 2+ (0-0); EOSINOPHILS % (M) 2 % (0-7); ERYTHROBLAST% (NRBC) (M) 6 % (0-0); LYMPHOCYTES #M 1.4 10^3/ul (0.8-2.9); LYMPHOCYTES % (M) 4 % (15-51); MONOCYTE #M 1.4 10^3/ul (0.3-0.9); MONOCYTES % (M) 4 % (0-11); PLATELET ESTIMATE DECREASED; POIKILOCYTOSIS 2+ (0-0); REACTIVE LYMPHOCYTES #M 0.3 10^3/ul (0.0-0.0); REACTIVE LYMPHOCYTES% (M) 1 % (0-0); SEG NEUT #M 32.9 10^3/ul (1.6-7.5); SEGMENTED NEUTROPHILS (M) % 88 % (39-77); SMUDGE%M 19 % (0-0); TARGET CELLS 2+ (0-0)
[2018-04-12] MEDS ORDERED: LACTULOSE 30ML CUP PO (16:00)
[2018-04-12] MEDS: TAMSULOSIN (SR) 0.4 MG CAP PO (20:31)
[2018-04-12] MEDS: LACTULOSE 30ML CUP PO (20:31)
[2018-04-12] MEDS: RIFAXIMIN 550 MG TAB PO (20:31)
[2018-04-13] MEDS: LEVOTHYROXINE 50 MCG TAB PO (06:05)
[2018-04-13] MEDS: PANTOPRAZOLE (EC) 40 MG TAB PO ×2 (06:05→18:16)
[2018-04-13 06:48] LABS: WHITE BLOOD COUNT 33.1 10^3/ul (4.8-10.8)
[2018-04-13 06:48] LABS: ABNORMAL IP MESSAGE 1; HEMATOCRIT 17.8 % (42.0-52.0); MEAN CORPUSCULAR HEMOGLOBIN 30.1 pg (29.0-33.0); MEAN CORPUSCULAR HGB CONC 36.5 g/dl (32.0-37.0); MEAN CORPUSCULAR VOLUME 82.4 fl (82.0-101.0); MEAN PLATELET VOLUME 12.7 fl (7.4-10.4); NUCLEATED RED BLOOD CELLS% 2.5 /100WBC (0.0-0.0); PLATELET COUNT 122 10^3/UL (140-415); POSITIVE DIFF @See below; RED BLOOD COUNT 2.16 10^6/ul (4.70-6.10); RED CELL DISTRIBUTION WIDTH 17.1 % (11.5-14.5)
[2018-04-13 06:56] LABS: INR 2.78; PROTIME 30.1 Sec (11.9-14.9); PT RATIO 2.4
[2018-04-13 07:29] LABS: ALANINE AMINOTRANSFERASE 50 IU/L (13-69); ALBUMIN 2.3 g/dl (3.3-4.9); ALBUMIN/GLOBULIN RATIO 0.71; ALKALINE PHOSPHATASE 116 IU/L (42-121); ANION GAP 16 (5-13); ASPARTATE AMINO TRANSFERASE 76 IU/L (15-46); BILIRUBIN,INDIRECT 1.9 mg/dl (0-1.1); BILIRUBIN,TOTAL 26.4 mg/dl (0.2-1.3); BLOOD UREA NITROGEN 58 mg/dl (7-20); CALCIUM 7.3 mg/dl (8.4-10.2); CARBON DIOXIDE 23 mmol/L (21-31); CHLORIDE 100 mmol/L (97-110); CREATININE 4.28 mg/dl (0.61-1.24); Estimated GFR 17 mL/min (>60); GLUCOSE 80 mg/dl (70-220); SODIUM 139 mmol/L (135-144); TOTAL PROTEIN 5.5 g/dl (6.1-8.1)
[2018-04-13 07:31] LABS: POTASSIUM 2.7 mmol/L (3.5-5.1)
[2018-04-13 07:39] LABS: ADD MAN DIFF? YES; HEMOGLOBIN 6.5 g/dl (14.0-18.0)
[2018-04-13 07:40] LABS: PARTIAL THROMBOPLASTIN TIME 125.4 Sec (23.0-35.0)
[2018-04-13] MEDS: URSODIOL 300 MG CAP PO ×2 (08:18→20:20)
[2018-04-13] MEDS: FINASTERIDE 5 MG TAB PO (08:18)
[2018-04-13] MEDS: RIFAXIMIN 550 MG TAB PO ×2 (08:18→20:20)
[2018-04-13] MEDS: POTASSIUM CHLORIDE (SR) 20 MEQ TAB PO (08:18)
[2018-04-13] MEDS: LACTULOSE 30ML CUP PO ×2 (08:18→20:20)
[2018-04-13] MEDS: FOLIC ACID 1 MG TAB PO (08:18)
[2018-04-13] MEDS: AMIODARONE 200 MG TAB PO (08:19)
[2018-04-13] MEDS: BALSAM PERU/CASTOR OIL 60 GM TUBE TOP (08:19)
[2018-04-13 08:29] LABS: MAGNESIUM 2.2 mg/dl (1.7-2.5)
[2018-04-13 08:29] LABS: PHOSPHORUS 3.1 mg/dl (2.5-4.9)
[2018-04-13 08:55] LABS: PATH REVIEW? YES; SEGMENTED NEUTROPHILS (M) % 85 % (39-77)
[2018-04-13 08:56] LABS: ANISOCYTOSIS 2+ (0-0); BAND NEUTROPHILS #M 0.6 10^3/ul (0.0-0.6); BAND NEUTROPHILS % (M) 2 % (0-4); BASOPHIL #M 0.3 10^3/ul (0.0-0.0); BASOPHILS % (M) 1 % (0-2); EOSINOPHILS % (M) 2 % (0-7); ERYTHROBLAST% (NRBC) (M) 13 % (0-0); GIANT THROMBO% (M) 3 % (0-0); LYMPHOCYTES #M 1.6 10^3/ul (0.8-2.9); LYMPHOCYTES % (M) 5 % (15-51); MONOCYTE #M 0.3 10^3/ul (0.3-0.9); MONOCYTES % (M) 1 % (0-11); MYELOCYTES #M 0.6 10^3/ul (0.0-0.0); MYELOCYTES % (M) 2 % (0-0); PLATELET ESTIMATE DECREASED; REACTIVE LYMPHOCYTES #M 0.6 10^3/ul (0.0-0.0); REACTIVE LYMPHOCYTES% (M) 2 % (0-0); SEG NEUT #M 28.3 10^3/ul (1.6-7.5); SMUDGE%M 4 % (0-0); TARGET CELLS 2+ (0-0)
[2018-04-13 12:58] LABS: AHG CROSSMATCH 1 5
[2018-04-13] MEDS: HEPARIN 1000 UNITS/ML 10 ML INJ CATHETER (16:03)
[2018-04-13] MEDS: HYDROmorphONE 0.5 MG/0.5 ML SYG IV ×2 (16:48→21:21)
[2018-04-13] MEDS: TAMSULOSIN (SR) 0.4 MG CAP PO (20:20)
[2018-04-14] MEDS: LEVOTHYROXINE 50 MCG TAB PO (06:03)
[2018-04-14] MEDS: PANTOPRAZOLE (EC) 40 MG TAB PO ×2 (06:03→17:52)
[2018-04-14 06:13] LABS: ADD MAN DIFF? NO
[2018-04-14 06:16] LABS: WHITE BLOOD COUNT 27.2 10^3/ul (4.8-10.8)
[2018-04-14 06:16] LABS: ABNORMAL IP MESSAGE 1; BASOPHIL # 0.1 10^3/ul (0.0-0.1); BASOPHILS % 0.4 % (0.0-2.0); EOSINOPHILS # 0.4 10^3/ul (0.0-0.5); EOSINOPHILS % 1.4 % (0.0-7.0); HEMATOCRIT 20.4 % (42.0-52.0); HEMOGLOBIN 7.4 g/dl (14.0-18.0); LYMPHOCYTES # 1.2 10^3/ul (0.8-2.9); LYMPHOCYTES % 4.5 % (15.0-51.0); MEAN CORPUSCULAR HGB CONC 36.3 g/dl (32.0-37.0); MEAN CORPUSCULAR VOLUME 82.6 fl (82.0-101.0); MEAN PLATELET VOLUME 13.2 fl (7.4-10.4); MONOCYTES % 7.5 % (0.0-11.0); NEUTROPHIL # 22.3 10^3/ul (1.6-7.5); NEUTROPHILS % 82.1 % (39.0-77.0); NUCLEATED RED BLOOD CELLS% 3.5 /100WBC (0.0-0.0); PLATELET COUNT 122 10^3/UL (140-415); POSITIVE DIFF @See below; RED BLOOD COUNT 2.47 10^6/ul (4.70-6.10); RED CELL DISTRIBUTION WIDTH 16.7 % (11.5-14.5)
[2018-04-14 06:36] LABS: ANION GAP 11 (5-13); BLOOD UREA NITROGEN 32 mg/dl (7-20); CALCIUM 7.5 mg/dl (8.4-10.2); CARBON DIOXIDE 27 mmol/L (21-31); CHLORIDE 105 mmol/L (97-110); CREATININE 2.63 mg/dl (0.61-1.24); Estimated GFR 30 mL/min (>60); GLUCOSE 74 mg/dl (70-220); MAGNESIUM 2.1 mg/dl (1.7-2.5); PHOSPHORUS 2.9 mg/dl (2.5-4.9); POTASSIUM 3.6 mmol/L (3.5-5.1); SODIUM 143 mmol/L (135-144)
[2018-04-14] MEDS: URSODIOL 300 MG CAP PO ×2 (08:52→21:43)
[2018-04-14] MEDS: LACTULOSE 30ML CUP PO ×2 (08:52→21:43)
[2018-04-14] MEDS: FINASTERIDE 5 MG TAB PO (08:52)
[2018-04-14] MEDS: RIFAXIMIN 550 MG TAB PO ×2 (08:52→21:43)
[2018-04-14] MEDS: AMIODARONE 200 MG TAB PO (08:53)
[2018-04-14] MEDS: FOLIC ACID 1 MG TAB PO (10:16)
[2018-04-14] MEDS: BALSAM PERU/CASTOR OIL 60 GM TUBE TOP (10:17)
[2018-04-14] MEDS: HYDROmorphONE 0.5 MG/0.5 ML SYG IV (14:13)
[2018-04-14] MEDS: LORAZEPAM 2 MG INJ IV (15:04)
[2018-04-14] MEDS: IOHEXOL 300MG/ML 30 ML BTL (20:07)
[2018-04-14] MEDS: LIDOCAINE 1% (MPF) 5 ML VIAL (20:07)
[2018-04-14 21:16] LABS: PLATELET ANTIBODY - IGA POSITIVE (NEGATIVE); PLATELET ANTIBODY - IGG POSITIVE (NEGATIVE); PLATELET ANTIBODY - IGM POSITIVE (NEGATIVE)
[2018-04-14] MEDS: TAMSULOSIN (SR) 0.4 MG CAP PO (21:43)
[2018-04-15] MEDS: HYDROmorphONE 0.5 MG/0.5 ML SYG IV ×4 (01:32→20:35)
[2018-04-15] MEDS: PANTOPRAZOLE (EC) 40 MG TAB PO ×2 (05:15→18:06)
[2018-04-15 06:01] LABS: ADD MAN DIFF? NO
[2018-04-15 06:04] LABS: ABNORMAL IP MESSAGE 1; BASOPHIL # 0.3 10^3/ul (0.0-0.1); BASOPHILS % 0.9 % (0.0-2.0); EOSINOPHILS # 0.4 10^3/ul (0.0-0.5); EOSINOPHILS % 1.4 % (0.0-7.0); HEMATOCRIT 20.4 % (42.0-52.0); HEMOGLOBIN 7.4 g/dl (14.0-18.0); LYMPHOCYTES % 3.6 % (15.0-51.0); MEAN CORPUSCULAR HEMOGLOBIN 29.7 pg (29.0-33.0); MEAN CORPUSCULAR HGB CONC 36.3 g/dl (32.0-37.0); MEAN CORPUSCULAR VOLUME 81.9 fl (82.0-101.0); MEAN PLATELET VOLUME 13.5 fl (7.4-10.4); MONOCYTE # 2.3 10^3/ul (0.3-0.9); MONOCYTES % 7.9 % (0.0-11.0); NEUTROPHIL # 24.3 10^3/ul (1.6-7.5); NEUTROPHILS % 83.2 % (39.0-77.0); NUCLEATED RED BLOOD CELLS # 1.2 10^3/ul (0.0-0.0); PLATELET COUNT 119 10^3/UL (140-415); POSITIVE DIFF @See below; RED BLOOD COUNT 2.49 10^6/ul (4.70-6.10); RED CELL DISTRIBUTION WIDTH 17.2 % (11.5-14.5)
[2018-04-15 06:04] LABS: WHITE BLOOD COUNT 29.2 10^3/ul (4.8-10.8)
[2018-04-15 06:37] LABS: ALANINE AMINOTRANSFERASE 55 IU/L (13-69); ALKALINE PHOSPHATASE 128 IU/L (42-121); ASPARTATE AMINO TRANSFERASE 85 IU/L (15-46); BILIRUBIN,INDIRECT 1.9 mg/dl (0-1.1); TOTAL PROTEIN 5.5 g/dl (6.1-8.1)
[2018-04-15 06:38] LABS: BILIRUBIN,TOTAL 27.5 mg/dl (0.2-1.3)
[2018-04-15 06:55] LABS: ANION GAP 15 (5-13); BLOOD UREA NITROGEN 44 mg/dl (7-20); CALCIUM 7.4 mg/dl (8.4-10.2); CARBON DIOXIDE 23 mmol/L (21-31); CHLORIDE 105 mmol/L (97-110); CREATININE 3.43 mg/dl (0.61-1.24); Estimated GFR 22 mL/min (>60); GLUCOSE 83 mg/dl (70-220); MAGNESIUM 2.2 mg/dl (1.7-2.5); PHOSPHORUS 3.4 mg/dl (2.5-4.9); POTASSIUM 3.2 mmol/L (3.5-5.1); SODIUM 143 mmol/L (135-144)
[2018-04-15] MEDS: LEVOTHYROXINE 50 MCG TAB PO (06:58)
[2018-04-15 07:57] LABS: LIPASE 762 U/L (23-300)
[2018-04-15] MEDS: LACTULOSE 30ML CUP PO ×2 (08:50→20:19)
[2018-04-15] MEDS: RIFAXIMIN 550 MG TAB PO ×2 (08:51→20:19)
[2018-04-15] MEDS: FOLIC ACID 1 MG TAB PO (08:51)
[2018-04-15] MEDS: FINASTERIDE 5 MG TAB PO (08:51)
[2018-04-15] MEDS: URSODIOL 300 MG CAP PO ×2 (08:51→20:19)
[2018-04-15] MEDS: BALSAM PERU/CASTOR OIL 60 GM TUBE TOP (08:52)
[2018-04-15] MEDS: AMIODARONE 200 MG TAB PO ×2 (08:53→19:38)
[2018-04-15] MEDS: POTASSIUM CHLORIDE (SR) 20 MEQ TAB PO (08:53)
[2018-04-15] MEDS: ALBUMIN HUMAN 25% 100 ML IV (15:42)
[2018-04-15 16:54] LABS: INR 2.14; PROTIME 24.4 Sec (11.9-14.9); PT RATIO 1.9
[2018-04-15] MEDS: HEPARIN 1000 UNITS/ML 10 ML INJ CATHETER (17:01)
[2018-04-15] MEDS: TAMSULOSIN (SR) 0.4 MG CAP PO (20:19)
[2018-04-16] MEDS: HYDROmorphONE 0.5 MG/0.5 ML SYG IV ×3 (00:28→21:17)
[2018-04-16] MEDS: LEVOTHYROXINE 50 MCG TAB PO (06:02)
[2018-04-16] MEDS: PANTOPRAZOLE (EC) 40 MG TAB PO ×2 (06:02→18:34)
[2018-04-16 06:39] LABS: ABNORMAL IP MESSAGE 1; HEMATOCRIT 17.1 % (42.0-52.0); MEAN CORPUSCULAR HEMOGLOBIN 30.3 pg (29.0-33.0); MEAN CORPUSCULAR HGB CONC 36.8 g/dl (32.0-37.0); MEAN CORPUSCULAR VOLUME 82.2 fl (82.0-101.0); MEAN PLATELET VOLUME 13.7 fl (7.4-10.4); PLATELET COUNT 121 10^3/UL (140-415); POSITIVE DIFF @See below; RED BLOOD COUNT 2.08 10^6/ul (4.70-6.10); RED CELL DISTRIBUTION WIDTH 17.3 % (11.5-14.5)
[2018-04-16 06:39] LABS: WHITE BLOOD COUNT 28.5 10^3/ul (4.8-10.8)
[2018-04-16 06:52] LABS: HEMOGLOBIN 6.3 g/dl (14.0-18.0)
[2018-04-16 06:53] LABS: ADD MAN DIFF? YES
[2018-04-16 07:12] LABS: ANION GAP 10 (5-13); BLOOD UREA NITROGEN 41 mg/dl (7-20); CALCIUM 7.5 mg/dl (8.4-10.2); CARBON DIOXIDE 24 mmol/L (21-31); CHLORIDE 105 mmol/L (97-110); CREATININE 2.66 mg/dl (0.61-1.24); Estimated GFR 29 mL/min (>60); GLUCOSE 85 mg/dl (70-220); MAGNESIUM 2.1 mg/dl (1.7-2.5); PHOSPHORUS 2.6 mg/dl (2.5-4.9); SODIUM 139 mmol/L (135-144)
[2018-04-16] MEDS: URSODIOL 300 MG CAP PO ×2 (09:06→21:12)
[2018-04-16] MEDS: FINASTERIDE 5 MG TAB PO (09:06)
[2018-04-16] MEDS: FOLIC ACID 1 MG TAB PO (09:06)
[2018-04-16] MEDS: BALSAM PERU/CASTOR OIL 60 GM TUBE TOP (09:06)
[2018-04-16] MEDS: LACTULOSE 30ML CUP PO ×2 (09:06→21:12)
[2018-04-16] MEDS: RIFAXIMIN 550 MG TAB PO ×2 (09:06→21:11)
[2018-04-16] MEDS: AMIODARONE 200 MG TAB PO (09:07)
[2018-04-16] MEDS: SOD CHLORIDE 0.9% 250 ML IV* (09:07)
[2018-04-16 09:42] LABS: ANISOCYTOSIS 2+ (0-0); BAND NEUTROPHILS #M 0.8 10^3/ul (0.0-0.6); BAND NEUTROPHILS % (M) 3 % (0-4); BASOPHIL #M 0.2 10^3/ul (0.0-0.0); BASOPHILS % (M) 1 % (0-2); BURR CELLS 1+ (0-0); EOSINOPHILS % (M) 1 % (0-7); ERYTHROBLAST% (NRBC) (M) 12 % (0-0); GIANT THROMBO% (M) 3 % (0-0); LYMPHOCYTES #M 1.1 10^3/ul (0.8-2.9); LYMPHOCYTES % (M) 4 % (15-51); MONOCYTE #M 1.4 10^3/ul (0.3-0.9); MONOCYTES % (M) 5 % (0-11); MYELOCYTES #M 0.2 10^3/ul (0.0-0.0); MYELOCYTES % (M) 1 % (0-0); PLATELET ESTIMATE DECREASED; POIKILOCYTOSIS 1+ (0-0); POLYCHROMASIA 1+ (0-0); SEG NEUT #M 24.5 10^3/ul (1.6-7.5); SEGMENTED NEUTROPHILS (M) % 85 % (39-77); SMUDGE%M 3 % (0-0); TARGET CELLS 1+ (0-0)
[2018-04-16 10:14] LABS: SICKLE CELL FEW (0-0)
[2018-04-16 11:28] LABS: AHG CROSSMATCH 1 3
[2018-04-16] MEDS: METHADONE 5 MG TAB PO (11:40)
[2018-04-16] MEDS: TAMSULOSIN (SR) 0.4 MG CAP PO (21:12)
[2018-04-17] MEDS: HYDROmorphONE 0.5 MG/0.5 ML SYG IV ×3 (03:46→23:35)
[2018-04-17 06:29] LABS: ABNORMAL IP MESSAGE 1; HEMATOCRIT 19.1 % (42.0-52.0); MEAN CORPUSCULAR HEMOGLOBIN 30.2 pg (29.0-33.0); MEAN CORPUSCULAR HGB CONC 36.6 g/dl (32.0-37.0); MEAN CORPUSCULAR VOLUME 82.3 fl (82.0-101.0); MEAN PLATELET VOLUME 13.3 fl (7.4-10.4); NUCLEATED RED BLOOD CELLS% 3.5 /100WBC (0.0-0.0); PLATELET COUNT 108 10^3/UL (140-415); POSITIVE DIFF @See below; RED BLOOD COUNT 2.32 10^6/ul (4.70-6.10); RED CELL DISTRIBUTION WIDTH 16.9 % (11.5-14.5)
[2018-04-17 06:29] LABS: WHITE BLOOD COUNT 26.5 10^3/ul (4.8-10.8)
[2018-04-17] MEDS: PANTOPRAZOLE (EC) 40 MG TAB PO ×2 (06:31→17:40)
[2018-04-17] MEDS: LEVOTHYROXINE 50 MCG TAB PO (06:31)
[2018-04-17 06:47] LABS: ADD MAN DIFF? YES
[2018-04-17 07:21] LABS: ALANINE AMINOTRANSFERASE 52 IU/L (13-69); ALBUMIN 2.2 g/dl (3.3-4.9); ALBUMIN/GLOBULIN RATIO 0.59; ALKALINE PHOSPHATASE 124 IU/L (42-121); ANION GAP 14 (5-13); ASPARTATE AMINO TRANSFERASE 96 IU/L (15-46); BILIRUBIN,INDIRECT 2.3 mg/dl (0-1.1); BLOOD UREA NITROGEN 52 mg/dl (7-20); CALCIUM 7.4 mg/dl (8.4-10.2); CARBON DIOXIDE 19 mmol/L (21-31); CHLORIDE 108 mmol/L (97-110); CREATININE 3.26 mg/dl (0.61-1.24); Estimated GFR 23 mL/min (>60); GLUCOSE 84 mg/dl (70-220); POTASSIUM 3.4 mmol/L (3.5-5.1); SODIUM 141 mmol/L (135-144); TOTAL PROTEIN 5.9 g/dl (6.1-8.1)
[2018-04-17 07:36] LABS: BILIRUBIN,TOTAL 27.8 mg/dl (0.2-1.3)
[2018-04-17 08:02] LABS: ANISOCYTOSIS 2+ (0-0); BURR CELLS 1+ (0-0); EOSINOPHILS % (M) 1 % (0-7); ERYTHROBLAST% (NRBC) (M) 2 % (0-0); GIANT THROMBO% (M) 4 % (0-0); LYMPHOCYTES #M 1.5 10^3/ul (0.8-2.9); LYMPHOCYTES % (M) 6 % (15-51); METAMYELOCYTES #M 0.2 10^3/ul (0.0-0.0); METAMYELOCYTES %M 1 % (0-0); MONOCYTE #M 2.1 10^3/ul (0.3-0.9); MONOCYTES % (M) 8 % (0-11); MYELOCYTES #M 0.5 10^3/ul (0.0-0.0); MYELOCYTES % (M) 2 % (0-0); OVALOCYTES 1+ (0-0); PLATELET ESTIMATE DECREASED; POIKILOCYTOSIS 1+ (0-0); POLYCHROMASIA 3+ (0-0); SEGMENTED NEUTROPHILS (M) % 82 % (39-77); SICKLE CELL 1+ (0-0); TARGET CELLS 2+ (0-0)
[2018-04-17] MEDS: RIFAXIMIN 550 MG TAB PO ×2 (08:50→21:30)
[2018-04-17] MEDS: URSODIOL 300 MG CAP PO ×2 (08:50→21:30)
[2018-04-17] MEDS: LACTULOSE 30ML CUP PO ×2 (08:50→21:30)
[2018-04-17] MEDS: AMIODARONE 200 MG TAB PO (08:51)
[2018-04-17] MEDS: FOLIC ACID 1 MG TAB PO (08:51)
[2018-04-17] MEDS: BALSAM PERU/CASTOR OIL 60 GM TUBE TOP (08:51)
[2018-04-17] MEDS: FINASTERIDE 5 MG TAB PO (08:51)
[2018-04-17] MEDS: METHADONE 5 MG TAB PO (12:54)
[2018-04-17] MEDS: TAMSULOSIN (SR) 0.4 MG CAP PO (21:30)
[2018-04-18] MEDS: PANTOPRAZOLE (EC) 40 MG TAB PO ×2 (05:35→17:39)
[2018-04-18] MEDS: LEVOTHYROXINE 50 MCG TAB PO (05:35)
[2018-04-18] MEDS: ALBUMIN HUMAN 25% 100 ML IV ×2 (09:22→10:28)
[2018-04-18 09:31] LABS: ABNORMAL IP MESSAGE 1; HEMATOCRIT 18.4 % (42.0-52.0); MEAN CORPUSCULAR HEMOGLOBIN 30.1 pg (29.0-33.0); MEAN CORPUSCULAR VOLUME 81.4 fl (82.0-101.0); MEAN PLATELET VOLUME 13.5 fl (7.4-10.4); NUCLEATED RED BLOOD CELLS% 2.9 /100WBC (0.0-0.0); PLATELET COUNT 130 10^3/UL (140-415); POSITIVE DIFF @See below; RED BLOOD COUNT 2.26 10^6/ul (4.70-6.10); RED CELL DISTRIBUTION WIDTH 16.9 % (11.5-14.5)
[2018-04-18 09:31] LABS: WHITE BLOOD COUNT 29.6 10^3/ul (4.8-10.8)
[2018-04-18 09:35] LABS: ADD MAN DIFF? YES
[2018-04-18 09:36] LABS: HEMOGLOBIN 6.8 g/dl (14.0-18.0)
[2018-04-18 09:59] LABS: ANION GAP 12 (5-13); BLOOD UREA NITROGEN 60 mg/dl (7-20); CALCIUM 7.2 mg/dl (8.4-10.2); CARBON DIOXIDE 22 mmol/L (21-31); CHLORIDE 104 mmol/L (97-110); CREATININE 4.12 mg/dl (0.61-1.24); Estimated GFR 18 mL/min (>60); GLUCOSE 78 mg/dl (70-220); SODIUM 138 mmol/L (135-144)
[2018-04-18 10:06] LABS: ANISOCYTOSIS 2+ (0-0); BASOPHIL #M 0.2 10^3/ul (0.0-0.0); BASOPHILS % (M) 1 % (0-2); BURR CELLS 1+ (0-0); ERYTHROBLAST% (NRBC) (M) 9 % (0-0); GIANT THROMBO% (M) 1 % (0-0); LYMPHOCYTES #M 1.1 10^3/ul (0.8-2.9); LYMPHOCYTES % (M) 4 % (15-51); MONOCYTE #M 0.5 10^3/ul (0.3-0.9); MONOCYTES % (M) 2 % (0-11); MYELOCYTES #M 0.5 10^3/ul (0.0-0.0); MYELOCYTES % (M) 2 % (0-0); PLATELET ESTIMATE DECREASED; POIKILOCYTOSIS 2+ (0-0); SEGMENTED NEUTROPHILS (M) % 91 % (39-77); SICKLE CELL 1+ (0-0); SMUDGE%M 69 % (0-0); TARGET CELLS 2+ (0-0)
[2018-04-18] MEDS: HEPARIN 1000 UNITS/ML 10 ML INJ CATHETER (12:11)
[2018-04-18] MEDS: RIFAXIMIN 550 MG TAB PO ×2 (13:51→21:37)
[2018-04-18] MEDS: FOLIC ACID 1 MG TAB PO (13:52)
[2018-04-18] MEDS: AMIODARONE 200 MG TAB PO (13:52)
[2018-04-18] MEDS: FINASTERIDE 5 MG TAB PO (13:52)
[2018-04-18] MEDS: URSODIOL 300 MG CAP PO ×2 (13:52→21:37)
[2018-04-18] MEDS: LACTULOSE 30ML CUP PO ×2 (13:53→21:37)
[2018-04-18] MEDS: METHADONE 5 MG TAB PO (13:53)
[2018-04-18] MEDS: BALSAM PERU/CASTOR OIL 60 GM TUBE TOP (13:54)
[2018-04-18 15:32] LABS: HEMATOCRIT 24.7 % (42.0-52.0); HEMOGLOBIN 9.1 g/dl (14.0-18.0)
[2018-04-18] MEDS: HYDROmorphONE 0.5 MG/0.5 ML SYG IV (18:33)
[2018-04-18] MEDS: TAMSULOSIN (SR) 0.4 MG CAP PO (21:37)
[2018-04-19] MEDS: LEVOTHYROXINE 50 MCG TAB PO (06:08)
[2018-04-19] MEDS: PANTOPRAZOLE (EC) 40 MG TAB PO ×2 (06:08→17:57)
[2018-04-19] MEDS: FINASTERIDE 5 MG TAB PO (08:38)
[2018-04-19] MEDS: URSODIOL 300 MG CAP PO ×2 (08:38→21:19)
[2018-04-19] MEDS: LACTULOSE 30ML CUP PO ×2 (08:38→21:19)
[2018-04-19] MEDS: RIFAXIMIN 550 MG TAB PO ×2 (08:38→21:19)
[2018-04-19] MEDS: FOLIC ACID 1 MG TAB PO (08:38)
[2018-04-19] MEDS: BALSAM PERU/CASTOR OIL 60 GM TUBE TOP (08:39)
[2018-04-19] MEDS: AMIODARONE 200 MG TAB PO (08:39)
[2018-04-19 10:32] LABS: INR 1.93; PROTIME 22.5 Sec (11.9-14.9); PT RATIO 1.8
[2018-04-19] MEDS: METHADONE 5 MG TAB PO (11:04)
[2018-04-19] MEDS: HYDROmorphONE 0.5 MG/0.5 ML SYG IV (15:45)
[2018-04-19] MEDS: TAMSULOSIN (SR) 0.4 MG CAP PO (21:19)
[2018-04-20] MEDS: PANTOPRAZOLE (EC) 40 MG TAB PO ×2 (06:03→17:13)
[2018-04-20] MEDS: LEVOTHYROXINE 50 MCG TAB PO (06:03)
[2018-04-20 06:28] LABS: ABNORMAL IP MESSAGE 1; HEMATOCRIT 19.9 % (42.0-52.0); HEMOGLOBIN 7.4 g/dl (14.0-18.0); MEAN CORPUSCULAR HEMOGLOBIN 30.1 pg (29.0-33.0); MEAN CORPUSCULAR HGB CONC 37.2 g/dl (32.0-37.0); MEAN CORPUSCULAR VOLUME 80.9 fl (82.0-101.0); NUCLEATED RED BLOOD CELLS% 2.4 /100WBC (0.0-0.0); PLATELET COUNT 136 10^3/UL (140-415); POSITIVE DIFF @See below; RED BLOOD COUNT 2.46 10^6/ul (4.70-6.10); RED CELL DISTRIBUTION WIDTH 16.8 % (11.5-14.5)
[2018-04-20 06:28] LABS: WHITE BLOOD COUNT 27.8 10^3/ul (4.8-10.8)
[2018-04-20 06:39] LABS: ADD MAN DIFF? YES
[2018-04-20 06:49] LABS: ALANINE AMINOTRANSFERASE 51 IU/L (13-69); ALBUMIN 2.3 g/dl (3.3-4.9); ALBUMIN/GLOBULIN RATIO 0.74; ALKALINE PHOSPHATASE 122 IU/L (42-121); ANION GAP 14 (5-13); ASPARTATE AMINO TRANSFERASE 72 IU/L (15-46); BLOOD UREA NITROGEN 46 mg/dl (7-20); CALCIUM 7.5 mg/dl (8.4-10.2); CARBON DIOXIDE 25 mmol/L (21-31); CHLORIDE 99 mmol/L (97-110); Estimated GFR 21 mL/min (>60); GLUCOSE 90 mg/dl (70-220); SODIUM 138 mmol/L (135-144); TOTAL PROTEIN 5.4 g/dl (6.1-8.1)
[2018-04-20 06:52] LABS: ALANINE AMINOTRANSFERASE 48 IU/L (13-69); ALBUMIN 2.3 g/dl (3.3-4.9); ALKALINE PHOSPHATASE 120 IU/L (42-121); ASPARTATE AMINO TRANSFERASE 78 IU/L (15-46); LIPASE 596 U/L (23-300); TOTAL PROTEIN 5.7 g/dl (6.1-8.1)
[2018-04-20 07:00] LABS: AMMONIA 14 umol/l (9-30)
[2018-04-20 07:02] LABS: BILIRUBIN,INDIRECT 3.1 mg/dl (0-1.1)
[2018-04-20 07:04] LABS: BILIRUBIN,TOTAL 28.9 mg/dl (0.2-1.3)
[2018-04-20 07:09] LABS: BILIRUBIN,TOTAL 30.2 mg/dl (0.2-1.3)
[2018-04-20 07:11] LABS: BILIRUBIN,INDIRECT 3.5 mg/dl (0-1.1)
[2018-04-20] MEDS: URSODIOL 300 MG CAP PO ×2 (08:37→21:18)
[2018-04-20] MEDS: LACTULOSE 30ML CUP PO ×2 (08:38→21:17)
[2018-04-20] MEDS: FOLIC ACID 1 MG TAB PO (08:38)
[2018-04-20] MEDS: AMIODARONE 200 MG TAB PO (08:38)
[2018-04-20] MEDS: FINASTERIDE 5 MG TAB PO (08:38)
[2018-04-20] MEDS: RIFAXIMIN 550 MG TAB PO ×2 (08:38→21:18)
[2018-04-20] MEDS: BALSAM PERU/CASTOR OIL 60 GM TUBE TOP (09:03)
[2018-04-20] MEDS: POTASSIUM CHLORIDE (SR) 20 MEQ TAB PO (09:03)
[2018-04-20] MEDS: ALBUMIN HUMAN 25% 100 ML IV ×2 (09:21→10:40)
[2018-04-20 09:50] LABS: ANISOCYTOSIS 2+ (0-0); EOSINOPHILS % (M) 2 % (0-7); ERYTHROBLAST% (NRBC) (M) 4 % (0-0); HYPOCHROMASIA 1+ (0-0); LYMPHOCYTES #M 2.2 10^3/ul (0.8-2.9); LYMPHOCYTES % (M) 8 % (15-51); METAMYELOCYTES #M 0.5 10^3/ul (0.0-0.0); METAMYELOCYTES %M 2 % (0-0); MONOCYTE #M 1.1 10^3/ul (0.3-0.9); MONOCYTES % (M) 4 % (0-11); MYELOCYTES #M 0.5 10^3/ul (0.0-0.0); MYELOCYTES % (M) 2 % (0-0); PLATELET ESTIMATE DECREASED; POLYCHROMASIA 1+ (0-0); REACTIVE LYMPHOCYTES #M 0.8 10^3/ul (0.0-0.0); REACTIVE LYMPHOCYTES% (M) 3 % (0-0); SEGMENTED NEUTROPHILS (M) % 79 % (39-77); SMUDGE%M 5 % (0-0); TARGET CELLS 2+ (0-0)
[2018-04-20 10:59] LABS: INR 1.74; PROTIME 20.7 Sec (11.9-14.9); PT RATIO 1.6
[2018-04-20] MEDS: METHADONE 5 MG TAB PO (11:20)
[2018-04-20] MEDS: HEPARIN 1000 UNITS/ML 10 ML INJ CATHETER (12:26)
[2018-04-20] MEDS ORDERED: HEPARIN 1000 UNITS/ML 10 ML INJ (13:45)
[2018-04-20] MEDS ORDERED: SOD CHLORIDE 0.9% 500 ML (13:45)
[2018-04-20] MEDS ORDERED: LIDOCAINE 2% (MDV) 20 ML INJ ×3 (13:45→13:46)
[2018-04-20] MEDS ORDERED: MIDAZOLAM 1 MG/ML 2 ML INJ (14:15)
[2018-04-20] MEDS ORDERED: FENTAnyl 50 MCG/ML VIAL (14:15)
[2018-04-20] MEDS: TAMSULOSIN (SR) 0.4 MG CAP PO (21:18)
[2018-04-21] MEDS: PANTOPRAZOLE (EC) 40 MG TAB PO ×2 (06:11→17:42)
[2018-04-21] MEDS: LEVOTHYROXINE 50 MCG TAB PO (06:11)
[2018-04-21] MEDS: FOLIC ACID 1 MG TAB PO (09:35)
[2018-04-21] MEDS: POTASSIUM CHLORIDE (SR) 20 MEQ TAB PO (09:35)
[2018-04-21] MEDS: RIFAXIMIN 550 MG TAB PO ×2 (09:36→20:49)
[2018-04-21] MEDS: URSODIOL 300 MG CAP PO ×2 (09:36→20:49)
[2018-04-21] MEDS: FINASTERIDE 5 MG TAB PO (09:36)
[2018-04-21] MEDS: AMIODARONE 200 MG TAB PO (09:36)
[2018-04-21] MEDS: LACTULOSE 30ML CUP PO ×2 (09:36→20:49)
[2018-04-21] MEDS: BALSAM PERU/CASTOR OIL 60 GM TUBE TOP (12:11)
[2018-04-21] MEDS: METHADONE 5 MG TAB PO (12:11)
[2018-04-21] MEDS: TAMSULOSIN (SR) 0.4 MG CAP PO (20:49)
[2018-04-22] MEDS: LEVOTHYROXINE 50 MCG TAB PO (05:24)
[2018-04-22] MEDS: PANTOPRAZOLE (EC) 40 MG TAB PO ×2 (05:24→18:17)
[2018-04-22] MEDS: FINASTERIDE 5 MG TAB PO (09:00)
[2018-04-22] MEDS: LACTULOSE 30ML CUP PO ×2 (09:00→20:25)
[2018-04-22] MEDS: BALSAM PERU/CASTOR OIL 60 GM TUBE TOP (09:00)
[2018-04-22] MEDS: FOLIC ACID 1 MG TAB PO (09:00)
[2018-04-22] MEDS: RIFAXIMIN 550 MG TAB PO ×2 (09:00→20:25)
[2018-04-22] MEDS: URSODIOL 300 MG CAP PO ×2 (09:00→20:25)
[2018-04-22] MEDS: HYDROmorphONE 0.5 MG/0.5 ML SYG IV ×2 (10:14→17:26)
[2018-04-22] MEDS: METHADONE 5 MG TAB PO (11:20)
[2018-04-22 11:42] LABS: PROCALCITONIN 2.55 ng/mL (<0.10)
[2018-04-22] MEDS: HEPARIN 1000 UNITS/ML 10 ML INJ CATHETER (13:49)
[2018-04-22] MEDS: AMIODARONE 200 MG TAB PO (15:26)
[2018-04-22] MEDS: POTASSIUM CHLORIDE (SR) 20 MEQ TAB PO (15:26)
[2018-04-22] MEDS: TAMSULOSIN (SR) 0.4 MG CAP PO (20:25)
[2018-04-23] MEDS: LEVOTHYROXINE 50 MCG TAB PO (05:22)
[2018-04-23] MEDS: PANTOPRAZOLE (EC) 40 MG TAB PO ×2 (05:22→18:23)
[2018-04-23] MEDS: FOLIC ACID 1 MG TAB PO (09:00)
[2018-04-23] MEDS: LACTULOSE 30ML CUP PO ×2 (09:00→21:13)
[2018-04-23] MEDS: RIFAXIMIN 550 MG TAB PO ×2 (09:00→21:13)
[2018-04-23] MEDS: FINASTERIDE 5 MG TAB PO (09:00)
[2018-04-23] MEDS: POTASSIUM CHLORIDE (SR) 20 MEQ TAB PO (09:01)
[2018-04-23] MEDS: AMIODARONE 200 MG TAB PO (09:01)
[2018-04-23] MEDS: URSODIOL 300 MG CAP PO ×2 (09:01→21:13)
[2018-04-23] MEDS: BALSAM PERU/CASTOR OIL 60 GM TUBE TOP (09:03)
[2018-04-23] MEDS: HYDROmorphONE 0.5 MG/0.5 ML SYG IV ×2 (09:33→23:51)
[2018-04-23] MEDS: METHADONE 5 MG TAB PO (11:45)
[2018-04-23] MEDS: DICLOFENAC SODIUM 1% GEL 100 GM TUBE TP ×3 (14:07→21:13)
[2018-04-23] MEDS: TAMSULOSIN (SR) 0.4 MG CAP PO (21:13)
[2018-04-24] MEDS: PANTOPRAZOLE (EC) 40 MG TAB PO ×2 (06:26→18:46)
[2018-04-24] MEDS: LEVOTHYROXINE 50 MCG TAB PO (06:26)
[2018-04-24 08:12] LABS: ABNORMAL IP MESSAGE 1; POSITIVE DIFF @See below; RED CELL DISTRIBUTION WIDTH 16.7 % (11.5-14.5)
[2018-04-24 08:25] LABS: HEMATOCRIT 17.2 % (42.0-52.0); MEAN CORPUSCULAR HEMOGLOBIN 30.5 pg (29.0-33.0); MEAN CORPUSCULAR VOLUME 80.8 fl (82.0-101.0); MEAN PLATELET VOLUME 12.8 fl (7.4-10.4); NUCLEATED RED BLOOD CELLS% 0.5 /100WBC (0.0-0.0); PLATELET COUNT 153 10^3/UL (140-415); RED BLOOD COUNT 2.13 10^6/ul (4.70-6.10)
[2018-04-24 08:25] LABS: WHITE BLOOD COUNT 30.9 10^3/ul (4.8-10.8)
[2018-04-24 08:29] LABS: ANION GAP 12 (5-13); BLOOD UREA NITROGEN 35 mg/dl (7-20); CALCIUM 7.7 mg/dl (8.4-10.2); CARBON DIOXIDE 24 mmol/L (21-31); CHLORIDE 101 mmol/L (97-110); CREATININE 2.84 mg/dl (0.61-1.24); Estimated GFR 27 mL/min (>60); GLUCOSE 92 mg/dl (70-220); MAGNESIUM 2.1 mg/dl (1.7-2.5); PHOSPHORUS 3.2 mg/dl (2.5-4.9); POTASSIUM 4.2 mmol/L (3.5-5.1); SODIUM 137 mmol/L (135-144)
[2018-04-24 08:33] LABS: ADD MAN DIFF? YES; HEMOGLOBIN 6.5 g/dl (14.0-18.0); MEAN CORPUSCULAR HGB CONC 37.8 g/dl (32.0-37.0)
[2018-04-24] MEDS: URSODIOL 300 MG CAP PO ×2 (08:52→21:39)
[2018-04-24] MEDS: FOLIC ACID 1 MG TAB PO (08:52)
[2018-04-24] MEDS: AMIODARONE 200 MG TAB PO (08:52)
[2018-04-24] MEDS: FINASTERIDE 5 MG TAB PO (08:53)
[2018-04-24] MEDS: RIFAXIMIN 550 MG TAB PO ×2 (08:53→21:39)
[2018-04-24] MEDS: LACTULOSE 30ML CUP PO ×2 (08:54→21:39)
[2018-04-24] MEDS: POTASSIUM CHLORIDE (SR) 20 MEQ TAB PO (08:54)
[2018-04-24] MEDS: BALSAM PERU/CASTOR OIL 60 GM TUBE TOP (08:55)
[2018-04-24] MEDS: DICLOFENAC SODIUM 1% GEL 100 GM TUBE TP ×4 (08:55→21:39)
[2018-04-24 09:10] LABS: ANISOCYTOSIS 2+ (0-0); BASOPHIL #M 0.3 10^3/ul (0.0-0.0); BASOPHILS % (M) 1 % (0-2); BURR CELLS 1+ (0-0); EOSINOPHILS % (M) 1 % (0-7); HYPOCHROMASIA 1+ (0-0); LYMPHOCYTES % (M) 10 % (15-51); MONOCYTE #M 1.2 10^3/ul (0.3-0.9); MONOCYTES % (M) 4 % (0-11); PLATELET ESTIMATE NORMAL; POIKILOCYTOSIS 2+ (0-0); SEGMENTED NEUTROPHILS (M) % 84 % (39-77); SMUDGE%M 2 % (0-0); TARGET CELLS 2+ (0-0)
[2018-04-24] MEDS: HYDROmorphONE 0.5 MG/0.5 ML SYG IV ×2 (09:20→20:07)
[2018-04-24] MEDS: METHADONE 5 MG TAB PO (11:35)
[2018-04-24] MEDS: ALBUMIN HUMAN 25% 100 ML IV (16:12)
[2018-04-24] MEDS: HEPARIN 1000 UNITS/ML 10 ML INJ CATHETER (18:44)
[2018-04-24] MEDS: TAMSULOSIN (SR) 0.4 MG CAP PO (21:39)
[2018-04-25] MEDS: HYDROmorphONE 0.5 MG/0.5 ML SYG IV (04:34)
[2018-04-25] MEDS: PANTOPRAZOLE (EC) 40 MG TAB PO ×2 (06:23→17:08)
[2018-04-25] MEDS: LEVOTHYROXINE 50 MCG TAB PO (06:23)
[2018-04-25] MEDS: LACTULOSE 30ML CUP PO ×2 (08:27→20:33)
[2018-04-25] MEDS: POTASSIUM CHLORIDE (SR) 20 MEQ TAB PO (08:28)
[2018-04-25] MEDS: FOLIC ACID 1 MG TAB PO (08:28)
[2018-04-25] MEDS: AMIODARONE 200 MG TAB PO (08:28)
[2018-04-25] MEDS: URSODIOL 300 MG CAP PO ×2 (08:28→20:33)
[2018-04-25] MEDS: FINASTERIDE 5 MG TAB PO (08:29)
[2018-04-25] MEDS: RIFAXIMIN 550 MG TAB PO ×2 (08:29→20:33)
[2018-04-25] MEDS: BALSAM PERU/CASTOR OIL 60 GM TUBE TOP (08:30)
[2018-04-25] MEDS: DICLOFENAC SODIUM 1% GEL 100 GM TUBE TP ×4 (08:30→20:34)
[2018-04-25 08:54] LABS: WHITE BLOOD COUNT 32.8 10^3/ul (4.8-10.8)
[2018-04-25 08:54] LABS: ABNORMAL IP MESSAGE 1; HEMATOCRIT 14.8 % (42.0-52.0); MEAN CORPUSCULAR HEMOGLOBIN 30.6 pg (29.0-33.0); MEAN CORPUSCULAR VOLUME 80.9 fl (82.0-101.0); MEAN PLATELET VOLUME 12.9 fl (7.4-10.4); NUCLEATED RED BLOOD CELLS% 0.4 /100WBC (0.0-0.0); PLATELET COUNT 129 10^3/UL (140-415); POSITIVE DIFF @See below; RED BLOOD COUNT 1.83 10^6/ul (4.70-6.10); RED CELL DISTRIBUTION WIDTH 16.8 % (11.5-14.5)
[2018-04-25 08:59] LABS: MEAN CORPUSCULAR HGB CONC 37.8 g/dl (32.0-37.0)
[2018-04-25 09:01] LABS: ADD MAN DIFF? YES; HEMOGLOBIN 5.6 g/dl (14.0-18.0)
[2018-04-25 09:36] LABS: ANISOCYTOSIS 3+ (0-0); BASOPHIL #M 0.6 10^3/ul (0.0-0.0); BASOPHILS % (M) 2 % (0-2); BURR CELLS 1+ (0-0); EOSINOPHILS % (M) 4 % (0-7); GIANT THROMBO% (M) 4 % (0-0); LYMPHOCYTES #M 1.3 10^3/ul (0.8-2.9); LYMPHOCYTES % (M) 4 % (15-51); MONOCYTE #M 1.6 10^3/ul (0.3-0.9); MONOCYTES % (M) 5 % (0-11); MYELOCYTES #M 0.3 10^3/ul (0.0-0.0); MYELOCYTES % (M) 1 % (0-0); PLATELET ESTIMATE DECREASED; SEGMENTED NEUTROPHILS (M) % 84 % (39-77); SMUDGE%M 20 % (0-0); STOMATOCYTES 1+ (0-0); TARGET CELLS 2+ (0-0)
[2018-04-25 12:10] LABS: AHG CROSSMATCH 1 2
[2018-04-25] MEDS: METHADONE 5 MG TAB PO (14:26)
[2018-04-25 17:23] LABS: ABNORMAL IP MESSAGE 1; HEMATOCRIT 18.9 % (42.0-52.0); MEAN CORPUSCULAR HEMOGLOBIN 30.3 pg (29.0-33.0); MEAN CORPUSCULAR VOLUME 81.8 fl (82.0-101.0); MEAN PLATELET VOLUME 13.3 fl (7.4-10.4); NUCLEATED RED BLOOD CELLS% 0.5 /100WBC (0.0-0.0); PLATELET COUNT 159 10^3/UL (140-415); POSITIVE DIFF @See below; RED BLOOD COUNT 2.31 10^6/ul (4.70-6.10); RED CELL DISTRIBUTION WIDTH 16.2 % (11.5-14.5)
[2018-04-25 17:23] LABS: WHITE BLOOD COUNT 29.8 10^3/ul (4.8-10.8)
[2018-04-25 17:25] LABS: ADD MAN DIFF? YES
[2018-04-25] MEDS: [UNRECOGNIZED DRUG - REMARK] XX (18:33)
[2018-04-25 18:57] LABS: ANISOCYTOSIS 2+ (0-0); BURR CELLS 1+ (0-0); EOSINOPHILS % (M) 1 % (0-7); ERYTHROBLAST% (NRBC) (M) 3 % (0-0); GIANT THROMBO% (M) 4 % (0-0); HYPOCHROMASIA 1+ (0-0); LYMPHOCYTES % (M) 7 % (15-51); MICROCYTOSIS 1+ (0-0); MONOCYTE #M 0.8 10^3/ul (0.3-0.9); MONOCYTES % (M) 3 % (0-11); PLATELET ESTIMATE NORMAL; POIKILOCYTOSIS 2+ (0-0); POLYCHROMASIA 1+ (0-0); SEGMENTED NEUTROPHILS (M) % 89 % (39-77); SMUDGE%M 23 % (0-0); TARGET CELLS 1+ (0-0)
[2018-04-25] MEDS: TAMSULOSIN (SR) 0.4 MG CAP PO (20:33)
[2018-04-26] MEDS: [UNRECOGNIZED DRUG - REMARK] XX ×3 (02:00→17:30)
[2018-04-26] MEDS: PANTOPRAZOLE (EC) 40 MG TAB PO ×2 (05:56→18:00)
[2018-04-26] MEDS: LEVOTHYROXINE 50 MCG TAB PO (05:56)
[2018-04-26 06:56] LABS: ABNORMAL IP MESSAGE 1; HEMATOCRIT 18.8 % (42.0-52.0); MEAN CORPUSCULAR HGB CONC 37.2 g/dl (32.0-37.0); MEAN CORPUSCULAR VOLUME 80.7 fl (82.0-101.0); MEAN PLATELET VOLUME 13.2 fl (7.4-10.4); NUCLEATED RED BLOOD CELLS% 0.6 /100WBC (0.0-0.0); PLATELET COUNT 137 10^3/UL (140-415); POSITIVE DIFF @See below; RED BLOOD COUNT 2.33 10^6/ul (4.70-6.10); RED CELL DISTRIBUTION WIDTH 16.2 % (11.5-14.5)
[2018-04-26 06:56] LABS: WHITE BLOOD COUNT 33.4 10^3/ul (4.8-10.8)
[2018-04-26 07:01] LABS: ADD MAN DIFF? YES
[2018-04-26 07:34] LABS: ANISOCYTOSIS 2+ (0-0); BAND NEUTROPHILS #M 0.6 10^3/ul (0.0-0.6); BAND NEUTROPHILS % (M) 2 % (0-4); BASOPHIL #M 0.3 10^3/ul (0.0-0.0); BASOPHILS % (M) 1 % (0-2); ERYTHROBLAST% (NRBC) (M) 1 % (0-0); GIANT THROMBO% (M) 8 % (0-0); HYPOCHROMASIA 1+ (0-0); LYMPHOCYTES #M 3.3 10^3/ul (0.8-2.9); LYMPHOCYTES % (M) 10 % (15-51); MONOCYTES % (M) 6 % (0-11); PLATELET ESTIMATE DECREASED; REACTIVE LYMPHOCYTES #M 0.6 10^3/ul (0.0-0.0); REACTIVE LYMPHOCYTES% (M) 2 % (0-0); SEG NEUT #M 26.6 10^3/ul (1.6-7.5); SEGMENTED NEUTROPHILS (M) % 79 % (39-77); TARGET CELLS 3+ (0-0)
[2018-04-26 07:38] LABS: ANION GAP 11 (5-13); BLOOD UREA NITROGEN 34 mg/dl (7-20); CALCIUM 7.7 mg/dl (8.4-10.2); CARBON DIOXIDE 26 mmol/L (21-31); CHLORIDE 103 mmol/L (97-110); Estimated GFR 31 mL/min (>60); GLUCOSE 85 mg/dl (70-220); MAGNESIUM 2.2 mg/dl (1.7-2.5); PHOSPHORUS 1.4 mg/dl (2.5-4.9); POTASSIUM 4.3 mmol/L (3.5-5.1); SODIUM 140 mmol/L (135-144)
[2018-04-26] MEDS: LACTULOSE 30ML CUP PO (09:00)
[2018-04-26] MEDS: BALSAM PERU/CASTOR OIL 60 GM TUBE TOP (09:00)
[2018-04-26] MEDS: POTASSIUM CHLORIDE (SR) 20 MEQ TAB PO (09:19)
[2018-04-26] MEDS: FOLIC ACID 1 MG TAB PO (09:19)
[2018-04-26] MEDS: URSODIOL 300 MG CAP PO (09:19)
[2018-04-26] MEDS: FINASTERIDE 5 MG TAB PO (09:20)
[2018-04-26] MEDS: AMIODARONE 200 MG TAB PO (09:20)
[2018-04-26] MEDS: RIFAXIMIN 550 MG TAB PO (09:20)
[2018-04-26] MEDS: DICLOFENAC SODIUM 1% GEL 100 GM TUBE TP ×3 (09:21→17:00)
[2018-04-26] MEDS: NEUTRA-PHOS 250 MG PACKET PO (10:30)
[2018-04-26] MEDS: METHADONE 5 MG TAB PO (12:05)
== END 2018-04-26 18:42 | disposition short-term general hospital (02) | DRG 393 ==
LOC: TEL 04-07 09:53 → E/R 13:12 → ICU 16:33
PROC: 0DJD8ZZ Inspection of Lower Intestinal Tract, Via Natural or Artificial Opening Endoscopic (ICD-10-PCS; 2018-04-01 15:30)
PROC: 0W3P8ZZ Control Bleeding in Gastrointestinal Tract, Via Natural or Artificial Opening Endoscopic (ICD-10-PCS; 2018-04-01 15:30)
PROC: 0JH63XZ Insertion of Tunneled Vascular Access Device into Chest Subcutaneous Tissue and Fascia, Percutaneous Approach (ICD-10-PCS; principal; 2018-04-01 17:30)
PROC: 02H633Z Insertion of Infusion Device into Right Atrium, Percutaneous Approach (ICD-10-PCS; 2018-04-01 17:30)
PROC: B214YZZ Fluoroscopy of Right Heart using Other Contrast (ICD-10-PCS; 2018-04-01 17:30)
PROC: 30233K1 Transfusion of Nonautologous Frozen Plasma into Peripheral Vein, Percutaneous Approach (ICD-10-PCS; 2018-04-01 17:30)
PROC: 30233N1 Transfusion of Nonautologous Red Blood Cells into Peripheral Vein, Percutaneous Approach (ICD-10-PCS; 2018-04-01 17:30)
PROC: 06HM33Z Insertion of Infusion Device into Right Femoral Vein, Percutaneous Approach (ICD-10-PCS; 2018-04-01 17:30)
PROC: 02HV33Z Insertion of Infusion Device into Superior Vena Cava, Percutaneous Approach (ICD-10-PCS; 2018-04-01 17:30)
PROC: 5A1D70Z Performance of Urinary Filtration, Intermittent, Less than 6 Hours Per Day (ICD-10-PCS; 2018-04-01 17:30)
PROC: 0S9B3ZZ Drainage of Left Hip Joint, Percutaneous Approach (ICD-10-PCS; 2018-04-01 17:30)
DX: K91.89 Other postprocedural complications and disorders of digestive system (principal); A41.9 Sepsis, unspecified organism; K85.90 Acute pancreatitis without necrosis or infection, unspecified; N17.0 Acute kidney failure with tubular necrosis; R65.21 Severe sepsis with septic shock; K83.1 Obstruction of bile duct; K76.7 Hepatorenal syndrome; D68.62 Lupus anticoagulant syndrome; D68.4 Acquired coagulation factor deficiency; E87.1 Hypo-osmolality and hyponatremia; E87.4 Mixed disorder of acid-base balance; E87.2 Acidosis; K92.2 Gastrointestinal hemorrhage, unspecified; D57.1 Sickle-cell disease without crisis; D69.6 Thrombocytopenia, unspecified; E03.9 Hypothyroidism, unspecified; E11.9 Type 2 diabetes mellitus without complications; E87.6 Hypokalemia; E88.09 Other disorders of plasma-protein metabolism, not elsewhere classified; I10 Essential (primary) hypertension; I48.0 Paroxysmal atrial fibrillation; K21.9 Gastro-esophageal reflux disease without esophagitis; K74.60 Unspecified cirrhosis of liver; K57.90 Diverticulosis of intestine, part unspecified, without perforation or abscess without bleeding; K72.90 Hepatic failure, unspecified without coma; K59.00 Constipation, unspecified; M06.9 Rheumatoid arthritis, unspecified; M19.90 Unspecified osteoarthritis, unspecified site; M25.552 Pain in left hip; M79.605 Pain in left leg; Q27.33 Arteriovenous malformation of digestive system vessel; N40.1 Benign prostatic hyperplasia with lower urinary tract symptoms; R33.8 Other retention of urine; Z96.643 Presence of artificial hip joint, bilateral; Z96.652 Presence of left artificial knee joint; Z90.49 Acquired absence of other specified parts of digestive tract; Z79.01 Long term (current) use of anticoagulants
CPT/HCPCS: 36415; 36430; 36569; 36600; 71045; 73510; 73562; 74176; 74181; 76705; 76775; 76937; 77002; 78226; 78278; 80048; 80053; 80076; 80202; 81001; 81003; 82043; 82140; 82150; 82803; 82962; 83010; 83036; 83605; 83615; 83690; 83735; 84100; 84145; 84155; 84300; 84436; 84443; 84479; 85014; 85018; 85025; 85045; 85384; 85610; 85730; 86022; 86644; 86706; 86850; 86900; 86901; 86920; 87040; 87045; 87075; 87081; 87086; 87205; 87340; 90935; 93005; 93971; 97110; 97116; 97162; 97530; 99291-25